=== PATIENT | female | born 1945 | race African-American/Black ===

== ENCOUNTER 2016-11-23 12:37 | Inpatient (IN) ==
--- NOTE | 2016-11-23 12:50 | Emergency Department Note ---
Disposition Clinical Impression: Hyperkalemia, Refusal of blood transfusions as patient is Shinto Anemia in chronic kidney disease (CKD) Qualifiers: Chronic kidney disease stage: stage 5, not on chronic dialysis Qualified Code(s ): N18.5 - Chronic kidney disease, stage 5 CKD (chronic kidney disease) Qualifiers: Chronic kidney disease stage: stage 5, not on chronic dialysis Qualified Code(s ): N18.5 - Chronic kidney disease, stage 5 Disposition: Admitted As Inpatient Referrals: Abelino Dunlap MD [Primary Care Provider] - Forms: ED Satisfaction Letter Weakness HPI - General Chief complaint: ED Recheck/Abnormal Lab/Rx Stated complaint: Abnormal Labs Time Seen by Provider: 11/23/16 12:42 Source: patient Mode of arrival: EMS Nursing Notes Reviewed: Yes Vital Signs Reviewed: Yes - History of Present Illness Pt Subjective Complaint: generalized weakness/fatigue Onset (ago): week(s) (3) Duration: constant Location: generalized Improves with: none Worsens with: none Associated symptoms: Reports: denies other symptoms, other (Patient was admitted in July received IV iron infusion and Procrit injection she followed nephrology in [place] but they were considering dialysis in the near future) - Related Data Allergies Allergy/AdvReac Type Severity Reaction Status Date / Time No Known Allergies Allergy Verified 11/23/16 12:58 All systems ED: reviewed and negative except as stated. Constitutional: Reports: weakness. Denies: fever, chills Respiratory: Denies: dyspnea, wheezes, hemoptysis Gastrointestinal: Denies: hematemesis, melena, hematochezia Past Medical History - Past Medical History Source: patient, obtained from family, nursing notes reviewed Medical history: Reports: renal disease Physical Exam - General Limitations: no limitations General appearance: alert, in no apparent distress - Head Head exam: atraumatic, normocephalic, normal inspection - Eye Eye exam: Present: normal appearance, PERRL, EOMI - Expanded Eye Exam Pupils: Left: reactive - ENT ENT exam: normal exam, normal oropharynx, mucous membranes moist - Expanded ENT Exam External ear exam: Present: normal external inspection Mouth exam: Present: normal external inspection Teeth exam: Present: normal inspection Throat exam: Present: normal inspection - Neck Neck exam: Present: normal inspection, full ROM, trachea midline - Chest Chest inspection: Present: normal inspection, symmetric chest wall rise - Respiratory Respiratory exam: Present: normal lung sounds bilaterally - Cardiovascular Cardiovascular exam: Present: systolic murmur - Abdominal Exam Abdominal exam: Present: soft, Non-Tender. Absent: tenderness, distention, guarding, rebound, rigidity - Extremities Exam Extremities exam: Present: normal inspection, full ROM. Absent: tenderness, pedal edema - Expanded Upper Extremity Exam Shoulder exam: Present: normal inspection, full ROM Arm exam: Present: normal inspection, full ROM Elbow exam: Present: normal inspection, full ROM Forearm/Wrist exam: Present: normal inspection, full ROM Hand exam: Present: normal inspection, full ROM Vascular exam: Normal: capillary refill, radial pulse - Expanded Lower Extremity Exam Hip/Pelvis exam: Present: normal inspection, full ROM Upper leg exam: Present: normal inspection, full ROM Knee exam: Present: normal inspection, full ROM Lower leg exam: Present: other (2+ bilat pitting edema) Ankle exam: Present: normal inspection, full ROM Foot/toe exam: Present: normal inspection, full ROM Neurovascular/Tendon exam: Absent: motor deficit, sensory deficit, tendon deficit - Back Exam Back exam: Present: normal inspection, full ROM. Absent: tenderness - Neurological Exam Neurological exam: Present: alert, oriented X3 - Expanded Neurological Exam Patient oriented to: Present: person, place, time Coma Scale Eye Opening: Spontaneous Coma Scale Motor Response: Obeys Commands Coma Scale Verbal Response: Oriented Coma Scale Total: 15 - Psychiatric Psychiatric exam: Present: normal affect, normal mood - Skin Skin exam: Present: warm, dry, intact, normal color Course - Consultations Consultation #1: Dr. Pineda consulted gentle IV fluid hydration, one dose 45gm kayexalate, no IV iron, will see today in the afternoon after clinic on the floor. Time: 14:27 Vital Signs Temperature 98.0 F 11/23/16 12:43 Pulse Rate 66 11/23/16 12:43 Respiratory Rate 16 11/23/16 12:43 Blood Pressure 187/70 11/23/16 12:43 O2 Sat by Pulse Oximetry 100 11/23/16 12:43 Temperature 98.0 F 11/23/16 12:43 Pulse Rate 69 11/23/16 14:18 Respiratory Rate 16 11/23/16 14:18 Blood Pressure 183/69 11/23/16 14:18 O2 Sat by Pulse Oximetry 100 11/23/16 14:18 Oxygen Delivery Oxygen Delivery Room Air Weakness - Lab Data Result diagrams: 11/23/16 13:10 11/23/16 13:10 Lab Results 11/23/16 11/23/16 11/23/16 Range/Units 13:10 13:10 13:10 WBC 6.8 (4.3-11.1) K/mcL RBC 1.98 L (3.82-4.97) M/mcL Hgb 6.1 L (11.5-15.4) g/dL Hct 20.2 L (35.3-44.9) % MCV 102.0 H (83.0-100.0) fL MCH 30.8 (28.0-33.3) pg MCHC 30.2 L (31.6-35.5) g/dL RDW 14.8 H (11.5-14.5) % Plt Count 190 (140-400) K/mcL MPV 10.4 (9.4-12.4) fL Immature Gran % 1.0 (0-4) % Seg Neutrophils % 71.0 % Lymphocytes % 22.1 % Monocytes % 3.4 % Eosinophils % 2.1 % Basophils % 0.4 % Neutrophils # 4.8 (1.6-8.9) K/mcL Lymphocytes # 1.5 (0.6-4.6) K/mcL Monocytes # 0.2 (0.0-1.3) K/mcL Eosinophils # 0.1 (0.0-0.6) K/mcL Basophils # 0.0 (0.0-0.2) K/mcL PT 10.8 (9.4-12.1) Seconds INR 1.0 APTT 40.8 H (26.0-36.0) Seconds Sodium 137 (136-145) mEq/L Potassium 5.6 H (3.5-4.5) mEq/L Chloride 113 H (98-109) mEq/L Carbon Dioxide 18 L (19-29) mEq/L BUN 69 H (7-20) mg/dL Creatinine 6.45 H (0.57-1.11) mg/dL Est GFR ( Amer) 8 L (> 60) Est GFR (Non-Af Amer) 6 L (> 60) BUN/Creatinine Ratio 11 (6-26) Glucose 89 (70-99) mg/dL Calculated Osmolality 304 H (280-300) Calcium 8.8 (8.6-10.8) mg/dL Magnesium 1.7 (1.6-2.6) mg/dL Iron (50-170) mcg/dL % Saturation (15-50) % Transferrin (180-382) mg/dL TSH 3.367 (0.350-4.840) mcIU/mL Blood Type Antibody Screen 11/23/16 11/23/16 Range/Units 13:10 13:10 WBC (4.3-11.1) K/mcL RBC (3.82-4.97) M/mcL Hgb (11.5-15.4) g/dL Hct (35.3-44.9) % MCV (83.0-100.0) fL MCH (28.0-33.3) pg MCHC (31.6-35.5) g/dL RDW (11.5-14.5) % Plt Count (140-400) K/mcL MPV (9.4-12.4) fL Immature Gran % (0-4) % Seg Neutrophils % % Lymphocytes % % Monocytes % % Eosinophils % % Basophils % % Neutrophils # (1.6-8.9) K/mcL Lymphocytes # (0.6-4.6) K/mcL Monocytes # (0.0-1.3) K/mcL Eosinophils # (0.0-0.6) K/mcL Basophils # (0.0-0.2) K/mcL PT (9.4-12.1) Seconds INR APTT (26.0-36.0) Seconds Sodium (136-145) mEq/L Potassium (3.5-4.5) mEq/L Chloride (98-109) mEq/L Carbon Dioxide (19-29) mEq/L BUN (7-20) mg/dL Creatinine (0.57-1.11) mg/dL Est GFR ( Amer) (> 60) Est GFR (Non-Af Amer) (> 60) BUN/Creatinine Ratio (6-26) Glucose (70-99) mg/dL Calculated Osmolality (280-300) Calcium (8.6-10.8) mg/dL Magnesium (1.6-2.6) mg/dL Iron 47 L (50-170) mcg/dL % Saturation 29 (15-50) % Transferrin 115 L (180-382) mg/dL TSH (0.350-4.840) mcIU/mL Blood Type O POSITIVE Antibody Screen NEGATIVE
[2016-11-23 13:22] LABS: Basophils % 0.4 %; Eosinophils # 0.1 K/mcL (0.0-0.6); Eosinophils % 2.1 %; Hematocrit 20.2 % (35.3-44.9); Lymphocytes # 1.5 K/mcL (0.6-4.6); Lymphocytes % 22.1 %; Mean Corpuscular HGB Conc 30.2 g/dL (31.6-35.5); Mean Corpuscular Hemoglobin 30.8 pg (28.0-33.3); Mean Platelet Volume 10.4 fL (9.4-12.4); Monocytes # 0.2 K/mcL (0.0-1.3); Monocytes % 3.4 %; Neutrophils # 4.8 K/mcL (1.6-8.9); Platelet Count 190 K/mcL (140-400); Red Blood Count 1.98 M/mcL (3.82-4.97); Red Cell Distribution Width 14.8 % (11.5-14.5)
[2016-11-23 13:34] LABS: Calcium 8.8 mg/dL (8.6-10.8); Magnesium 1.7 mg/dL (1.6-2.6); Potassium 5.6 mEq/L (3.5-4.5); Prothrombin Time 10.8 Seconds (9.4-12.1)
[2016-11-23 13:35] LABS: % Iron Saturation 29 % (15-50); Iron 47 mcg/dL (50-170); Transferrin 115 mg/dL (180-382)
[2016-11-23 13:37] LABS: Activated Partial Thrombo Time 40.8 Seconds (26.0-36.0)
[2016-11-23 13:46] LABS: Hemoglobin 6.1 g/dL (11.5-15.4)
[2016-11-23 13:56] LABS: Thyroid Stimulating Hormone 3.367 mcIU/mL (0.350-4.840)
[2016-11-23] MEDS ORDERED: 0.9 % Sodium Chloride 1,000 ML IVC ONE (14:25)
[2016-11-23] MEDS ORDERED: cloNIDine HCl 0.1 MG TABLET PO ONE (14:36)
--- NOTE | 2016-11-23 14:44 | Internal Med History&Physical ---
<MandeepPayam Flores - Last Filed: 11/23/16 16:35> Date of Encounter: 11/23/16 Time of Encounter: 14:45 Assessment and Plan (1) Anemia in chronic kidney disease (CKD) Current visit: Yes Status: Acute Patient presents with acute on chronic anemia based on current drop in H/H. Upon admission today, patient's Hgb was 6.1 and Hct was 20.2. On 05/09/16, patient 's Hgb was 7.9 and Hct was 25.2. Patient currently is in stage V CKD wth a GFR of 6. Patient refuses transfusions due to muslim beliefs. Risks and dangers explained to patient who acknowledged understanding and still refused transfusions if needed. Patient has received IV iron and Procrit injections in the past. Nephrology consult ordered. Per Dr. Pineda, patient to have gentle IV fluid hydration (75 mL/HR), no IV iron, and one dose of 45 gm kayexalate for current hyperkalemia. Will monitor patient through follow-up labs and H/H ordered Q6. Will continue patient's PO ferrous sulfate and folic acid. Qualifiers: Chronic kidney disease stage: stage 5, not on chronic dialysis Qualified Code(s): N18.5 - Chronic kidney disease, stage 5; D63.1 - Anemia in chronic kidney disease (2) Refusal of blood transfusions as patient is [employer] Current visit: Yes Status: Acute Patient refuses blood transfusions due to her muslim beliefs as being a [employer]. Patient has a history of chronic anemia and current Hgb is 6.1 and Hct is 20.2 today. On 05/09/16, patient's Hgb was 7.9 and Hct was 25.2. Patient denies any unusual or active bleeding at this time. Type and screen and transfusion is not an option for this patient due to her muslim beliefs. Risks and outcomes were explained to the patient regarding not receiving transfusion of RBCs for which she confirmed understanding. Patient denied transfusion again following risk/outcome discussion. Ms. Park does report receiving IV iron and Procrit injections in the past due to similar symptoms, with the last time on July 11, 2016. (3) Weakness of both lower extremities Current visit: Yes Status: Acute Patient presents with history of acute weakness of bilateral lower extremities most likely due to current anemia. Patient placed as falls precautions/up with assist/bed rest with bedside commode with assist only due to weakness. PT/OT consults ordered to assess patient for strengthening exercises and needs. SW consult ordered to assess patient's home needs post-discharge. (4) Hyperkalemia Current visit: Yes Status: Acute Patient presents with acute hyperkalemia upon admission to the ED with a potassium level of 5.6. Patient currently has chronic anemia, CKD stage V w/o dialysis, and uses daily Lasix for diagnosis of CHF. Patient given 1 dose of 45 g Kayexalate while in the ED. Will monitor patient's potassium levels to follow-up labs. (5) HTN (hypertension) Current visit: Yes Status: Chronic Patient presents with history of chronic hypertension. Patient's BP on admission to the ED today was 187/70 and 183/69. We will monitor patient vital signs and continue patient's Coreg and hydralazine. Qualifiers: Hypertension type: essential hypertension Qualified Code(s): I10 - Essential (primary) hypertension (6) Diabetes Current visit: Yes Status: Chronic Patient presents with history of chronic diabetes for which she states she only uses sliding scale when needed. A1c ordered. Blood glucose ACHS. Will use low- dose correction insulin sliding scale and hypoglycemia protocol. Diabetic diet ordered with 1.5L daily fluid restriction. Qualifiers: Diabetes mellitus type: type 2 Diabetes mellitus complication status: with kidney complications Diabetes mellitus complication detail: with chronic kidney disease Diabetes mellitus residential insulin use: unspecified residential insulin use status Chronic kidney disease stage: stage 5, not on chronic dialysis Qualified Code(s): E11.22 - Type 2 diabetes mellitus with diabetic chronic kidney disease; N18.5 - Chronic kidney disease, stage 5 (7) CHF (congestive heart failure) Current visit: Yes Status: Chronic Patient presents with history of chronic congestive heart failure. Patient reports some mild shortness of breath related to CHF currently but does not appear to be fluid overloaded. 1.5 L fluid restriction daily ordered. DuoNeb' s every 4 when necessary ordered. Patient placed on continuous cardiac telemetry with order for echocardiogram and CXR. Will monitor patient and vital signs. Qualifiers: Congestive heart failure type: unspecified congestive heart failure type Congestive heart failure chronicity: chronic Qualified Code(s): I50.9 - Heart failure, unspecified (8) CKD (chronic kidney disease) Current visit: Yes Status: Chronic Patient presents with stage V chronic kidney disease with a current GFR of 6. Patient is not currently on dialysis and reports she is able to make large amounts of urine due to the Lasix she takes daily. Patient's current creatinine is 6.45 on admission. Consult to nephrology placed in ED and per Dr. Villeda, patient received gentle IV fluid hydration, 1 dose of 45 g Kayexalate, and no IV iron. He will see patient today. 1.5 L fluid restriction daily and will monitor patient's I&O and daily weight. Qualifiers: Chronic kidney disease stage: stage 5, not on chronic dialysis Qualified Code(s): N18.5 - Chronic kidney disease, stage 5 (9) DVT prophylaxis Current visit: Yes Status: Acute Patient to be placed on DVT prophylaxis due to current admission protocol and bed rest status. Due to patient's chronic anemia due to possible GI bleed of unknown source, pharmacologic prophylaxis is contraindicated at this time. Fecal occult stool ordered. Will place SCDs on patient's bilateral LEs for DVT prophylaxis. Internal Medicine - H&P: HPI Chief complaint: Abnormal labs/ Admitted From: Emergency Dept Plans for Post Hospital Care: Home History of present illness: Ms. Park is a 71 year old female who presents from the ED for follow-up of abnormal lab values. Patient has a history of chronic anemia and current Hgb is 6.1 and Hct is 20.2 today. On 05/09/16, patient's Hgb was 7.9 and Hct was 25.2. Patient denies any unusual or active bleeding at this time. Type and screen and transfusion is not an option for this patient due to her muslim beliefs. Risks and outcomes were explained to the patient regarding not receiving transfusion of RBCs for which she confirmed understanding. Patient denied transfusion again following risk/outcome discussion. Ms. Park does report receiving IV iron and Procrit injections in the past due to similar symptoms, with the last time on July 11, 2016. Patient presently has a heart murmur on examination which she reports she has had since childhood. Patient is not currently on anticoagulation with the exception of 81 mg aspirin daily. Patient also has stage V kidney disease and has had prior discussions regarding the need for possible dialysis. Patient states that she currently takes lasix and is able to make large amounts of urine, but is sometimes incontinent. Patient's medical history includes, CKD stage V, DM, HTN, and CHF. Patient reports frequent falls due to bilateral leg weakness and some SOB related to her CHF but denies recent illness, fever, chills, nausea, vomiting, headaches, abdominal pain, unusual bleeding, dizziness, pre-syncope, or syncope. Patient is at high risk for further morbidity due to current anemia, weakness, and co- morbid conditions and will be placed as observation status with orders for Nephrology consult placed in the ED. Per Dr. Pineda, patient to receive gentle IV fluid hydration, one dose of 45 gm kayexalate, and no IV iron. Dr. Pineda will see Ms. Park today for further evaluation. Patient placed on continuous telemetry due to current hyperkalemia. Orders for echocardiogram and CXR placed. Will continue patient's home meds with diabetic diet and fluid restriction of 1.5L daily ordered. Will monitor I&O and daily weight and well as H/H Q6. Patient to be monitored closely for signs of cardiac and/or respiratory distress. Time spent with patient and family >40 minutes. Past Med Surg Social Fam HX - Past Medical History Source: patient Medical history: CHF, diabetes (Patient reports using only sliding scale insulin when needed), hypertension, renal disease Psychiatric history: no psych history - Social History Smoking Status: Former smoker Packs per day: 1/2 PPD - reports quitting in 1973 Smokeless Tobacco Status: No Alcohol use: none Drug use: none Occupational status: previously employed Current living situation: Home, With Family Activity Level: Uses cane/walker Recent Out of Country Travel Within the Last 8 Weeks: No Exposure or Possible Exposure to Illness During Travel: No - Family History Father Race: Family Member Ethnicity: Non- Living Status: Age at : 80 Cause of : Prostate cancer Hx Family Cardiac Disorders: Yes (HTN) Hx Family Cancer: Yes (Prostate) Hx Family Endocrine Disorder: Yes (DM) Mother Race: Family Member Ethnicity: Non- Living Status: Age at : 62 Cause of : Complications from DM Hx Family Cardiac Disorders: Yes (HTN) Hx Family Endocrine Disorder: Yes (DM) Brother Race: Family Member Ethnicity: Non- Living Status: Age at : 39 Cause of : DVT Hx Family Cardiac Disorders: Yes (DVT) Sister Race: Family Member Ethnicity: Non- Living Status: Age at : 59 Cause of : Complications from DM Hx Family Cardiac Disorders: Yes (HTN) Internal Medicine - H&P: Meds Aspirin [Lo-Dose Aspirin EC] 81 mg PO DAILY 11/23/16 [History] Carvedilol [Coreg] 25 mg PO BID 11/23/16 [History] CloNIDine HCl [Kapvay] 0.1 mg PO TID 11/23/16 [History] Ferrous Sulfate [Iron] 325 mg PO DAILY 11/23/16 [History] Folic Acid 1 mg PO DAILY 11/23/16 [History] Furosemide [Lasix] 20 mg PO MOWEFR 11/23/16 [History] Furosemide [Lasix] 40 mg PO TUTHSA 11/23/16 [History] Hydralazine HCl 100 mg PO TID 11/23/16 [History] Isosorbide MONOnitrate [Isosorbide Mononitrate ER] 120 mg PO DAILY 11/23/16 [ History] NIFEdipine [Nifedipine ER] 90 mg PO DAILY 11/23/16 [History] 3 Allergy/AdvReac Type Severity Reaction Status Date / Time No Known Allergies Allergy Verified 11/23/16 12:58 All Systems PM: A 10-system review of systems was performed and is negative for pertinent findings except as documented above in the HPI. - Constitutional Constitutional: as per HPI, falls, weakness (Bilateral LEs), no chills, no fever (s), no night sweats - EENT Eyes: no change in vision, no discharge, no pain, no photophobia Ears: no ear discharge, no ear pain, no tinnitus Nose, mouth and throat: no dysphagia, no nasal discharge, no neck pain, no sore throat - Breasts Breasts: as per HPI - Cardiovascular Cardiovascular ROS IM: as per HPI, dyspnea, irregular heart rhythm - Respiratory Respiratory: as per HPI, dyspnea - Gastrointestinal Gastrointestinal: no abdominal pain, no diarrhea, no hematemesis, no hematochezia, no melena, no nausea, no vomiting - Genitourinary Genitourinary: no change in urinary stream, no dysuria, no flank pain, no hematuria Menstruation: as per HPI - Musculoskeletal Musculoskeletal ROS IM: no numbness, no tingling - Integumentary Integumentary IM: no rash, no unusual bruising - Neurological Neurological ROS: no confusion, no convulsions, no focal weakness, no numbness, no tingling, no tremor(s) - Psychiatric Psychiatric: as per HPI - Endocrine Endocrine IM: as per HPI - Hematologic/Lymphatic Hematologic/Lymphatic: no easy bruising - Allergic/Immunologic Allergic/Immunologic: as per HPI - Constitutional Vitals: Temp Pulse Resp BP Pulse Ox 98.0 F 69 16 183/69 100 11/23/16 12:43 11/23/16 14:18 11/23/16 14:18 11/23/16 14:18 11/23/16 14:18 General appearance: Present: cooperative, A&O X 3, pleasant, no acute distress, obese, answers questions appropriately - Head Head exam: Present: atraumatic, normocephalic - Eye Eye exam: Present: PERRL, conjuntiva pink, sclera anicteric Pupils: Present: PERRL - ENT ENT exam: Present: normal exam, normal external ear exam - Neck Neck exam general surgery: Present: normal inspection, supple, trachea midline. Absent: lymphadenopathy - Respiratory Respiratory exam: Present: CTAB. Absent: accessory muscle use, rales, rhonchi, wheezes - Cardiovascular Cardiovascular exam: Present: irregular rhythm - GI/Abdominal GI/Abdominal exam: Present: normal bowel sounds, soft, no peritoneal signs. Absent: distended, tenderness - Rectal Rectal exam: Present: deferred - Additional comments: exam deferred. - Extremities Exam Extremities exam: Present: pedal edema, warm, radial pulses palpable and symmetrical - Back Exam Back exam: Present: normal inspection - Neurological Exam Neurological exam: Present: CN II-XII intact, oriented X3, no focal deficits. Absent: pronater drift, facial droop, speech deficit - Psychiatric Psychiatric exam: Present: normal affect, normal mood - Skin Skin exam: Present: dry, intact Internal Med - H&P Results - Labs CBC & Chem 7: 11/23/16 16:08 11/23/16 13:10 Labs: Short CBC 11/23/16 Range/Units 13:10 WBC 6.8 (4.3-11.1) K/mcL Hgb 6.1 L (11.5-15.4) g/dL Hct 20.2 L (35.3-44.9) % Plt Count 190 (140-400) K/mcL Neutrophils # 4.8 (1.6-8.9) K/mcL BMP 11/23/16 13:10 Sodium 137 Potassium 5.6 H Chloride 113 H Carbon Dioxide 18 L BUN 69 H Creatinine 6.45 H Glucose 89 Calcium 8.8 <Orlando Mohan - Last Filed: 11/23/16 19:30> Date of Encounter: 11/23/16 Internal Medicine - H&P: HPI History of present illness: Ms. Park is a 71 year old female All Systems PM: A 10-system review of systems was performed and is negative for pertinent findings except as documented above in the HPI. - Constitutional Vitals: Temp Pulse Resp BP Pulse Ox 98.3 F 91 17 205/65 94 11/23/16 15:43 11/23/16 15:43 11/23/16 15:43 11/23/16 15:43 11/23/16 15:43 Internal Med - H&P Results - Labs CBC & Chem 7: 11/23/16 16:08 11/23/16 13:10 Labs: Short CBC 11/23/16 Range/Units 16:08 Hgb 6.3 L (11.5-15.4) g/dL Hct 21.3 L (35.3-44.9) % - Impressions ITS Impressions Chest X-Ray 11/23/16 15:16 IMPRESSION: Left basilar airspace disease, atelectasis or pneumonia. Asymmetric pulmonary edema is considered less likely. D/ / Julianne Nova Cha, MD / Julianne Nova Cha, MD Interpreting Provider: Julianne Nova Cha, MD - Attending Attestation I saw and examined pt. I have discussed with CHANNEL REBUILDER regarding the management plan, agree with the documentation. Pt came with low Hgb, refuse transfusion b/o muslim belief. Anemia was considered by CKD. Nephrology consult appreciated. Recommendation will be followed.
[2016-11-23] MEDS ORDERED: Ondansetron 4 MG/2 ML VIAL IVP PRN (15:12)
[2016-11-23] MEDS ORDERED: Acetaminophen 325 MG TABLET PO PRN (15:12)
[2016-11-23] MEDS ORDERED: *HR* HYDROcodone/Acet 5/325 mg TABLET PO PRN (15:12)
[2016-11-23] MEDS ORDERED: Naloxone 0.4 MG/ML INJ IVP PRN (15:12)
[2016-11-23] MEDS ORDERED: D5% in Water 1,000 ML IVC PRN (16:01)
[2016-11-23] MEDS ORDERED: *HR* Dextrose 50 % in Water (Syg) 50 ML SYRINGE IVP PRN (16:01)
[2016-11-23] MEDS ORDERED: Dextrose Gel 15 GM PO PRN ×2 (16:01)
[2016-11-23] MEDS ORDERED: Ipratropium/Albuterol Neb 3 ML IH PRN (16:18)
[2016-11-23 16:31] LABS: Hematocrit 21.3 % (35.3-44.9); Hemoglobin 6.3 g/dL (11.5-15.4)
[2016-11-23] MEDS ORDERED: Nitroglycerin 1 INCH/GM PACKET ONE (17:51)
[2016-11-23] MEDS: Furosemide 20 MG TABLET PO SCH (17:59)
[2016-11-23] MEDS: Pantoprazole 40 MG VIAL IVP SCH (17:59)
--- NOTE | 2016-11-23 17:59 | Nephrology Consult Note ---
Date of Encounter: 11/23/16 Time of Encounter: 17:56 Assessment and Plan (1) CKD (chronic kidney disease), stage V Current Visit: Yes Status: Chronic Will hold off on HD tonight but should aim to lower BPs. Hydralazine IV, Nitro paste, and then if needed nicardipen gtt. Will arrange for IV iron but she is too hypertensive for any EPO tonight. She is new to the [facility], originally from [place], [place]. She said that she has not seen a automobile upholstery trim installer here locally. Just in case she needs a Permacath before discharge, please hold ASA and/or any antiplatelet agent. Thank you for consulting the [facility]. Will follow with you (2) Anemia in chronic kidney disease (CKD) Current Visit: Yes Status: Chronic Suspect she has an acute on already chronically severe anemia. Mild iron def, so will provide IV iron since she refuses PRBCs. Would not add EPO tonight d/t severely elevated HTN. Qualifiers: Chronic kidney disease stage: stage 5, not on chronic dialysis Qualified Code(s): N18.5 - Chronic kidney disease, stage 5; D63.1 - Anemia in chronic kidney disease (3) Hyperkalemia Current Visit: Yes Status: Acute Kayexalate today. (4) Refusal of blood transfusions as patient is Baptism Current Visit: Yes Status: Chronic See above (5) Weakness of both lower extremities Current Visit: Yes Status: Acute Generalized weakness likely d/t advanced CKD and anemia. (6) HTN (hypertension) Current Visit: Yes Status: Chronic See above Qualifiers: Hypertension type: essential hypertension Qualified Code(s): I10 - Essential (primary) hypertension (7) Metabolic acidosis Current Visit: Yes Status: Acute likely d/t the CKD. If HD is not started during this hospitalization, then I'd recommend adding [place] History of Present Illness - Reason for Consult Consult date: 11/23/16 Chronic Kidney Disease, hyperkalemia, accelerated hypertension Requesting physician: Orlando Mohan - Chief Complaint Fatigue - History of Present Illness Lita Park is a very pleasant 71 y/o AAF with a pmh of known advanced CKD ( unclear of baseline stage), chronic anemia, longstanding uncontrolled HTN, and et al who presented to the ER with severe fatigue. She says that she saw a automobile upholstery trim installer in [place] but has not seen a automobile upholstery trim installer or "dialysis doctor" here in [place]. Nephrology was consulted for hyperkalemia, advanced CKD and anemia of presumed CKD etiology. She said she refuses any transfusion of blood. She denied NSAID use, N/V, CP, D, dysuria, abd pain, prior renal stones. She denied visible blood loss. She has previously received IV iron in the past while in [place], and specifically denied any skin or allergic reaction. Past Med Surg Social Fam HX - Past Medical History Medical history: CHF, diabetes (Patient reports using only sliding scale insulin when needed), hypertension, renal disease Psychiatric history: no psych history - Past Surgical History Surgical History: hysterectomy - Social History Smoking Status: Former smoker Packs per day: 1/2 PPD - reports quitting in 1973 Smokeless Tobacco Status: No Alcohol use: none Drug use: none - Family History Father Race: Family Member Ethnicity: Non- Living Status: Age at : 80 Cause of : Prostate cancer Hx Family Cardiac Disorders: Yes (HTN) Hx Family Cancer: Yes (Prostate) Hx Family Endocrine Disorder: Yes (DM) Mother Race: Family Member Ethnicity: Non- Living Status: Age at : 62 Cause of : Complications from DM Hx Family Cardiac Disorders: Yes (HTN) Hx Family Endocrine Disorder: Yes (DM) Brother Race: Family Member Ethnicity: Non- Living Status: Age at : 39 Cause of : DVT Hx Family Cardiac Disorders: Yes (DVT) Sister Race: Family Member Ethnicity: Non- Living Status: Age at : 59 Cause of : Complications from DM Hx Family Cardiac Disorders: Yes (HTN) Medications and Allergies Aspirin [Lo-Dose Aspirin EC] 81 mg PO DAILY 11/23/16 [History] Carvedilol [Coreg] 25 mg PO BID 11/23/16 [History] CloNIDine HCl [Kapvay] 0.1 mg PO TID 11/23/16 [History] Ferrous Sulfate [Iron] 325 mg PO DAILY 11/23/16 [History] Folic Acid 1 mg PO DAILY 11/23/16 [History] Furosemide [Lasix] 20 mg PO MOWEFR 11/23/16 [History] Furosemide [Lasix] 40 mg PO TUTHSA 11/23/16 [History] Hydralazine HCl 100 mg PO TID 11/23/16 [History] Isosorbide MONOnitrate [Isosorbide Mononitrate ER] 120 mg PO DAILY 11/23/16 [ History] NIFEdipine [Nifedipine ER] 90 mg PO DAILY 11/23/16 [History] 3 Allergy/AdvReac Type Severity Reaction Status Date / Time No Known Allergies Allergy Verified 11/23/16 12:58 Review of Systems All Systems: reviewed and no additional remarkable complaints except as stated Exam - Vital Signs Vital signs: Initial Vital Signs Temp Pulse Resp BP Pulse Ox 98.0 F 66 16 187/70 100 11/23/16 12:43 11/23/16 12:43 11/23/16 12:43 11/23/16 12:43 11/23/16 12:43 Vital Signs - Last 8 Hours Temp Pulse Resp BP Pulse Ox 11/23/16 15:43 98.3 F 91 17 205/65 94 11/23/16 14:54 16 181/68 Intake and Output 11/23/16 11/23/16 11/23/16 07:59 15:59 23:59 Other: Weight 81.25 kg Blood Glucose* 91 Patient Weight 11/23/16 23:59 Weight 81.25 kg - General Appearance General appearance: well-developed, well-nourished, chronically ill, fatigue, frail EENT: ATNC, PERRL, mucous membranes moist Neck: supple Respiratory: clear Cardiology: edema (only trace ankle edema), normal S1, normal S2 Gastrointestinal: normoactive bowel sounds, no tenderness, no guarding Integumentary: no rash, warm and dry Neurologic: no focal deficit, no asterixis, alert and oriented x3 Musculoskeletal: no deformities, no erythema Psychiatric: mood/affect appropriate, cooperative Results - Lab Results 11/23/16 16:08 11/23/16 13:10 Most recent lab results Calcium 8.8 mg/dL (8.6-10.8) 11/23/16 13:10 Magnesium 1.7 mg/dL (1.6-2.6) 11/23/16 13:10 I reviewed the above data stovall including labs, meds, vitals, I/Os, progress notes and imaging. Consult Discharge Plan - Plan Referrals: Abelino hopper MD [Primary Care Provider] -
[2016-11-23] MEDS: Insulin LISPRO 300 UNITS/3 ML VIAL SQ SCH ×2 (18:00→21:16)
[2016-11-23] MEDS ORDERED: Nitroglycerin 1 INCH/GM PACKET TP SCH (18:00)
[2016-11-23] MEDS ORDERED: Ferumoxytol 510 MG in 0.9 % Sodium Chloride 100 ML IVPB ONE (18:01)
[2016-11-23] MEDS ORDERED: Nitroglycerin 1 INCH/GM PACKET TP PRN (20:34)
[2016-11-23] MEDS: cloNIDine HCl 0.1 MG TABLET PO SCH (21:15)
[2016-11-23] MEDS: hydrALAZINE 25 MG TABLET PO SCH (21:15)
[2016-11-23 21:38] LABS: Hemoglobin 6.4 g/dL (11.5-15.4)
[2016-11-24 04:17] LABS: Basophils % 0.3 %; Eosinophils # 0.1 K/mcL (0.0-0.6); Hematocrit 17.2 % (35.3-44.9); INR 1.1; Lymphocytes # 1.9 K/mcL (0.6-4.6); Lymphocytes % 31.6 %; Mean Corpuscular HGB Conc 30.2 g/dL (31.6-35.5); Mean Corpuscular Volume 102.4 fL (83.0-100.0); Monocytes # 0.3 K/mcL (0.0-1.3); Monocytes % 4.9 %; Neutrophils # 3.6 K/mcL (1.6-8.9); Platelet Count 161 K/mcL (140-400); Prothrombin Time 11.5 Seconds (9.4-12.1); Red Blood Count 1.68 M/mcL (3.82-4.97); Red Cell Distribution Width 14.7 % (11.5-14.5); Segmented Neutrophils % 60.2 %
[2016-11-24 04:20] LABS: Activated Partial Thrombo Time 29.4 Seconds (26.0-36.0)
[2016-11-24 04:27] LABS: Hemoglobin 5.2 g/dL (11.5-15.4)
[2016-11-24 04:29] LABS: Calcium 8.1 mg/dL (8.6-10.8); Magnesium 1.6 mg/dL (1.6-2.6); Potassium 4.7 mEq/L (3.5-4.5)
[2016-11-24 04:56] LABS: Hypochromasia Present (Not Present); Platelet Estimate Normal (Normal)
[2016-11-24 05:00] LABS: Hepatitis B Surface Antibody 0.48 mIU/mL; Hepatitis B Surface Antigen Nonreactive (Nonreactive)
[2016-11-24] MEDS: Insulin LISPRO 300 UNITS/3 ML VIAL SQ SCH ×4 (07:33→23:12)
[2016-11-24] MEDS: Pantoprazole 40 MG VIAL IVP SCH (08:01)
[2016-11-24] MEDS: Folic Acid 1 MG TABLET PO SCH (08:01)
[2016-11-24] MEDS: Isosorbide MONOnitrate (24 HR) 60 MG TAB.ER.24H PO SCH (08:01)
[2016-11-24] MEDS: NIFEdipine XL (24 HR) 30 MG TAB.ER.24 PO SCH (08:01)
[2016-11-24] MEDS: hydrALAZINE 25 MG TABLET PO SCH ×3 (08:01→21:49)
[2016-11-24] MEDS: cloNIDine HCl 0.1 MG TABLET PO SCH ×3 (08:02→21:49)
[2016-11-24] MEDS ORDERED: Aspirin Enteric Coated 81 MG Tablet PO SCH (09:00)
[2016-11-24 10:28] LABS: Estimated Average Glucose < 68 mg/dl; Hemoglobin A1C <= 3.9 %
--- NOTE | 2016-11-24 10:34 | Nephrology Progress Note ---
Date of Encounter: 11/24/16 Time of Encounter: 09:00 - Assessment and Plan (1) CKD (chronic kidney disease), stage V Current Visit: Yes Status: Chronic Will plan for HD initiation on Saturday after placing a Permacath Hgb low but already provided IV iron. Would transfuse but she is a Jehova's witness She voiced wanting to wait to discuss the initiation of dialysis with her family Meanwhile continue to follow a renal protective strategy HTN remains too elevated for EPO today. (2) Anemia in chronic kidney disease (CKD) Current Visit: Yes Status: Chronic See above Qualifiers: Chronic kidney disease stage: stage 5, not on chronic dialysis Qualified Code(s): N18.5 - Chronic kidney disease, stage 5; D63.1 - Anemia in chronic kidney disease (3) Hyperkalemia Current Visit: Yes Status: Acute Trending better (4) Refusal of blood transfusions as patient is Sabianist Current Visit: Yes Status: Chronic See above (5) Weakness of both lower extremities Current Visit: Yes Status: Acute Likely generally d/t her severe anemia and advanced renal dysfunction. Consider PT/OT when able. (6) HTN (hypertension) Current Visit: Yes Status: Chronic Likely d/t her advanced CKD Qualifiers: Hypertension type: essential hypertension Qualified Code(s): I10 - Essential (primary) hypertension (7) Metabolic acidosis Current Visit: Yes Status: Acute Likely d/t her advanced CKD Subjective Principal diagnosis: Renal failure and anemia Interval history: Pt was s/e and she did not affirm N/V/D but she did affirm fatigue. She stated that she did not want a blood transfusion and stated that she did not want a blood transfusion. Objective - Vital Signs Vital signs: Vital Signs Temp Pulse Resp BP Pulse Ox 11/24/16 08:15 97 11/24/16 07:05 98.3 F 66 16 197/75 97 11/24/16 04:25 98.6 F 84 16 184/64 92 11/23/16 23:20 98.3 F 74 16 155/55 95 11/23/16 21:26 99 11/23/16 19:34 97.7 F 64 16 113/57 99 11/23/16 18:06 94 11/23/16 15:43 98.3 F 91 17 205/65 94 08/18/17 14:54 16 181/68 Intake and Output 11/23/16 11/24/16 11/24/16 23:59 07:59 15:59 Intake Total 720 / 720 Balance 720 / 720 Intake: Oral 720 / 720 Other: Meal clears Percent of Meal Consumed 75% Blood Glucose* 93 83 - General Appearance Exam: General appearance: well-developed, well-nourished, chronically ill, fatigue, frail EENT: ATNC, PERRL, mucous membranes moist Neck: supple Respiratory: clear Cardiology: edema (only trace ankle edema), normal S1, normal S2 Gastrointestinal: normoactive bowel sounds, no tenderness, no guarding Integumentary: no rash, warm and dry Neurologic: no focal deficit, no asterixis, alert and oriented x3 Musculoskeletal: no deformities, no erythema Psychiatric: mood/affect appropriate, cooperative - Lab 11/25/16 04:37 11/25/16 04:37 Most recent lab results Calcium 8.1 mg/dL (8.6-10.8) L 11/24/16 03:57 Phosphorus 4.4 mg/dL (2.3-4.7) 11/24/16 03:57 Magnesium 1.6 mg/dL (1.6-2.6) 11/24/16 03:57 - VTE Documentation of Mechanical Device: Intermittent pneumatic compression device Consult Discharge Plan - Plan Referrals: Abelino Dunlap MD [Primary Care Provider] -
--- NOTE | 2016-11-24 14:26 | Internal Med Progress Note ---
Date of Encounter: 11/24/16 Time of Encounter: 14:24 - Assessment and plan (1) CKD (chronic kidney disease), stage V Current Visit: Yes Status: Chronic Assessment and plan: Admitted with stage V chronic kidney disease. Worsening creatinine along with BUN. Denies nausea, no pericardial rub, no epigastric pain, potassium is 4.7, bicarbonate is 17. Plan: Will follow the recommendations from nephrology. (2) Anemia in chronic kidney disease (CKD) Current Visit: Yes Status: Chronic Assessment and plan: Chronically severe anemia. Iron deficiency also contribute in above Not a candidate for EPO as she has elevated blood pressure. Patient follows a Alevism and refuses blood transfusion Qualifiers: Chronic kidney disease stage: stage 5, not on chronic dialysis Qualified Code(s): N18.5 - Chronic kidney disease, stage 5; D63.1 - Anemia in chronic kidney disease (3) Refusal of blood transfusions as patient is Alevism Current Visit: Yes Status: Chronic Assessment and plan: See above (4) HTN (hypertension) Current Visit: Yes Status: Chronic Assessment and plan: We will follow the nephrology recommendation Qualifiers: Hypertension type: essential hypertension Qualified Code(s): I10 - Essential (primary) hypertension - Subjective Interval history: Patient seen and examined. Chart reviewed. Patient is comfortably lying in a bed. Patient denies chest pain, shortness of breath, abdominal pain, nausea, vomiting and diarrhea. - Constitutional Vitals: Temp Pulse Resp BP Pulse Ox 98.1 F 63 18 109/44 98 11/24/16 10:38 11/24/16 10:38 11/24/16 10:38 11/24/16 10:38 11/24/16 10:38 General appearance: Present: cooperative, A&O X 3, pleasant, no acute distress, obese, answers questions appropriately - Head Head exam: Present: atraumatic, normocephalic - Eye Eye exam: Present: PERRL, conjuntiva pink, sclera anicteric Pupils: Present: PERRL - Neck Neck exam general surgery: Present: supple, trachea midline. Absent: lymphadenopathy - Respiratory Respiratory exam: Present: CTAB. Absent: accessory muscle use, rales, rhonchi, wheezes - Cardiovascular Cardiovascular exam: Present: RRR, +S1, +S2. Absent: diastolic murmur, gallop, rubs, systolic murmur - GI/Abdominal GI/Abdominal exam: Present: normal bowel sounds, soft, no peritoneal signs. Absent: distended, tenderness - Extremities Exam Extremities exam: Present: warm, radial pulses palpable and symmetrical. Absent : calf tenderness, cyanotic, pedal edema - Neurological Exam Neurological exam: Present: CN II-XII intact, oriented X3, no focal deficits. Absent: pronater drift, facial droop, speech deficit - Skin Skin exam: Present: dry, intact Internal Medicine: Result - Labs CBC & Chem 7: 11/24/16 03:57 11/24/16 03:57 Labs: Short CBC 11/23/16 11/23/16 11/24/16 Range/Units 16:08 21:30 03:57 WBC 5.9 (4.3-11.1) K/mcL Hgb 6.3 L 6.4 L 5.2 L* (11.5-15.4) g/dL Hct 21.3 L 21.0 L 17.2 L (35.3-44.9) % Plt Count 161 (140-400) K/mcL Neutrophils # 3.6 (1.6-8.9) K/mcL BMP 11/24/16 03:57 Sodium 139 Potassium 4.7 H Chloride 117 H Carbon Dioxide 17 L BUN 64 H Creatinine 6.46 H Glucose 73 Calcium 8.1 L - ABG Interpretation ABG results: PT/INR, D-dimer PT 11.5 Seconds (9.4-12.1) 11/24/16 03:57 - Impressions Impressions Chest X-Ray 11/23/16 15:16 IMPRESSION: Left basilar airspace disease, atelectasis or pneumonia. Asymmetric pulmonary edema is considered less likely. D/ / Julianne Nova Cha, MD / Julianne Nova Cha, MD Interpreting Provider: Julianne Nova Cha, MD - VTE Documentation of Mechanical Device: Intermittent pneumatic compression device Consult Discharge Plan - Plan Referrals: Fabi,Abelino Wisdom MD [Primary Care Provider] -
[2016-11-24] MEDS: Furosemide 40 MG TABLET PO SCH (17:06)
[2016-11-25 05:00] LABS: Hematocrit 17.1 % (35.3-44.9); Lymphocytes % 25.1 %
[2016-11-25 05:01] LABS: Basophils % 0.2 %; Eosinophils # 0.2 K/mcL (0.0-0.6); Eosinophils % 3.2 %; Immature Granulocytes % 0.6 % (0-4); Lymphocytes # 1.6 K/mcL (0.6-4.6); Mean Platelet Volume 11.1 fL (9.4-12.4); Monocytes # 0.4 K/mcL (0.0-1.3); Monocytes % 5.8 %; Neutrophils # 4.1 K/mcL (1.6-8.9); Platelet Count 168 K/mcL (140-400); Red Blood Count 1.71 M/mcL (3.82-4.97); Red Cell Distribution Width 14.6 % (11.5-14.5); Segmented Neutrophils % 65.1 %
[2016-11-25 05:02] LABS: Hemoglobin 5.3 g/dL (11.5-15.4)
[2016-11-25 05:21] LABS: Alanine Aminotransferase < 6 Units/L (0-55); Albumin/Globulin Ratio 0.8 (1.1-2.2); Alkaline Phosphatase 42 Units/L (38-126); Aspartate Amino Transferase 10 Units/L (5-34); BUN/Creatinine Ratio 11 (6-26); Bilirubin,Total < 0.3 mg/dL (0.2-1.2); Blood Urea Nitrogen 70 mg/dL (7-20); Calcium 7.7 mg/dL (8.6-10.8); Carbon Dioxide 16 mEq/L (19-29); Chloride 116 mEq/L (98-109); Globulin 2.5 g/dL (2.4-3.5); Glucose 92 mg/dL (70-99); Osmolality,Calculated 310 (280-300); Potassium 4.1 mEq/L (3.5-4.5); Sodium 140 mEq/L (136-145); Total Protein 4.5 g/dL (6.0-8.3); eGFR For African Americans 7 (> 60); eGFR For Non-African Americans 6 (> 60)
[2016-11-25] MEDS: Insulin LISPRO 300 UNITS/3 ML VIAL SQ SCH ×4 (08:00→21:13)
[2016-11-25] MEDS: NIFEdipine XL (24 HR) 30 MG TAB.ER.24 PO SCH (08:15)
[2016-11-25] MEDS: Folic Acid 1 MG TABLET PO SCH (08:16)
[2016-11-25] MEDS: cloNIDine HCl 0.1 MG TABLET PO SCH ×3 (08:16→21:12)
[2016-11-25] MEDS: Pantoprazole 40 MG VIAL IVP SCH (08:16)
[2016-11-25] MEDS: Isosorbide MONOnitrate (24 HR) 60 MG TAB.ER.24H PO SCH (08:16)
[2016-11-25] MEDS: hydrALAZINE 25 MG TABLET PO SCH ×3 (08:16→21:12)
--- NOTE | 2016-11-25 10:10 | Nephrology Progress Note ---
Date of Encounter: 11/25/16 Time of Encounter: 10:09 - Assessment and Plan (1) CKD (chronic kidney disease), stage V Current Visit: Yes Status: Chronic Recommending HD but she voiced not wanting to start. As discussed with Dr. Cox, I agree with consideration of transfer to the Jehova Witness unit at [facility]. Hgb low but already provided IV iron. Would transfuse but she is a Spiritism. Meanwhile continue to follow a renal protective strategy. Discussed with the hospitalist. Thank you (2) Anemia in chronic kidney disease (CKD) Current Visit: Yes Status: Chronic See above Qualifiers: Chronic kidney disease stage: stage 5, not on chronic dialysis Qualified Code(s): N18.5 - Chronic kidney disease, stage 5; D63.1 - Anemia in chronic kidney disease (3) Hyperkalemia Current Visit: Yes Status: Acute See above (4) Refusal of blood transfusions as patient is Moravian Current Visit: Yes Status: Chronic See above (5) Weakness of both lower extremities Current Visit: Yes Status: Acute Likely d/t her advanced anemia and renal failure. (6) HTN (hypertension) Current Visit: Yes Status: Chronic Elevated BPs likely from her advanced CKD. Qualifiers: Hypertension type: essential hypertension Qualified Code(s): I10 - Essential (primary) hypertension (7) Metabolic acidosis Current Visit: Yes Status: Acute Likely d/t her advanced CKD. Subjective Principal diagnosis: Advanced CKD and Anemia Interval history: Pt was s/e, and she reported ongoing fatigue. She voiced that she was not interested in starting dialysis. She voiced wanting to consider transferring to the [facility]. Objective - Vital Signs Vital signs: Vital Signs Temp Pulse Resp BP Pulse Ox 11/25/16 08:24 98 11/25/16 07:01 98.4 F 69 15 179/66 98 11/25/16 04:22 98.5 F 65 18 186/63 99 11/25/16 00:00 98.5 F 66 18 173/61 97 11/24/16 19:00 98.1 F 62 14 150/53 98 11/24/16 17:03 97.9 F 62 16 133/52 97 Intake and Output 11/24/16 11/25/16 11/25/16 23:59 07:59 15:59 Intake Total 360 / 360 Balance 360 / 360 Intake: Oral 360 / 360 Other: Meal Breakfast Percent of Meal Consumed 95% # Urine Diapers 1 Blood Glucose* 133 89 - General Appearance Exam: General appearance: well-developed, well-nourished, chronically ill, fatigue, frail EENT: ATNC, PERRL, mucous membranes moist Neck: supple Respiratory: clear Cardiology: edema (only trace ankle edema), normal S1, normal S2 Gastrointestinal: normoactive bowel sounds, no tenderness, no guarding Integumentary: no rash, warm and dry Neurologic: no focal deficit, no asterixis, alert and oriented x3 Musculoskeletal: no deformities, no erythema Psychiatric: mood/affect appropriate, cooperative - Lab 11/25/16 04:37 11/25/16 04:37 Most recent lab results Calcium 7.7 mg/dL (8.6-10.8) L 11/25/16 04:37 Phosphorus 4.4 mg/dL (2.3-4.7) 11/24/16 03:57 Magnesium 1.6 mg/dL (1.6-2.6) 11/24/16 03:57 - VTE Documentation of Mechanical Device: Intermittent pneumatic compression device Consult Discharge Plan - Plan Referrals: Abelino Dunlap MD [Primary Care Provider] -
--- NOTE | 2016-11-25 10:21 | Electrocardiograph Report ---
[address] [address] Test Date: 2016-11-23 Pat Name: Lita Park Department: 102 Room: 2A Gender: F Physician Office Specialist: Genesis : 1945 Requested By: Matthew Machuca Order Number: [id number] Reading MD: Lito Cannon MD Measurements Intervals [place] Rate: 64 P: 63 CT: 233 QRS: -66 QRSD: 154 T: 129 QT: 441 QTc: 450 Interpretive Statements SINUS RHYTHM WITH FIRST DEGREE AV BLOCK INTRAVENTRICULAR CONDUCTION DELAY Electronically Signed On 11-25-2016 10:19:23 EDT by Lito Cannon MD
--- NOTE | 2016-11-25 16:00 | Internal Med Progress Note ---
Date of Encounter: 11/25/16 Time of Encounter: 15:55 - Assessment and plan (1) CKD (chronic kidney disease), stage V Current Visit: Yes Status: Chronic Assessment and plan: Admitted with stage V chronic kidney disease. Worsening creatinine along with BUN. Denies nausea, no pericardial rub, no epigastric pain, potassium is 4.7, bicarbonate is 17. Plan: Will follow the recommendations from nephrology. 11/25/2016. Noted that patient's creatinine is worse as compared to yesterday. Blind Installer on the board. Blind Installer recommended initiation of hemodialysis. Patient is not keen to start hemodialysis yet. patient feels that she will recover from this illness. Patient would like to speak with her family and come to conclusion. Discussed at length with the patient regarding option of going to [facility] in [facility]. At [facility], there is a special unit for Jehova's witness. Explained patient at length that she will be benefited from the services. Patient will discuss this with her family and will let me know. Yesterday a nurse practitioner who worked in the above unit came to explained patient at length benefits of getting treatment there. Patient is found in her bili is and does not want blood transfusion/hemodialysis Patient claims that previously her hemoglobin was less than 4 and she survived through it, so this time she should make it. We will respect patient's wishes. Case discussed with clinical fellow, Dr Davila and he agreed with above plan. (2) Anemia in chronic kidney disease (CKD) Current Visit: Yes Status: Chronic Assessment and plan: Chronically severe anemia. Iron deficiency also contribute in above Not a candidate for EPO as she has elevated blood pressure. Patient follows a Baptist and refuses blood transfusion Qualifiers: Chronic kidney disease stage: stage 5, not on chronic dialysis Qualified Code(s): N18.5 - Chronic kidney disease, stage 5; D63.1 - Anemia in chronic kidney disease (3) Refusal of blood transfusions as patient is Baptist Current Visit: Yes Status: Chronic Assessment and plan: See above (4) HTN (hypertension) Current Visit: Yes Status: Chronic Assessment and plan: We will follow the nephrology recommendation Qualifiers: Hypertension type: essential hypertension Qualified Code(s): I10 - Essential (primary) hypertension - Subjective Interval history: Patient seen and examined. Chart reviewed. Patient is comfortably lying in a bed. Patient denies chest pain, shortness of breath, abdominal pain, nausea, vomiting and diarrhea. 11/25/2016. Patient seen and examined with clinical fellow. Chart reviewed. Patient is comfortably lying in the bed and speaks complete sentences. Patient denies at this point chest pain, short of breath, nausea, vomiting, diarrhea and dizziness. - Constitutional Vitals: Temp Pulse Resp BP Pulse Ox 98.1 F 64 16 108/49 94 11/25/16 15:09 11/25/16 15:09 11/25/16 15:09 11/25/16 15:09 11/25/16 15:09 General appearance: Present: cooperative, A&O X 3, pleasant, no acute distress, obese, answers questions appropriately - Head Head exam: Present: atraumatic, normocephalic - Eye Eye exam: Present: PERRL, conjuntiva pink, sclera anicteric Pupils: Present: PERRL - Neck Neck exam general surgery: Present: supple, trachea midline. Absent: lymphadenopathy - Respiratory Respiratory exam: Present: CTAB. Absent: accessory muscle use, rales, rhonchi, wheezes - Cardiovascular Cardiovascular exam: Present: RRR, +S1, +S2. Absent: diastolic murmur, gallop, rubs, systolic murmur - GI/Abdominal GI/Abdominal exam: Present: normal bowel sounds, soft, no peritoneal signs. Absent: distended, tenderness - Extremities Exam Extremities exam: Present: warm, radial pulses palpable and symmetrical. Absent : calf tenderness, cyanotic, pedal edema - Neurological Exam Neurological exam: Present: CN II-XII intact, oriented X3, no focal deficits. Absent: pronater drift, facial droop, speech deficit - Skin Skin exam: Present: dry, intact Internal Medicine: Result - Labs CBC & Chem 7: 11/25/16 04:37 11/25/16 04:37 Labs: Short CBC 11/25/16 Range/Units 04:37 WBC 6.3 (4.3-11.1) K/mcL Hgb 5.3 L* (11.5-15.4) g/dL Hct 17.1 L (35.3-44.9) % Plt Count 168 (140-400) K/mcL Neutrophils # 4.1 (1.6-8.9) K/mcL BMP 11/25/16 04:37 Sodium 140 Potassium 4.1 Chloride 116 H Carbon Dioxide 16 L BUN 70 H Creatinine 6.60 H Glucose 92 Calcium 7.7 L Liver Function 11/25/16 Range/Units 04:37 Total Bilirubin < 0.3 (0.2-1.2) mg/dL AST 10 (5-34) Units/L ALT < 6 (0-55) Units/L Alkaline Phosphatase 42 (38-126) Units/L Albumin 2.0 L (3.5-5.0) g/dL - ABG Interpretation ABG results: PT/INR, D-dimer PT 11.5 Seconds (9.4-12.1) 11/24/16 03:57 - VTE Documentation of Mechanical Device: Intermittent pneumatic compression device Consult Discharge Plan - Plan Referrals: Fabi,Abelino Wisdom MD [Primary Care Provider] -
[2016-11-26 04:03] LABS: Basophils % 0.1 %; Lymphocytes # 1.8 K/mcL (0.6-4.6); Lymphocytes % 26.7 %; Mean Corpuscular Volume 98.8 fL (83.0-100.0)
[2016-11-26 04:18] LABS: Eosinophils # 0.2 K/mcL (0.0-0.6); Eosinophils % 3.6 %; Hematocrit 16.6 % (35.3-44.9); Immature Granulocytes % 1.5 % (0-4); Mean Corpuscular HGB Conc 31.3 g/dL (31.6-35.5); Monocytes # 0.4 K/mcL (0.0-1.3); Monocytes % 6.3 %; Neutrophils # 4.1 K/mcL (1.6-8.9); Platelet Count 174 K/mcL (140-400); Red Blood Count 1.68 M/mcL (3.82-4.97); Red Cell Distribution Width 14.8 % (11.5-14.5); Segmented Neutrophils % 61.8 %
[2016-11-26 04:19] LABS: Albumin/Globulin Ratio 0.8 (1.1-2.2); Alkaline Phosphatase 45 Units/L (38-126); Aspartate Amino Transferase 10 Units/L (5-34); BUN/Creatinine Ratio 11 (6-26); Blood Urea Nitrogen 69 mg/dL (7-20); Calcium 7.8 mg/dL (8.6-10.8); Carbon Dioxide 17 mEq/L (19-29); Chloride 112 mEq/L (98-109); Globulin 2.4 g/dL (2.4-3.5); Glucose 92 mg/dL (70-99); Osmolality,Calculated 306 (280-300); Sodium 138 mEq/L (136-145); Total Protein 4.4 g/dL (6.0-8.3); eGFR For African Americans 8 (> 60); eGFR For Non-African Americans 6 (> 60)
[2016-11-26 04:20] LABS: Alanine Aminotransferase < 6 Units/L (0-55); Bilirubin,Total < 0.3 mg/dL (0.2-1.2)
[2016-11-26 04:38] LABS: Hemoglobin 5.2 g/dL (11.5-15.4)
[2016-11-26 05:28] LABS: Hypochromasia Present (Not Present); Platelet Estimate Normal (Normal); Polychromasia 1+ (Not Present)
[2016-11-26] MEDS: hydrALAZINE 25 MG TABLET PO SCH ×3 (08:17→20:32)
[2016-11-26] MEDS: NIFEdipine XL (24 HR) 30 MG TAB.ER.24 PO SCH (08:18)
[2016-11-26] MEDS: cloNIDine HCl 0.1 MG TABLET PO SCH ×3 (08:18→20:32)
[2016-11-26] MEDS: Pantoprazole 40 MG VIAL IVP SCH (08:18)
[2016-11-26] MEDS: Folic Acid 1 MG TABLET PO SCH (08:18)
[2016-11-26] MEDS: Isosorbide MONOnitrate (24 HR) 60 MG TAB.ER.24H PO SCH (08:18)
[2016-11-26] MEDS: Insulin LISPRO 300 UNITS/3 ML VIAL SQ SCH ×4 (08:27→22:40)
--- NOTE | 2016-11-26 11:15 | Nephrology Progress Note ---
Date of Encounter: 11/26/16 Time of Encounter: 09:45 - Assessment and Plan (1) CKD (chronic kidney disease), stage V Status: Chronic She requested several times to meet with Dr. Beltre, though I explained to the pt that she is not on-call today and is in the clinic. We discussed options for anemia of chronic disease including the Feraheme, which she already received the 510mg on Saturday night; and how with elevated BPs that REHAN may increase the risk for SE potential, which was reviewed in detail. Since her BPs today are not as high as when she presented, the potential benefits of Aranesp (i.e., to help endogenously produce more blood without transfusion), likely outweigh the risks of an EPO related medication. I counseled the pt about renal failure and the symptoms that suggest a more urgency for dialysis. I still recommend dialysis to start, but she said she has decided against dialysis until she can get a second opinion with another php software engineer. She said her family member had a friend who saw Dr. Beltre in the past, so the pt is requesting to see Dr. Beltre. The floor nurse was present for all this discussion. I also discussed options with the hospitalist team. I'll ask Dr. Beltre if / when she may be free to see the pt, either as an outpt in the clinic or sooner for a curtsey visit in the hospital. Meanwhile continue to follow a renal protective strategy. Thank you (2) Anemia in chronic kidney disease (CKD) Status: Chronic See above Qualifiers: Chronic kidney disease stage: stage 5, not on chronic dialysis Qualified Code(s): N18.5 - Chronic kidney disease, stage 5; D63.1 - Anemia in chronic kidney disease (3) Hyperkalemia Status: Acute See above (4) Refusal of blood transfusions as patient is Bahai Status: Chronic See above (5) Weakness of both lower extremities Status: Acute Likely d/t her advanced anemia and renal failure. (6) HTN (hypertension) Status: Chronic Elevated BPs likely from her advanced CKD. Qualifiers: Hypertension type: essential hypertension Qualified Code(s): I10 - Essential (primary) hypertension (7) Metabolic acidosis Status: Acute Likely d/t her advanced CKD. Subjective Principal diagnosis: Advanced CKD and Anemia Interval history: Pt was s/e, and she reported ongoing fatigue. She voiced that she was not interested in starting dialysis. She voiced wanting to see Dr. Beltre for follow- up. Objective - Vital Signs Vital signs: Vital Signs Temp Pulse Resp BP Pulse Ox 11/26/16 10:43 97.9 F 67 19 95 11/26/16 07:42 98.0 F 66 18 204/60 99 11/26/16 05:00 98.3 F 63 18 178/58 98 11/25/16 23:58 98.5 F 66 16 138/62 96 11/25/16 20:39 98.4 F 64 16 134/56 96 11/25/16 16:46 98.1 F 62 16 112/44 96 11/25/16 15:09 98.1 F 64 16 108/49 94 11/25/16 11:41 98.4 F 68 13 132/54 98 Intake and Output 11/25/16 11/26/16 11/26/16 23:59 07:59 15:59 Intake Total 240 / 240 Balance 240 / 240 Intake: Oral 240 / 240 Other: Meal Dinner Percent of Meal Consumed 100% # Urine Diapers 1 Weight 81.3 kg Blood Glucose* 141 93 123 Patient Weight 11/26/16 23:59 Weight 81.3 kg - General Appearance Exam: General appearance: well-developed, well-nourished, chronically ill, fatigue, frail EENT: ATNC, PERRL, mucous membranes moist Neck: supple Respiratory: clear Cardiology: edema (only trace ankle edema), normal S1, normal S2 Gastrointestinal: normoactive bowel sounds, no tenderness, no guarding Integumentary: no rash, warm and dry Neurologic: no focal deficit, no asterixis, alert and oriented x3 Musculoskeletal: no deformities, no erythema Psychiatric: mood/affect appropriate, cooperative - Lab 11/26/16 03:46 11/26/16 03:46 Most recent lab results Calcium 7.8 mg/dL (8.6-10.8) L 11/26/16 03:46 Phosphorus 4.4 mg/dL (2.3-4.7) 11/24/16 03:57 Magnesium 1.6 mg/dL (1.6-2.6) 11/24/16 03:57 - VTE Documentation of Mechanical Device: Intermittent pneumatic compression device Consult Discharge Plan - Plan Additional Instructions: Continue to take medications as prescribed Follow-up with you primary care provider Return if your symptoms worsen or you decide to pursue further treatment Referrals: Abelino Dunlap MD [Primary Care Provider] - Eren Reinoso MD [Partnered Physician] -
--- NOTE | 2016-11-26 16:45 | Internal Med Progress Note ---
Date of Encounter: 11/26/16 Time of Encounter: 16:43 - Assessment and plan (1) CKD (chronic kidney disease), stage V Current Visit: Yes Status: Chronic Assessment and plan: Admitted with stage V chronic kidney disease. Worsening creatinine along with BUN. Denies nausea, no pericardial rub, no epigastric pain, potassium is 4.7, bicarbonate is 17. Plan: Will follow the recommendations from nephrology. 11/25/2016. Noted that patient's creatinine is worse as compared to yesterday. Fork Truck Driver on the board. Fork Truck Driver recommended initiation of hemodialysis. Patient is not keen to start hemodialysis yet. patient feels that she will recover from this illness. Patient would like to speak with her family and come to conclusion. Discussed at length with the patient regarding option of going to [facility] in [facility]. At [facility], there is a special unit for Jehova's witness. Explained patient at length that she will be benefited from the services. Patient will discuss this with her family and will let me know. Yesterday a nurse practitioner who worked in the above unit came to explained patient at length benefits of getting treatment there. Patient is found in her bili is and does not want blood transfusion/hemodialysis Patient claims that previously her hemoglobin was less than 4 and she survived through it, so this time she should make it. We will respect patient's wishes. Case discussed with trim die maker, Dr Davila and he agreed with above plan. 11/26/2016 Patient is comfortably lying in the bed. Patient claims that she preferred not to go to [facility] for any further treatment. Noted that nephrology had a long discussion with the patient and his morning. Plan: We will follow the recommendations from nephrology. If the trim die maker and decided not then we will discharge patient/we will send her to ECF if she qualifies. (2) Anemia in chronic kidney disease (CKD) Current Visit: Yes Status: Chronic Assessment and plan: Chronically severe anemia. Iron deficiency also contribute in above Not a candidate for EPO as she has elevated blood pressure. Patient follows a Rastafarian and refuses blood transfusion Qualifiers: Chronic kidney disease stage: stage 5, not on chronic dialysis Qualified Code(s): N18.5 - Chronic kidney disease, stage 5; D63.1 - Anemia in chronic kidney disease (3) Refusal of blood transfusions as patient is Rastafarian Current Visit: Yes Status: Chronic Assessment and plan: See above (4) HTN (hypertension) Current Visit: Yes Status: Chronic Assessment and plan: We will follow the nephrology recommendation Qualifiers: Hypertension type: essential hypertension Qualified Code(s): I10 - Essential (primary) hypertension - Subjective Interval history: Patient seen and examined. Chart reviewed. Patient is comfortably lying in a bed. Patient denies chest pain, shortness of breath, abdominal pain, nausea, vomiting and diarrhea. 11/25/2016. Patient seen and examined with trim die maker. Chart reviewed. Patient is comfortably lying in the bed and speaks complete sentences. Patient denies at this point chest pain, short of breath, nausea, vomiting, diarrhea and dizziness. 11/26/2016 Patient seen and examined. Chart reviewed. Patient is comfortably lying in her bed. Patient enjoys watching television. She denies chest pain, shortness of breath, abdominal pain, nausea, vomiting, diarrhea and dizziness. - Constitutional Vitals: Temp Pulse Resp BP Pulse Ox 97.9 F 63 17 116/62 97 11/26/16 16:23 11/26/16 16:23 11/26/16 16:23 11/26/16 16:23 11/26/16 16:23 General appearance: Present: cooperative, A&O X 3, pleasant, no acute distress, obese, answers questions appropriately - Head Head exam: Present: atraumatic, normocephalic - Eye Eye exam: Present: PERRL, conjuntiva pink, sclera anicteric Pupils: Present: PERRL - Neck Neck exam general surgery: Present: supple, trachea midline. Absent: lymphadenopathy - Respiratory Respiratory exam: Present: CTAB. Absent: accessory muscle use, rales, rhonchi, wheezes - Cardiovascular Cardiovascular exam: Present: RRR, +S1, +S2. Absent: diastolic murmur, gallop, rubs, systolic murmur - GI/Abdominal GI/Abdominal exam: Present: normal bowel sounds, soft, no peritoneal signs. Absent: distended, tenderness - Extremities Exam Extremities exam: Present: warm, radial pulses palpable and symmetrical. Absent : calf tenderness, cyanotic, pedal edema - Neurological Exam Neurological exam: Present: CN II-XII intact, oriented X3, no focal deficits. Absent: pronater drift, facial droop, speech deficit - Skin Skin exam: Present: dry, intact Internal Medicine: Result - Labs CBC & Chem 7: 11/26/16 03:46 11/26/16 03:46 Labs: Short CBC 11/26/16 Range/Units 03:46 WBC 6.7 (4.3-11.1) K/mcL Hgb 5.2 L* (11.5-15.4) g/dL Hct 16.6 L (35.3-44.9) % Plt Count 174 (140-400) K/mcL Neutrophils # 4.1 (1.6-8.9) K/mcL BMP 11/26/16 03:46 Sodium 138 Potassium 4.0 Chloride 112 H Carbon Dioxide 17 L BUN 69 H Creatinine 6.50 H Glucose 92 Calcium 7.8 L Liver Function 11/26/16 Range/Units 03:46 Total Bilirubin < 0.3 (0.2-1.2) mg/dL AST 10 (5-34) Units/L ALT < 6 (0-55) Units/L Alkaline Phosphatase 45 (38-126) Units/L Albumin 2.0 L (3.5-5.0) g/dL - ABG Interpretation ABG results: PT/INR, D-dimer PT 11.5 Seconds (9.4-12.1) 11/24/16 03:57 - VTE Documentation of Mechanical Device: Intermittent pneumatic compression device Consult Discharge Plan - Plan Referrals: Abelino Dunlap MD [Primary Care Provider] -
[2016-11-26] MEDS: Furosemide 20 MG TABLET PO SCH (17:59)
[2016-11-27] MEDS: Insulin LISPRO 300 UNITS/3 ML VIAL SQ SCH ×3 (08:08→16:08)
[2016-11-27] MEDS: hydrALAZINE 25 MG TABLET PO SCH ×2 (08:16→14:16)
[2016-11-27] MEDS: Folic Acid 1 MG TABLET PO SCH (08:16)
[2016-11-27] MEDS: NIFEdipine XL (24 HR) 30 MG TAB.ER.24 PO SCH (08:16)
[2016-11-27] MEDS: cloNIDine HCl 0.1 MG TABLET PO SCH ×2 (08:16→14:16)
[2016-11-27] MEDS: Pantoprazole 40 MG VIAL IVP SCH (08:17)
[2016-11-27] MEDS: Isosorbide MONOnitrate (24 HR) 60 MG TAB.ER.24H PO SCH (08:17)
--- NOTE | 2016-11-27 10:40 | Nephrology Progress Note ---
Date of Encounter: 11/27/16 Time of Encounter: 10:24 - Assessment and Plan (1) CKD (chronic kidney disease), stage V Status: Chronic The pt continues to refuse dialysis. I was able to help arrange an opportunity for Dr. Beltre to meet the pt, and the pt would like to follow-up with her. Expect to see severe anemia and elevated SCr. The pt voiced understanding the risks as spelled out before of uremia and renal failure. There is no eCW chart yet for the patient, so I've asked and written down on paper the pt's info to be contacted by our clinic to help arrange nephrology follow-up. I also offered to arrange for an outpt referral for a [facility], since she will clearly need dialysis. She also declined this option. Meanwhile continue to follow a renal protective strategy. Thank you (2) Anemia in chronic kidney disease (CKD) Status: Chronic See above Qualifiers: Chronic kidney disease stage: stage 5, not on chronic dialysis Qualified Code(s): N18.5 - Chronic kidney disease, stage 5; D63.1 - Anemia in chronic kidney disease (3) Hyperkalemia Status: Acute See above (4) Refusal of blood transfusions as patient is Worship Status: Chronic See above (5) Weakness of both lower extremities Status: Acute Likely d/t her advanced anemia and renal failure. (6) HTN (hypertension) Status: Chronic Elevated BPs likely from her advanced CKD. Qualifiers: Hypertension type: essential hypertension Qualified Code(s): I10 - Essential (primary) hypertension (7) Metabolic acidosis Status: Acute Likely d/t her advanced CKD. Subjective Principal diagnosis: Advanced CKD and Anemia Interval history: Pt was s/e, and she reported ongoing fatigue. She voiced that she was not interested in starting dialysis. She voiced understanding the risks of not starting HD and the floor RN was present as we discussed the risks of declining HD initiation at this time. Objective - Vital Signs Vital signs: Vital Signs Temp Pulse Resp BP Pulse Ox 11/27/16 06:44 98.3 F 66 18 162/57 98 11/27/16 03:51 98.1 F 65 17 117/50 97 11/27/16 00:39 98.3 F 68 18 110/50 97 11/26/16 21:02 97.8 F 61 17 110/55 97 11/26/16 16:23 97.9 F 63 17 116/62 97 11/26/16 13:56 130/48 11/26/16 10:43 97.9 F 67 19 130/48 95 Intake and Output 11/26/16 11/27/16 11/27/16 23:59 07:59 15:59 Intake Total 100 / 100 240 / 240 240 / 240 Balance 100 / 100 240 / 240 240 / 240 Intake: Oral 100 / 100 240 / 240 240 / 240 Other: Meal Dinner Breakfast Percent of Meal Consumed 50% 100% # Voids 1 # Urine Diapers 1 1 Weight 81 kg Blood Glucose* 120 85 Patient Weight 11/27/16 23:59 Weight 81 kg - General Appearance Exam: General appearance: well-developed, well-nourished, chronically ill, fatigue, frail EENT: ATNC, PERRL, mucous membranes moist Neck: supple Respiratory: clear Cardiology: edema (only trace ankle edema), normal S1, normal S2 Gastrointestinal: normoactive bowel sounds, no tenderness, no guarding Integumentary: no rash, warm and dry Neurologic: no focal deficit, no asterixis, alert and oriented x3 Musculoskeletal: no deformities, no erythema Psychiatric: mood/affect appropriate, cooperative - Lab 11/26/16 03:46 11/26/16 03:46 Most recent lab results Calcium 7.8 mg/dL (8.6-10.8) L 11/26/16 03:46 Phosphorus 4.4 mg/dL (2.3-4.7) 11/24/16 03:57 Magnesium 1.6 mg/dL (1.6-2.6) 11/24/16 03:57 - VTE Documentation of Mechanical Device: Intermittent pneumatic compression device Consult Discharge Plan - Plan Additional Instructions: Continue to take medications as prescribed Follow-up with you primary care provider Return if your symptoms worsen or you decide to pursue further treatment Referrals: Abelino Dunlap MD [Primary Care Provider] - Eren Reinoso MD [Partnered Physician] -
[2016-11-27] MEDS: Furosemide 40 MG TABLET PO SCH (14:16)
--- NOTE | 2016-11-27 14:37 | Discharge Summary ---
Addendum entered and electronically signed by Efrain Dubose DO 11/27/16 15: 51: Patient has a history of Chronic Diastolic Heart Failure - no evidence of acute exacerbation Original Note: <fErain Dubose - Last Filed: 11/27/16 14:37> Date of Encounter: 11/27/16 Time of Encounter: 14:36 - Discharge Diagnosis (1) CKD (chronic kidney disease), stage V Priority: Primary Status: Chronic (2) Anemia in chronic kidney disease (CKD) Priority: Secondary Status: Chronic Qualifiers: Chronic kidney disease stage: stage 5, not on chronic dialysis Qualified Code(s): N18.5 - Chronic kidney disease, stage 5; D63.1 - Anemia in chronic kidney disease (3) Refusal of blood transfusions as patient is Quaker Priority: Secondary Status: Chronic (4) HTN (hypertension) Priority: Secondary Status: Chronic Qualifiers: Hypertension type: essential hypertension Qualified Code(s): I10 - Essential (primary) hypertension - Discharge Medications Home Medications: Aspirin [Lo-Dose Aspirin EC] 81 mg PO DAILY 11/23/16 [History] Carvedilol [Coreg] 25 mg PO BID 11/23/16 [History] CloNIDine HCl [Kapvay] 0.1 mg PO TID 11/23/16 [History] Ferrous Sulfate [Iron] 325 mg PO DAILY 11/23/16 [History] Folic Acid 1 mg PO DAILY 11/23/16 [History] Furosemide [Lasix] 20 mg PO MOWEFR 11/23/16 [History] Furosemide [Lasix] 40 mg PO TUTHSA 11/23/16 [History] Hydralazine HCl 100 mg PO TID 11/23/16 [History] Isosorbide MONOnitrate [Isosorbide Mononitrate ER] 120 mg PO DAILY 11/23/16 [ History] NIFEdipine [Nifedipine ER] 90 mg PO DAILY 11/23/16 [History] Allergies/Adverse Reactions: 3 Allergy/AdvReac Type Severity Reaction Status Date / Time No Known Allergies Allergy Verified 11/23/16 12:58 Date of admission: 11/24/16 14:22 Primary care physician: Abelino Dunlap MD Discharging clinician: Efrain Dubose - Patient Status Disposition: Transfer SNF Condition: Fair Functional capacity at discharge: independent ambulation Overall status at discharge: patient is progressing back to baseline - Discharge Instructions Follow Up With: Abelino Dunlap MD [Primary Care Provider] - Eren Reinoso MD [Partnered Physician] - Additional Instructions: Continue to take medications as prescribed Follow-up with you primary care provider Return if your symptoms worsen or you decide to pursue further treatment - Diet and Activity Activity: as per physical therapy, increase activity as tolerated Diet: advance to your usual diet Interval History: Patient seen and examined. She is sitting up in bed. She reports she is doing well with no complaints today. Denies chest pain, dyspnea, cough, N/V/D, dysuria , or leg pain/swelling. Hospital course: Ms. Park is a 71 year old female with PMH of CKD stage 4, DM, HTN, CHF, and chronic anemia presented to the ED for follow-up of abnormal lab values. Her Hgb on admission was 6.1. She is not a candidate for transfusion based on her episcopalian beliefs (Jehova's Witness). She had a GFR of 6 on admission and Cr of 6.45. Nephrology recommended CORONARY CARE UNIT NURSE but she did not want to pursue this option. She was not a candidate for EPO due to her elevated blood pressure. She was offered transfer to [facility], where there is a special unit for Jehova's witness, but she was not interested in this. She feels that she will be able to recover on her own. She is medically cleared for discharge, pending placement to ECF if qualifying and discussing further with her family. - Time Spent with Patient Total time spent providing and/or coordinating discharge services: Greater than 30 minutes - Constitutional Vitals: Temp Pulse Resp BP Pulse Ox 98.6 F 66 18 161/55 97 11/27/16 10:55 11/27/16 10:55 11/27/16 10:55 11/27/16 10:55 11/27/16 10:55 General appearance: Present: cooperative, A&O X 3, pleasant, no acute distress, obese, answers questions appropriately - Head Head exam: Present: atraumatic, normocephalic - Eye Eye exam: Present: conjuntiva pink, sclera anicteric - ENT ENT exam: Present: mucous membranes moist - Respiratory Respiratory exam: Present: CTAB. Absent: rales, rhonchi, wheezes - Cardiovascular Cardiovascular exam: Present: RRR, +S1, +S2, systolic murmur. Absent: diastolic murmur - GI/Abdominal GI/Abdominal exam: Present: normal bowel sounds, soft. Absent: distended, rigid , tenderness - Extremities Exam Extremities exam: Present: pedal edema, warm. Absent: tenderness - Neurological Exam Neurological exam: Present: alert, CN II-XII intact, oriented X3, no focal deficits - Skin Skin exam: Present: dry, intact - VTE Documentation of Mechanical Device: Intermittent pneumatic compression device <Juan C Cox P - Last Filed: 11/27/16 18:22> Date of Encounter: 11/27/16 - Discharge Diagnosis (1) CKD (chronic kidney disease), stage V Status: Chronic (2) Anemia in chronic kidney disease (CKD) Status: Chronic Qualifiers: Chronic kidney disease stage: stage 5, not on chronic dialysis Qualified Code(s): N18.5 - Chronic kidney disease, stage 5; D63.1 - Anemia in chronic kidney disease (3) Refusal of blood transfusions as patient is Quaker Status: Chronic (4) HTN (hypertension) Status: Chronic Qualifiers: Hypertension type: essential hypertension Qualified Code(s): I10 - Essential (primary) hypertension Date of admission: 11/24/16 14:22 Primary care physician: Abelino Dunlap MD Hospital course: Ms. Park is a 71 year old female - Time Spent with Patient Total time spent providing and/or coordinating discharge services: - Constitutional Vitals: Temp Pulse Resp BP Pulse Ox 98.4 F 61 16 102/40 96 11/27/16 15:52 11/27/16 15:52 11/27/16 15:52 11/27/16 15:52 11/27/16 15:52 - Attending Attestation I examined this patient and my medical decision-making was reviewed with the Resident Physician. I agree with the documented findings, disposition and treatment plan as described except to the extent set forth below.
--- NOTE | 2016-11-27 15:04 | Physician Discharge Referral ---
<Efrain Dubose R - Last Filed: 11/27/16 15:01> ExtendedCare Referral Info Transfer To: [facility] Provider in Charge after Transfer: PCP, Other (Neon Installer) Institutional Level of Care: Skilled - Diagnosis (1) CKD (chronic kidney disease), stage V Priority: Primary Status: Chronic (2) Anemia in chronic kidney disease (CKD) Priority: Secondary Status: Chronic (3) Refusal of blood transfusions as patient is Advent Priority: Secondary Status: Chronic (4) HTN (hypertension) Priority: Secondary Status: Chronic - Transfer Medications Home Medications: Aspirin [Lo-Dose Aspirin EC] 81 mg PO DAILY 11/23/16 [History] Carvedilol [Coreg] 25 mg PO BID 11/23/16 [History] CloNIDine HCl [Kapvay] 0.1 mg PO TID 11/23/16 [History] Ferrous Sulfate [Iron] 325 mg PO DAILY 11/23/16 [History] Folic Acid 1 mg PO DAILY 11/23/16 [History] Furosemide [Lasix] 20 mg PO MOWEFR 11/23/16 [History] Furosemide [Lasix] 40 mg PO TUTHSA 11/23/16 [History] Hydralazine HCl 100 mg PO TID 11/23/16 [History] Isosorbide MONOnitrate [Isosorbide Mononitrate ER] 120 mg PO DAILY 11/23/16 [ History] NIFEdipine [Nifedipine ER] 90 mg PO DAILY 11/23/16 [History] Allergies/Adverse Reactions: 3 Allergy/AdvReac Type Severity Reaction Status Date / Time No Known Allergies Allergy Verified 11/23/16 12:58 - Respiratory Orders Smoking Cessation: Smoking cessation has been advised. For more information, call the [place] Tobacco Quit Line at 4-548-OTOJ-NOW. - Advance Directives Code Status: Full Code - Mobility Orders Ambulate (with assistance) - Rehabiliation Orders Rehab Potential: Fair Rehab Orders: Evaluation for Physical Therapy, Evaluation for Occupational Therapy - Diet Orders Regular CERTIFICATION: I certify that the transfer of the above named patient to an Extended Care Facility is necessary for the continuing treatment of the diagnosis listed. The above information is true and accurate reflection of patient's current condition. Confidential - Redisclosure prohibited without a patient's written consent. <Juan C Cox P - Last Filed: 11/27/16 18:23> - Diagnosis (1) CKD (chronic kidney disease), stage V Status: Chronic (2) Anemia in chronic kidney disease (CKD) Status: Chronic (3) Refusal of blood transfusions as patient is Advent Status: Chronic (4) HTN (hypertension) Status: Chronic - Respiratory Orders Smoking Cessation: Smoking cessation has been advised. For more information, call the [place] Tobacco Quit Line at 3-301-BTWH-NOW. CERTIFICATION: I certify that the transfer of the above named patient to an Extended Care Facility is necessary for the continuing treatment of the diagnosis listed. The above information is true and accurate reflection of patient's current condition. Confidential - Redisclosure prohibited without a patient's written consent.
[2016-11-27 15:55] VITALS: BP 102/40
== END 2016-11-27 18:25 | DRG 292 ==
LOC: EMEROO 12:37 → 2ANU 12:37
PROVIDERS: ADMIT Internal Medicine; ATTEND Internal Medicine

== ENCOUNTER 2017-03-18 11:03 | Inpatient (IN) ==
[2017-03-18 11:53] LABS: Basophils % 0.2 %; Eosinophils # 0.1 K/mcL (0.0-0.6); Eosinophils % 1.2 %; Hematocrit 23.7 % (35.3-44.9); Immature Granulocytes % 0.6 % (0-4); Lymphocytes # 1.4 K/mcL (0.6-4.6); Lymphocytes % 16.3 %; Mean Corpuscular HGB Conc 31.2 g/dL (31.6-35.5); Mean Corpuscular Hemoglobin 30.6 pg (28.0-33.3); Mean Corpuscular Volume 97.9 fL (83.0-100.0); Mean Platelet Volume 9.8 fL (9.4-12.4); Monocytes # 0.2 K/mcL (0.0-1.3); Monocytes % 2.8 %; Neutrophils # 6.5 K/mcL (1.6-8.9); Platelet Count 235 K/mcL (140-400); Red Blood Count 2.42 M/mcL (3.82-4.97); Red Cell Distribution Width 16.1 % (11.5-14.5); Segmented Neutrophils % 78.9 %
[2017-03-18 12:10] LABS: Albumin 2.3 g/dL (3.5-5.0); Albumin/Globulin Ratio 0.7 (1.1-2.2); Bilirubin,Direct 0.2 mg/dL (0.0-0.5); Bilirubin,Indirect 0.1 mg/dL (0.0-1.2); Bilirubin,Total 0.3 mg/dL (0.2-1.2); Calcium 8.6 mg/dL (8.6-10.8); Globulin 3.5 g/dL (2.4-3.5); Potassium 6.2 mEq/L (3.5-4.5); Total Protein 5.8 g/dL (6.0-8.3)
[2017-03-18 12:13] LABS: Hemoglobin 7.4 g/dL (11.5-15.4)
--- NOTE | 2017-03-18 12:18 | Emergency Department Note ---
Disposition Clinical Impression: Refusal of blood transfusions as patient is Zoroastrian, Sacral decubitus ulcer, stage II, Hyperkalemia Anemia in chronic kidney disease (CKD) Qualifiers: Chronic kidney disease stage: unspecified stage Qualified Code(s): N18.9 - Chronic kidney disease, unspecified Acute on chronic kidney failure Qualifiers: Acute renal failure type: unspecified Chronic kidney disease stage: stage 5, not on chronic dialysis Qualified Code(s): N17.9 - Acute kidney failure, unspecified Disposition: Admitted As Inpatient Condition: Good Referrals: Abelino Dunlap MD [Primary Care Provider] - Forms: Work/School Release, ED Satisfaction Letter Time of Disposition: 14:06 Wound/Laceration HPI - General Chief Complaint: ED Wound/Laceration Stated Complaint: abdominal pain Time Seen by Provider: 03/18/17 11:07 Source: patient, EMS Mode of arrival: EMS Limitations: no limitations Nursing Notes Reviewed: Yes Vital Signs Reviewed: Yes - History of Present Illness HPI Narrative: 71-year-old female history of diabetes presents with complaint of bedsore and abdominal pain. She presents to the ED via EMS. States this morning she is been having some discomfort in her belly that seems to come from her bottom. She is currently being treated for a bedsore located on her tailbone over the past 3 weeks. Her niece helps take care of it. She does not see professional or wound care clinic. She denies any fever, chills or recent illness. Denies any chest pain or shortness of breath. Denies any nausea or vomiting. Denies any difficulty urinating or bloody stool, black tarry stool. She typically lays in bed as she feels weak in the legs which is not new. Denies any recent trauma or fall. History of hysterectomy denies any other abdominal surgeries. Localized the pain in the abdomen states is mostly from her bottom. - Related Data Home Medications Medication Instructions Recorded Confirmed Aspirin [Lo-Dose Aspirin EC] 81 mg PO DAILY 11/23/16 11/23/16 Carvedilol [Coreg] 25 mg PO BID 11/23/16 11/23/16 CloNIDine HCl [Kapvay] 0.1 mg PO TID 11/23/16 11/23/16 Ferrous Sulfate [Iron] 325 mg PO DAILY 11/23/16 11/23/16 Folic Acid 1 mg PO DAILY 11/23/16 11/23/16 Furosemide [Lasix] 20 mg PO MOWEFR 11/23/16 11/23/16 Furosemide [Lasix] 40 mg PO TUTHSA 11/23/16 11/23/16 Hydralazine HCl 100 mg PO TID 11/23/16 11/23/16 Isosorbide MONOnitrate [Isosorbide 120 mg PO DAILY 11/23/16 11/23/16 Mononitrate ER] NIFEdipine [Nifedipine ER] 90 mg PO DAILY 11/23/16 11/23/16 Previous Rx's Medication Instructions Recorded Peg 3350/Na Sulf,Bicarb,Cl/KCl 4,000 ml PO DAILY #1 soln.recon 02/08/17 [Golytely Solution] Allergies Allergy/AdvReac Type Severity Reaction Status Date / Time No Known Allergies Allergy Verified 03/18/17 11:18 All systems ED: reviewed and negative except as stated. Review of Systems: As Per HPI Constitutional: Denies: fever, chills ENT ED: Denies: congestion, dysphagia Cardiovascular: Denies: chest pain, dyspnea on exertion Respiratory: Denies: cough, dyspnea Gastrointestinal: Denies: abdominal pain, nausea, vomiting Genitourinary: Denies: urgency, dysuria Musculoskeletal: Reports: back pain. Denies: neck pain Integumentary: Reports: lesions. Denies: rash, abrasion Neurological: Reports: weakness. Denies: headache Past Medical History - Past Medical History Attestation: Yes The following information was validated with the patient. Source: patient Medical history: Reports: CHF, diabetes, hypertension, renal disease Surgical history: Reports: hysterectomy Psychiatric history: Reports: no psych history - Social History Smoking Status: Former smoker Smokeless Tobacco Status: No Alcohol use: Reports: none Drug use: Reports: none Physical Exam - General Limitations: no limitations General appearance: alert, in no apparent distress - Head Head exam: atraumatic, normocephalic, normal inspection - Eye Eye exam: Present: normal appearance, PERRL, EOMI. Absent: scleral icterus - ENT ENT exam: normal exam, normal oropharynx, mucous membranes dry - Neck Neck exam: Present: normal inspection, full ROM, trachea midline - Chest Chest inspection: Present: normal inspection, symmetric chest wall rise - Respiratory Respiratory exam: Present: normal lung sounds bilaterally - Cardiovascular Cardiovascular exam: Present: regular rate, normal rhythm, normal heart sounds - Abdominal Exam Abdominal exam: Present: soft, Non-Tender, normal bowel sounds. Absent: tenderness, distention, guarding, rebound, rigidity - Extremities Exam Extremities exam: Present: normal inspection, full ROM, normal capillary refill. Absent: tenderness, pedal edema, calf tenderness - Back Exam Back exam: Present: normal inspection, full ROM. Absent: tenderness, vertebral tenderness - Neurological Exam Neurological exam: Present: alert - Psychiatric Psychiatric exam: Present: normal affect, normal mood - Expanded Skin Exam Type of lesion: Present: other (Decubitus ulcer) Distribution: other (Sacrum) Description: Present: size (4 centimeter) 1 - Decubitus ulcer on the sacrum, 4 centimeter diameter with multiple smaller scattered Course Course Narrative: 71-year-old female presents with abdominal pain and bedsore. The bedsore has been persistent for past 3 weeks. The doll pain started today. Patients awake alert appears in no acute distress. She has a sore about 4 cm in diameter on her sacrum. Appears to be stage II. On exam her abdomen is soft and nontender. It is nondistended or rigid without any peritoneal signs. Just check some basic labs in a urinalysis. Patients in agreement with this plan. Her nieces at bedside and assist with some of history. Back in November she began developing these bedsores and she has been receiving home health to assist. She is a Zoroastrian. She refuses any blood transfusions and has been offered dialysis by her solution spec Dr. Beltre. She scheduled to see Dr. Beltre on the . At this time she does not receive dialysis or have a fistula. She was recently discharged from a nursing facility and has been weak ever sense. She denies any recent illness, bloody stool, black tarry stool. Review for labs today shows significant renal insufficiency with a creatinine 7. Her potassium is significantly elevated 6.2 will treat. Should be treated with calcium, bicarb, insulin and dextrose. Hemoglobin is 7.4 most recent 7.2, this is likely due to her renal insufficiency. She will likely need admission to the address her renal insufficiency and hyperkalemia. She will also need nephrology consultation. Family has requested social media project manager, Herminia is in the room discussing at this time. Vital Signs Temperature 98.7 F 03/18/17 11:04 Pulse Rate 74 03/18/17 11:04 Respiratory Rate 16 03/18/17 11:04 Blood Pressure 203/124 03/18/17 11:04 O2 Sat by Pulse Oximetry 99 03/18/17 11:04 Temperature 98.7 F 03/18/17 11:04 Pulse Rate 65 03/18/17 13:32 Respiratory Rate 16 03/18/17 13:32 Blood Pressure 179/110 03/18/17 13:32 O2 Sat by Pulse Oximetry 98 03/18/17 13:32 Oxygen Delivery Oxygen Delivery Room Air Wound/Laceration - MDM Narrative Medical decision making narrative: Patient was discussed with my attending physician who agrees with ED management and final disposition. They independently evaluated the patient. Please refer to their attestation to this encounter for additional information. This note was generated by [employer] voice recognition software and as a result grammatical or spelling errors may occur using this program. - Medical Records Medical records reviewed: Yes I reviewed the patient's medical records. - Lab Data Lab results reviewed: Yes I reviewed the patient's lab results. Result diagrams: 03/18/17 11:35 03/18/17 11:35 Lab Results 03/18/17 03/18/17 03/18/17 Range/Units 11:35 11:35 11:35 WBC 8.3 (4.3-11.1) K/mcL RBC 2.42 L (3.82-4.97) M/mcL Hgb 7.4 L (11.5-15.4) g/dL Hct 23.7 L (35.3-44.9) % MCV 97.9 (83.0-100.0) fL MCH 30.6 (28.0-33.3) pg MCHC 31.2 L (31.6-35.5) g/dL RDW 16.1 H (11.5-14.5) % Plt Count 235 (140-400) K/mcL MPV 9.8 (9.4-12.4) fL Immature Gran % 0.6 (0-4) % Seg Neutrophils % 78.9 % Lymphocytes % 16.3 % Monocytes % 2.8 % Eosinophils % 1.2 % Basophils % 0.2 % Neutrophils # 6.5 (1.6-8.9) K/mcL Lymphocytes # 1.4 (0.6-4.6) K/mcL Monocytes # 0.2 (0.0-1.3) K/mcL Eosinophils # 0.1 (0.0-0.6) K/mcL Basophils # 0.0 (0.0-0.2) K/mcL Sodium 139 (136-145) mEq/L Potassium 6.2 H (3.5-4.5) mEq/L Chloride 114 H (98-109) mEq/L Carbon Dioxide 16 L (19-29) mEq/L BUN 84 H (7-20) mg/dL Creatinine 7.01 H (0.57-1.11) mg/dL Est GFR ( Amer) 7 L (> 60) Est GFR (Non-Af Amer) 6 L (> 60) BUN/Creatinine Ratio 12 (6-26) Glucose 77 (70-99) mg/dL Calculated Osmolality 312 H (280-300) Lactic Acid 1.0 (0.5-2.2) mmol/L Calcium 8.6 (8.6-10.8) mg/dL Total Bilirubin 0.3 (0.2-1.2) mg/dL Direct Bilirubin 0.2 (0.0-0.5) mg/dL Indirect Bilirubin 0.1 (0.0-1.2) mg/dL AST 14 (5-34) Units/L ALT 6 (0-55) Units/L Alkaline Phosphatase 45 (38-126) Units/L Serum Total Protein 5.8 L (6.0-8.3) g/dL Albumin 2.3 L (3.5-5.0) g/dL Globulin 3.5 (2.4-3.5) g/dL Albumin/Globulin Ratio 0.7 L (1.1-2.2) - EKG Data EKG attestation: Yes I reviewed and interpreted this EKG. EKG results narrative: EKG performed 1310 normal sinus rhythm with first-degree AV block 63 bpm, FL interval to 21, QRS 185, right bundle branch block, no ST elevations or depression. Compared to old EKG performed 02/15/2017 show similar consistent findings QRS 158. Patient denies any chest pain. No acute ischemic changes. Attestation Statement - Attestation Attestation: I examined this patient and my medical decision-making was reviewed with the Resident Physician. I agree with the documented findings, disposition and treatment plan as described except to the extent set forth below. Patient presents to the ED with a chief complaint of pain in her sacrum. Patient has a known wound that the family has been taking care of. They say she is progressively become weaker. The requesting some rehabilitation. Patient has known chronic renal insufficiency. She has refused dialysis from Dr. Beltre in the past. On examination she is laying on her side in bed in no distress. She is alert and conversant. Abdomen is soft. She has a 4 cm wound over her sacrum. She also has some small scattered areas of skin breakdown on her bottom as well. Plan. Patient is in acute on chronic renal failure. Her creatinine is 7. Her potassium is 6.2. We will treat this. Will be admitted for treatment of her hyperkalemia before she sent for rehabilitation per the request. I did discuss with her family that her weakness is likely secondary to her chronic renal insufficiency.
[2017-03-18] MEDS ORDERED: Insulin Human Regular 10 UNIT in 0.9 % Sodium Chloride 10 ML IV ONE (12:45)
[2017-03-18] MEDS ORDERED: *HR* Dextrose 50 % in Water (Syg) 50 ML SYRINGE IVP ONE (12:45)
--- NOTE | 2017-03-18 15:25 | Palliative - Consult Note ---
<Ever Seo - Last Filed: 03/18/17 15:10> Date of Encounter: 03/18/17 Time of Encounter: 14:15 - Assessment and Plan (1) Counseling regarding advanced directives and goals of care Current Visit: Yes Status: Acute Assessment and plan: Patient clarified that she would want "to be brought back once, but nothing prolonging." This would make her CODE STATUS FULL CODE for the time being. Patient states that she has completed advanced directives (a copy of which is at home) and that her niece is her medical power of manual equipment mechanic. Her niece states that she will retrieve documentation for it to be included in our EMR. As for goals of care, the patient states that she will speak with her enterprise sales executive to make a final determination if she will undergo dialysis. She plans to be sent for rehab placement following this admission, though she does have [facility] (2) Acute on chronic kidney failure Current Visit: Yes Status: Acute Assessment and plan: Patient to speak with nephrology to determine if she will undergo dialysis, though it does look like that is the route she will follow. Qualifiers: Acute renal failure type: unspecified Chronic kidney disease stage: stage 5 , not on chronic dialysis Qualified Code(s): N17.9 - Acute kidney failure, unspecified; N18.5 - Chronic kidney disease, stage 5; N18.5 - Chronic kidney disease, stage 5; N18.5 - Chronic kidney disease, stage 5; N18.5 - Chronic kidney disease, stage 5 (3) Sacral decubitus ulcer, stage II Current Visit: Yes Status: Acute Assessment and plan: Management per primary team (4) Anemia in chronic kidney disease (CKD) Current Visit: Yes Status: Chronic Assessment and plan: Management per primary team Patient refusing all blood transfusions due to being [employer] Qualifiers: Chronic kidney disease stage: unspecified stage Qualified Code(s): N18.9 - Chronic kidney disease, unspecified; D63.1 - Anemia in chronic kidney disease; D63.1 - Anemia in chronic kidney disease (5) Refusal of blood transfusions as patient is Methodist Current Visit: Yes Status: Chronic Palliative-CN HPI - Data of Consult Requesting Physician: Simón Vivar DO Primary Care Provider: Abelino Dunlap MD - Consult Narrative Reason for consult: Plan of Care History of present illness: Ms. Park is a 71 year old female with CKD, diabetes, and stage II sacral decubitus ulcer who presented with pain over her tailbone which radiated into her abdomen. Her niece, who is with her in the ED today, takes care of her decubitus ulcer. She has no other complains and denies fever, chills, nausea, vomiting, CP, and SOB. She does not ambulate at home Social history is significant for the patient being a [employer]. She refuses blood transfusions. She has refused dialysis in the past, though she says that she "has a deal" with Dr. Patt Reinoso that she would do it "as a last resort if things get to a dangerous level." She states that she would like to discuss with Dr. Reinoso during this admission. CC: Past Med Surg Social Fam HX - Past Medical History Medical history: CHF, diabetes, hypertension, renal disease Psychiatric history: no psych history - Past Surgical History Surgical History: hysterectomy - Social History Smoking Status: Former smoker Smokeless Tobacco Status: No Alcohol use: none Drug use: none - Family History Father Family Member Ethnicity: Non- Living Status: Hx Family Cardiac Disorders: Yes (HTN) Hx Family Cancer: Yes (Prostate) Hx Family Endocrine Disorder: Yes (DM) Mother Family Member Ethnicity: Non- Living Status: Hx Family Cardiac Disorders: Yes (HTN) Hx Family Endocrine Disorder: Yes (DM) Brother Family Member Ethnicity: Non- Living Status: Hx Family Cardiac Disorders: Yes (DVT) Sister Family Member Ethnicity: Non- Living Status: Hx Family Cardiac Disorders: Yes (HTN) Medications and Allergies Aspirin [Lo-Dose Aspirin EC] 81 mg PO DAILY 11/23/16 [History] Carvedilol [Coreg] 25 mg PO BID 11/23/16 [History] Ferrous Sulfate [Iron] 325 mg PO DAILY 11/23/16 [History] Folic Acid 1 mg PO DAILY 11/23/16 [History] Furosemide [Lasix] 20 mg PO MOWEFR 11/23/16 [History] Furosemide [Lasix] 40 mg PO TUTHSA 11/23/16 [History] Hydralazine HCl 100 mg PO TID 11/23/16 [History] Isosorbide MONOnitrate [Isosorbide Mononitrate ER] 120 mg PO DAILY 11/23/16 [ History] NIFEdipine [Nifedipine ER] 90 mg PO DAILY 11/23/16 [History] Sodium Bicarbonate 650 mg PO BID 03/18/17 [History] cloNIDine HCl [CloNIDine HCl] 0.1 mg PO TID 03/18/17 [History] 3 Allergy/AdvReac Type Severity Reaction Status Date / Time No Known Allergies Allergy Verified 03/18/17 11:18 All systems: reviewed and no additional remarkable complaints except as stated ( abdominal pain radiating from tailbone) Palliative Care-Exam - Constitutional Vitals: Temp Pulse Resp BP Pulse Ox 98.7 F 65 16 179/110 98 03/18/17 11:04 03/18/17 13:32 03/18/17 13:32 03/18/17 13:32 03/18/17 13:32 General appearance: Present: cooperative, thin - Head Head Exam: Present: atraumatic, normal inspection, normocephalic - ENT ENT exam: Present: mucous membranes moist - Respiratory Respiratory exam: Present: CTAB - Cardiovascular Cardiovascular exam: Present: RRR, +S1, +S2 - GI/Abdominal Exam GI/Abdominal exam: Present: diminished bowel sounds, soft. Absent: tenderness - Extremities Exam Additional comments: 3+ edema to the level of the knee - Neurological Exam Neurological exam: Present: alert, oriented X3 - Psychiatric Psychiatric exam: Present: normal affect, normal mood - Skin Skin exam: Present: dry, warm Internal Medicine - CN: Reslt - Labs CBC & Chem 7: 03/18/17 11:35 03/18/17 11:35 Labs: Short CBC 03/18/17 Range/Units 11:35 WBC 8.3 (4.3-11.1) K/mcL Hgb 7.4 L (11.5-15.4) g/dL Hct 23.7 L (35.3-44.9) % Plt Count 235 (140-400) K/mcL Neutrophils # 6.5 (1.6-8.9) K/mcL BMP 03/18/17 11:35 Sodium 139 Potassium 6.2 H Chloride 114 H Carbon Dioxide 16 L BUN 84 H Creatinine 7.01 H Glucose 77 Calcium 8.6 Liver Function 12/11/17 Range/Units 11:35 Total Bilirubin 0.3 (0.2-1.2) mg/dL Direct Bilirubin 0.2 (0.0-0.5) mg/dL AST 14 (5-34) Units/L ALT 6 (0-55) Units/L Alkaline Phosphatase 45 (38-126) Units/L Albumin 2.3 L (3.5-5.0) g/dL Consult Discharge Plan - Plan Palliative Quality Palliative Quality: Screen for Code Status: Yes, Screen for Goals of Care: Yes, Screen for Pain: Yes, If Pain Regimen Started, Initiate Bowel Regimen: NA, Screen for Nausea/Vomitting: Yes Code Status: FULL CODE <Tay Hobson - Last Filed: 03/18/17 15:37> Date of Encounter: 03/18/17 Palliative-CN HPI - Data of Consult Requesting Physician: Bradly Stevenson MD Primary Care Provider: Abelino Dunlap MD - Consult Narrative History of present illness: Ms. Park is a 71 year old female CC: Bradly Stevenson MD Palliative Care-Exam - Constitutional Vitals: Temp Pulse Resp BP Pulse Ox 98.7 F 68 16 203/73 97 03/18/17 11:04 03/18/17 15:19 03/18/17 15:19 03/18/17 15:19 03/18/17 15:19 Internal Medicine - CN: Reslt - Labs CBC & Chem 7: 03/18/17 11:35 03/18/17 11:35 - Attending Attestation I examined this patient and my medical decision-making was reviewed with the Resident Physician. I agree with the documented findings, disposition and treatment plan as described except to the extent set forth below.
[2017-03-18] MEDS ORDERED: 0.9 % Sodium Chloride 250 ML IVC PRN (15:36)
[2017-03-18] MEDS ORDERED: 0.9 % Sodium Chloride 500 ML ONE (15:38)
[2017-03-18] MEDS ORDERED: *HR* Heparin 5,000 UNIT/ML VIAL ONE (15:44)
[2017-03-18] MEDS ORDERED: 0.9 % Sodium Chloride 1,000 ML PRIME SCH (15:45)
--- NOTE | 2017-03-18 15:52 | IR Procedure Note ---
Date of procedure: 03/18/17 Consent Obtained: Written consent Timeout: Correct patient and procedure verified, Time out performed, Skin prep completed Local anesthetic: Lidocaine 1% Indications: Acute on chronic renal failure Procedure Performed: Temp dialysis catheter placement Results/Findings: TAWANNAJ temp dialysis cath placement Complications: None; Tolerated procedure well (May use catheter)
--- NOTE | 2017-03-18 17:47 | Nephrology Consult Note ---
Date of Encounter: 03/18/17 Time of Encounter: 17:45 Assessment and Plan (1) End stage chronic kidney disease Current Visit: Yes Status: Acute Needs urgent hemodialysis given hyperkalemia and signs of uremia, discussed with patient and she wants to proceed for now. Will ask IR to place STAT temporary HD line today (2) Hyperkalemia Current Visit: Yes Status: Acute Potassium noted elevated at 6.2, will dialyze with low potassium bath which should correct this Renal diet advised (3) HTN (hypertension) Current Visit: No Status: Chronic BP readings elevated, should improve with some zuzf Will resume home BP meds as well Qualifiers: Hypertension type: essential hypertension Qualified Code(s): I10 - Essential (primary) hypertension (4) Anemia in chronic kidney disease (CKD) Current Visit: Yes Status: Chronic Hgb noted at 7.4, will dose with aranesp now Pt is a Jehova's witness and does not consent to any blood products! Qualifiers: Chronic kidney disease stage: unspecified stage Qualified Code(s): N18.9 - Chronic kidney disease, unspecified; D63.1 - Anemia in chronic kidney disease; D63.1 - Anemia in chronic kidney disease History of Present Illness - Reason for Consult Consult date: 03/18/17 Chronic Kidney Disease, hyperkalemia Requesting physician: Simón Vivar - History of Present Illness 71 y o AAfemale with PMH of HTN, anemia on EPO and stage 5 CKD admitted with very painful sacral decubitus ulcer and found with worsening renal fxn with SCr at 7.01, GFR 6 and hyperkalemia at 6.2. Pt reports being depressed lately over loss of her friend to kidney disease. She reports poor appetite and less activity overall. She has in fact missed 2 office appts with me for management of her renal diease. She has expressed interest in the past in PD only if absolutely necessary. Past Med Surg Social Fam HX - Past Medical History Medical history: CHF, diabetes, hypertension, renal disease Psychiatric history: no psych history - Past Surgical History Surgical History: hysterectomy - Social History Smoking Status: Former smoker Smokeless Tobacco Status: No Alcohol use: none Drug use: none - Family History Father Family Member Ethnicity: Non- Living Status: Hx Family Cardiac Disorders: Yes (HTN) Hx Family Cancer: Yes (Prostate) Hx Family Endocrine Disorder: Yes (DM) Mother Family Member Ethnicity: Non- Living Status: Hx Family Cardiac Disorders: Yes (HTN) Hx Family Endocrine Disorder: Yes (DM) Brother Family Member Ethnicity: Non- Living Status: Hx Family Cardiac Disorders: Yes (DVT) Sister Family Member Ethnicity: Non- Living Status: Hx Family Cardiac Disorders: Yes (HTN) Medications and Allergies Aspirin [Lo-Dose Aspirin EC] 81 mg PO DAILY 11/23/16 [History] Carvedilol [Coreg] 25 mg PO BID 11/23/16 [History] Ferrous Sulfate [Iron] 325 mg PO DAILY 11/23/16 [History] Folic Acid 1 mg PO DAILY 11/23/16 [History] Furosemide [Lasix] 20 mg PO MOWEFR 11/23/16 [History] Furosemide [Lasix] 40 mg PO TUTHSA 11/23/16 [History] Hydralazine HCl 100 mg PO TID 11/23/16 [History] Isosorbide MONOnitrate [Isosorbide Mononitrate ER] 120 mg PO DAILY 11/23/16 [ History] NIFEdipine [Nifedipine ER] 90 mg PO DAILY 11/23/16 [History] Sodium Bicarbonate 650 mg PO BID 03/18/17 [History] cloNIDine HCl [CloNIDine HCl] 0.1 mg PO TID 03/18/17 [History] 3 Allergy/AdvReac Type Severity Reaction Status Date / Time No Known Allergies Allergy Verified 03/18/17 11:18 Review of Systems All Systems: reviewed and no additional remarkable complaints except as stated ( 10 systems reviewed) Exam - Vital Signs Vital signs: Initial Vital Signs Temp Pulse Resp BP Pulse Ox 98.7 F 74 16 203/124 99 03/18/17 11:04 03/18/17 11:04 03/18/17 11:04 03/18/17 11:04 03/18/17 11:04 Vital Signs - Last 8 Hours Resp BP Pulse Ox 03/18/17 16:50 14 186/72 97 - General Appearance General appearance: chronically ill, frail EENT: ATNC, mucous membranes dry Neck: no JVD, supple Respiratory: clear Cardiology: edema (LE bilat) - Dialysis Access Dialysis Vascular Access: Venous Catheter (temp) Gastrointestinal: no tenderness, no guarding Integumentary: warm and dry Neurologic: no focal deficit Musculoskeletal: no deformities Psychiatric: mood/affect appropriate, cooperative Results - Lab Results 03/18/17 11:35 03/18/17 11:35 Most recent lab results Calcium 8.6 mg/dL (8.6-10.8) 03/18/17 11:35 Consult Discharge Plan - Plan Referrals: Abelino Dunlap MD [Primary Care Provider] -
[2017-03-18] MEDS ORDERED: Naloxone 0.4 MG/ML INJ IVP PRN (18:27)
[2017-03-18] MEDS ORDERED: Dextrose Gel 15 GM PO PRN ×2 (18:31)
[2017-03-18] MEDS ORDERED: D5% in Water 1,000 ML IVC PRN (18:31)
[2017-03-18] MEDS ORDERED: *HR* Dextrose 50 % in Water (Syg) 50 ML SYRINGE IVP PRN (18:31)
[2017-03-18 19:24] LABS: Hepatitis B Surface Antibody 0.21 mIU/mL
[2017-03-18 19:27] LABS: Hepatitis B Surface Antigen Nonreactive (Nonreactive)
[2017-03-18 19:30] LABS: Basophils % 0.3 %; Eosinophils % 0.5 %; Hematocrit 22.9 % (35.3-44.9); Hemoglobin 7.3 g/dL (11.5-15.4); Immature Granulocytes % 0.6 % (0-4); Lymphocytes % 13.1 %; Mean Corpuscular HGB Conc 31.9 g/dL (31.6-35.5); Mean Corpuscular Hemoglobin 30.4 pg (28.0-33.3); Mean Corpuscular Volume 95.4 fL (83.0-100.0); Mean Platelet Volume 10.3 fL (9.4-12.4); Monocytes # 0.4 K/mcL (0.0-1.3); Monocytes % 4.7 %; Neutrophils # 6.4 K/mcL (1.6-8.9); Platelet Count 236 K/mcL (140-400); Red Cell Distribution Width 15.7 % (11.5-14.5); Segmented Neutrophils % 80.8 %
[2017-03-18] MEDS ORDERED: *HR* Heparin 10,000 UNIT/10 ML VIAL IV PRN (19:39)
[2017-03-18] MEDS ORDERED: 0.9 % Sodium Chloride 2,000 ML ONE (19:53)
--- NOTE | 2017-03-18 20:04 | Internal Med History&Physical ---
<Zeny Sahni - Last Filed: 03/18/17 20:21> Date of Encounter: 03/18/17 Time of Encounter: 19:52 Assessment and Plan (1) Hyperkalemia Current visit: Yes Status: Acute 1 patient presented with potassium of 6.2 she has end-stage renal disease and is not receiving any dialysis. No T wave abnormalities noted on EKG. Dr. Beltre was consult and for dialysis. She was given calcium gluconate insulin sodium bicarbonate and dextrose in the ER monitor electrolytes Continuous cardiac monitoring (2) End stage chronic kidney disease Current visit: Yes Status: Acute Patient's creatinine on 7 potassium 6.2 she has been stage renal disease was spent discussing possibility of dialysis with Dr. Beltre. Nephrology has been consulted patient did receive temporary dialysis catheter per IR. She is being dialyzed today We will continue to monitor intake and output daily weights Monitor electrolytes (3) HTN (hypertension) Current visit: No Status: Chronic 1 continue with home medications patient has been hypertensive and is receiving dialysis Qualifiers: Hypertension type: essential hypertension Qualified Code(s): I10 - Essential (primary) hypertension (4) Diabetes Current visit: No Status: Chronic Patient states she has had a poor appetite home she has been hypoglycemic and actually had a hypoglycemic episode at the hospital. We will monitor blood sugars before meals at bedtime with sliding scale insulin as needed Diabetic diet Qualifiers: Diabetes mellitus type: type 2 Diabetes mellitus complication status: with kidney complications Diabetes mellitus complication detail: with chronic kidney disease Diabetes mellitus residential insulin use: unspecified terminal clerk insulin use status Chronic kidney disease stage: stage 5, not on chronic dialysis Qualified Code(s): E11.22 - Type 2 diabetes mellitus with diabetic chronic kidney disease; N18.5 - Chronic kidney disease, stage 5 (5) Sacral decubitus ulcer, stage II Current visit: Yes Status: Acute Patient has a stage II sacral decubitus ulcer we will consult wound care (6) Anemia in chronic kidney disease (CKD) Current visit: Yes Status: Chronic Presently the patient's hemoglobin 7.4 which appears to be stable this time previous hemoglobin was 7.3. Patient is a Jehovah witness and refuses blood transfusions. We will continue with iron supplements Anasep - per nephrology We will continue to monitor CBC Qualifiers: Chronic kidney disease stage: unspecified stage Qualified Code(s): N18.9 - Chronic kidney disease, unspecified; D63.1 - Anemia in chronic kidney disease; D63.1 - Anemia in chronic kidney disease (7) DVT prophylaxis Current visit: No Status: Acute 1 Heparin subcutaneous Internal Medicine - H&P: HPI Chief complaint: sacral pain Admitted From: Emergency Dept Plans for Post Hospital Care: Home History of present illness: Ms. Park is a 71 year old female past medical history of diabetes congestive heart failure hypertension anemia on EPO states 5 CK D stage II sacral decubitus ulcer. Patient presented with very painful sacral decubitus ulcer. This has been present for the past few months and her daughter has been treating the ulcer. She denies any fevers chills nausea vomiting. She does have a decreased appetite and has been experiencing hypoglycemia home. She is less active and sleeps a lot does not ambulate on her own. The patient is a Jehovah witness and refuses blood transfusions. She has been in discussion with Dr. Beltre concerning hemodialysis however she would like to do that as a "last resort" upon presentation to the ER lab work did reveal hyperkalemia with potassium of 6.2. Creatinine of 7.01. Hyperkalemia was treated in the ER Nephrology was consulted and they temporary dialysis catheter was placed in IR and patient was taken for dialysis. Presently the patient is receiving dialysis she did have a hypoglycemic episode with blood sugar and 53 she was given javi crackers per nursing staff. The way she is hemodynamically stable at this time I did review this case with Dr. Bartholomew who agrees with plan. 7 Past Med Surg Social Fam HX - Past Medical History Medical history: CHF, diabetes, hypertension, renal disease Psychiatric history: no psych history - Past Surgical History Surgical History: hysterectomy - Social History Smoking Status: Former smoker Smokeless Tobacco Status: No Alcohol use: none Drug use: none - Family History Father Family Member Ethnicity: Non- Living Status: Hx Family Cardiac Disorders: Yes (HTN) Hx Family Cancer: Yes (Prostate) Hx Family Endocrine Disorder: Yes (DM) Mother Family Member Ethnicity: Non- Living Status: Hx Family Cardiac Disorders: Yes (HTN) Hx Family Endocrine Disorder: Yes (DM) Brother Family Member Ethnicity: Non- Living Status: Hx Family Cardiac Disorders: Yes (DVT) Sister Family Member Ethnicity: Non- Living Status: Hx Family Cardiac Disorders: Yes (HTN) Internal Medicine - H&P: Meds Aspirin [Lo-Dose Aspirin EC] 81 mg PO DAILY 11/23/16 [History] Carvedilol [Coreg] 25 mg PO BID 11/23/16 [History] Ferrous Sulfate [Iron] 325 mg PO DAILY 11/23/16 [History] Folic Acid 1 mg PO DAILY 11/23/16 [History] Furosemide [Lasix] 20 mg PO MOWEFR 11/23/16 [History] Furosemide [Lasix] 40 mg PO TUTHSA 11/23/16 [History] Hydralazine HCl 100 mg PO TID 11/23/16 [History] Isosorbide MONOnitrate [Isosorbide Mononitrate ER] 120 mg PO DAILY 11/23/16 [ History] NIFEdipine [Nifedipine ER] 90 mg PO DAILY 11/23/16 [History] Sodium Bicarbonate 650 mg PO BID 03/18/17 [History] cloNIDine HCl [CloNIDine HCl] 0.1 mg PO TID 03/18/17 [History] 3 Allergy/AdvReac Type Severity Reaction Status Date / Time No Known Allergies Allergy Verified 03/18/17 11:18 All Systems PM: A 10-system review of systems was performed and is negative for pertinent findings except as documented above in the HPI. - Constitutional Constitutional: anorexia, fatigue, lethargy, weakness, no chills, no fever(s), no night sweats - EENT Eyes: no change in vision, no discharge, no pain, no photophobia Nose, mouth and throat: no dysphagia, no nasal discharge, no neck pain, no sore throat - Cardiovascular Cardiovascular ROS IM: no chest pain, no diaphoresis, no dyspnea, no lightheadedness, no palpitations, no syncope - Respiratory Respiratory: no cough, no dyspnea, no wheezing, no excessive phlegm production - Gastrointestinal Gastrointestinal: no abdominal pain, no diarrhea, no hematemesis, no hematochezia, no melena, no nausea, no vomiting - Genitourinary Genitourinary: no change in urinary stream, no dysuria, no flank pain, no hematuria - Musculoskeletal Musculoskeletal ROS IM: no numbness, no tingling - Integumentary Integumentary IM: non-healing lesions, skin ulcer - Neurological Neurological ROS: weakness, no confusion, no convulsions, no focal weakness, no numbness, no tingling, no tremor(s) - Hematologic/Lymphatic Hematologic/Lymphatic: no easy bruising - Constitutional Vitals: Temp Pulse Resp BP Pulse Ox 98.2 F 68 15 196/83 97 03/18/17 17:45 03/18/17 15:19 03/18/17 17:45 03/18/17 19:15 03/18/17 16:50 General appearance: Present: A&O X 3, answers questions appropriately - Head Head exam: Present: atraumatic, normocephalic - Eye Eye exam: Present: PERRL, conjuntiva pink, sclera anicteric Pupils: Present: PERRL - Neck Neck exam general surgery: Present: supple, trachea midline. Absent: lymphadenopathy - Respiratory Respiratory exam: Present: CTAB. Absent: accessory muscle use, rales, rhonchi, wheezes - Cardiovascular Cardiovascular exam: Present: RRR, +S1, +S2. Absent: diastolic murmur, gallop, rubs, systolic murmur - GI/Abdominal GI/Abdominal exam: Present: normal bowel sounds, soft, no peritoneal signs. Absent: distended, tenderness - Extremities Exam Extremities exam: Present: warm, radial pulses palpable and symmetrical. Absent : calf tenderness, cyanotic, pedal edema - Neurological Exam Neurological exam: Present: CN II-XII intact, oriented X3, no focal deficits. Absent: pronater drift, facial droop, speech deficit - Skin Skin exam: Present: dry, intact Internal Med - H&P Results - Labs CBC & Chem 7: 03/18/17 19:19 03/18/17 11:35 Labs: Short CBC 03/18/17 Range/Units 19:19 WBC 7.9 (4.3-11.1) K/mcL Hgb 7.3 L (11.5-15.4) g/dL Hct 22.9 L (35.3-44.9) % Plt Count 236 (140-400) K/mcL Neutrophils # 6.4 (1.6-8.9) K/mcL <Freddy Bartholomew K - Last Filed: 03/19/17 05:06> Date of Encounter: 03/18/17 Internal Medicine - H&P: HPI History of present illness: Ms. Park is a 71 year old female All Systems PM: A 10-system review of systems was performed and is negative for pertinent findings except as documented above in the HPI. - Constitutional Vitals: Temp Pulse Resp BP Pulse Ox 98.5 F 70 16 204/66 97 03/19/17 04:44 03/19/17 04:44 03/19/17 04:44 03/19/17 04:52 03/19/17 04:44 Internal Med - H&P Results - Labs CBC & Chem 7: 03/19/17 03:48 03/19/17 03:48 Labs: Short CBC 03/18/17 03/19/17 Range/Units 19:19 03:48 WBC 7.9 6.5 (4.3-11.1) K/mcL Hgb 7.3 L 6.1 L (11.5-15.4) g/dL Hct 22.9 L 19.2 L (35.3-44.9) % Plt Count 236 191 (140-400) K/mcL Neutrophils # 6.4 (1.6-8.9) K/mcL BMP 03/19/17 03:48 Sodium 140 Potassium 4.7 H D Chloride 111 H Carbon Dioxide 22 BUN 55 H D Creatinine 5.15 H Glucose 63 L Calcium 7.9 L - Attending Attestation Patient was seen and examined on March 18. She has come in with hyperkalemia and sacral decubitus. Plan discussed with advanced last practitioner note reviewed. Chest clear heart S1 and S2 rate rhythm regular abdomen soft. Agree with findings and plan. She had emergency dialysis today.
[2017-03-18] MEDS: cloNIDine HCl 0.1 MG TABLET PO SCH (23:09)
[2017-03-18] MEDS: hydrALAZINE 25 MG TABLET PO SCH (23:10)
[2017-03-18] MEDS: Insulin LISPRO 300 UNITS/3 ML VIAL SQ SCH (23:10)
[2017-03-18] MEDS: Furosemide 20 MG TABLET PO SCH (23:17)
[2017-03-19 03:57] LABS: Hematocrit 19.2 % (35.3-44.9); Hemoglobin 6.1 g/dL (11.5-15.4); Mean Corpuscular HGB Conc 31.8 g/dL (31.6-35.5); Mean Corpuscular Hemoglobin 30.2 pg (28.0-33.3); Mean Platelet Volume 9.8 fL (9.4-12.4); Platelet Count 191 K/mcL (140-400); Red Blood Count 2.02 M/mcL (3.82-4.97); Red Cell Distribution Width 15.7 % (11.5-14.5)
[2017-03-19 04:11] LABS: Calcium 7.9 mg/dL (8.6-10.8)
[2017-03-19 04:12] LABS: Potassium 4.7 mEq/L (3.5-4.5)
[2017-03-19] MEDS: NIFEdipine XL (24 HR) 30 MG TAB.ER.24 PO SCH (08:04)
[2017-03-19] MEDS: hydrALAZINE 25 MG TABLET PO SCH ×3 (08:04→20:35)
[2017-03-19] MEDS: Isosorbide MONOnitrate (24 HR) 60 MG TAB.ER.24H PO SCH (08:04)
[2017-03-19] MEDS: Folic Acid 1 MG TABLET PO SCH (08:05)
[2017-03-19] MEDS: Aspirin Enteric Coated 81 MG Tablet PO SCH (08:05)
[2017-03-19] MEDS: cloNIDine HCl 0.1 MG TABLET PO SCH ×3 (08:05→20:36)
[2017-03-19] MEDS ORDERED: 0.9 % Sodium Chloride 250 ML IVC PRN (08:06)
[2017-03-19] MEDS ORDERED: *HR* Heparin 10,000 UNIT/10 ML VIAL IV PRN (08:06)
[2017-03-19] MEDS: Insulin LISPRO 300 UNITS/3 ML VIAL SQ SCH ×4 (08:07→21:08)
--- NOTE | 2017-03-19 09:24 | Internal Med Progress Note ---
<Antonio Johnson - Last Filed: 03/19/17 09:56> Date of Encounter: 03/19/17 Time of Encounter: 09:00 - Assessment and plan (1) End stage chronic kidney disease Current Visit: Yes Status: Acute Assessment and plan: Patient's creatinine is 5.15. -Patient's last potassium level was 4.7. -Nephrology on board; discussed possibility of dialysis with Dr. Beltre. -Received temporary dialysis catheter per interventional radiology. -Continue to monitor electrolytes. -Daily weights, I&O -Cardiac/renal diet. (2) HTN (hypertension) Current Visit: No Status: Chronic Assessment and plan: She has known history of hypertension. Currently well controlled Plan: -Coreg 25 mg by mouth twice a day -Nifedipine 90 mg by mouth daily -Hydralazine 100 mg by mouth 3 times a day -Hydralazine 10 mg IV every 6 when necessary -Clonidine 0.1 mg by mouth 3 times a day -Lasix 20 mg by mouth MOWEFR -Lasix 40 mg by mouth TUTHSA Qualifiers: Hypertension type: essential hypertension Qualified Code(s): I10 - Essential (primary) hypertension (3) Anemia in chronic kidney disease (CKD) Current Visit: Yes Status: Chronic Assessment and plan: Patient hemoglobin is 7.4. -Patient's hemoglobin appears to be stable; previous hemoglobin was 7.3. -Patient is a [employer] Richard and refuses blood transfusion. -Continue iron supplements -Repeat a.m. labs. Qualifiers: Chronic kidney disease stage: unspecified stage Qualified Code(s): N18.9 - Chronic kidney disease, unspecified; D63.1 - Anemia in chronic kidney disease; D63.1 - Anemia in chronic kidney disease (4) Sacral decubitus ulcer, stage II Current Visit: Yes Status: Acute Assessment and plan: Stage II sacral decubitus ulcer approximately 4 cm in diameter. Consult wound care. (5) Hyperkalemia Current Visit: Yes Status: Acute Assessment and plan: Nephrology on board; patient has agreed to hemodialysis. Potassium on presentation was 6.2. Has decreased to 4.7. Repeat am labs. (6) Diabetes Current Visit: No Status: Chronic Assessment and plan: Patient reports poor appetite; has been hypoglycemic. Monitor blood sugars before meals and at bedtime with sliding scale insulin as needed. Qualifiers: Diabetes mellitus type: type 2 Diabetes mellitus complication status: with kidney complications Diabetes mellitus complication detail: with chronic kidney disease Diabetes mellitus detention insulin use: unspecified detention insulin use status Chronic kidney disease stage: stage 5, not on chronic dialysis Qualified Code(s): E11.22 - Type 2 diabetes mellitus with diabetic chronic kidney disease; N18.5 - Chronic kidney disease, stage 5; N18.5 - Chronic kidney disease, stage 5; N18.5 - Chronic kidney disease, stage 5; N18.5 - Chronic kidney disease, stage 5 (7) DVT prophylaxis Current Visit: No Status: Acute Assessment and plan: Heparin - Subjective Interval history: Ms. Park is a 71 year old female who presented to the hospital on 03/18/17 with a chief complaint of bedsore and abdominal pain. She has been treated for a sacral decubitus ulcer for the previous 3 weeks. Her niece helps takes care of it. Does not see a professional or wound care clinic. Ulcer is approximately 4 cm in diameter, appears to be stage II. Patient is mostly bedbound to 2 weakness in her legs. This has been present for the past few months and her daughter has been treating the ulcer. She denies any fevers chills nausea vomiting. She does have a decreased appetite and has been experiencing hypoglycemia home. She is less active and sleeps a lot does not ambulate on her own. The patient is a Jehovah witness and refuses blood transfusions. Ulcer started in November. According to niece, patient had been cared for by home health. Past medical history of diabetes congestive heart failure hypertension anemia on EPO states 5 CKD stage II sacral decubitus ulcer. She has been in discussion with Dr. Beltre concerning hemodialysis however she would like to do that as a "last resort" upon presentation to the ER lab work did reveal hyperkalemia with potassium of 6.2. Creatinine of 7.01. Hyperkalemia was treated in the ER. Nephrology was consulted, temporary dialysis catheter was placed, patient was taken to dialysis. Palliative care is on board. Per palliative, patient's CODE STATUS is full code at the present time. Patient's niece is the medical power of ruby engineer. Patient seen and examined events of this morning. Patient report ports that she is not feeling any pain in her sacrum or in her abdomen. Patient is resting comfortably in bed and has no complaints at this time. - Constitutional Vitals: Temp Pulse Resp BP Pulse Ox 98.4 F 73 15 207/72 97 03/19/17 07:04 03/19/17 07:04 03/19/17 07:04 03/19/17 07:04 03/19/17 07:04 General appearance: Present: A&O X 3, answers questions appropriately Internal Medicine: Result - Labs CBC & Chem 7: 03/19/17 03:48 03/19/17 03:48 Labs: Short CBC 03/18/17 03/19/17 Range/Units 19:19 03:48 WBC 7.9 6.5 (4.3-11.1) K/mcL Hgb 7.3 L 6.1 L (11.5-15.4) g/dL Hct 22.9 L 19.2 L (35.3-44.9) % Plt Count 236 191 (140-400) K/mcL Neutrophils # 6.4 (1.6-8.9) K/mcL BMP 03/19/17 03:48 Sodium 140 Potassium 4.7 H D Chloride 111 H Carbon Dioxide 22 BUN 55 H D Creatinine 5.15 H Glucose 63 L Calcium 7.9 L Consult Discharge Plan - [facility] - <Ramírez Coyne H - Last Filed: 03/19/17 13:42> Date of Encounter: 03/19/17 - Constitutional Vitals: Temp Pulse Resp BP Pulse Ox 98.8 F 73 16 117/50 97 03/19/17 12:00 03/19/17 07:04 03/19/17 12:00 03/19/17 12:00 03/19/17 07:04 Internal Medicine: Result - Labs CBC & Chem 7: 03/19/17 03:48 03/19/17 03:48 Labs: Short CBC 03/18/17 03/19/17 Range/Units 19:19 03:48 WBC 7.9 6.5 (4.3-11.1) K/mcL Hgb 7.3 L 6.1 L (11.5-15.4) g/dL Hct 22.9 L 19.2 L (35.3-44.9) % Plt Count 236 191 (140-400) K/mcL Neutrophils # 6.4 (1.6-8.9) K/mcL BMP 03/19/17 03:48 Sodium 140 Potassium 4.7 H D Chloride 111 H Carbon Dioxide 22 BUN 55 H D Creatinine 5.15 H Glucose 63 L Calcium 7.9 L - Attending Attestation Nephrology recommendations appreciated I examined this patient and my medical decision-making was reviewed with the Resident Physician. I agree with the documented findings, disposition and treatment plan as described except to the extent set forth below.
--- NOTE | 2017-03-19 10:36 | Palliative Progress Note ---
<GabbiKimEver - Last Filed: 03/19/17 10:33> Date of Encounter: 03/19/17 Time of Encounter: 09:00 - Assessment and plan (1) Counseling regarding advanced directives and goals of care Current Visit: Yes Status: Acute Assessment and plan: Niece is to bring in a copy of the patient's advanced directives today. Patient decided to have hemodialysis. Plans for rehab following discharge. Currently no palliative needs are required by the patient. We will sign off. Please feel free to contact if any needs should arise. (2) Acute on chronic kidney failure Current Visit: Yes Status: Acute Assessment and plan: Patient undergoing hemodialysis Qualifiers: Acute renal failure type: unspecified Chronic kidney disease stage: stage 5 , not on chronic dialysis Qualified Code(s): N17.9 - Acute kidney failure, unspecified; N18.5 - Chronic kidney disease, stage 5; N18.5 - Chronic kidney disease, stage 5; N18.5 - Chronic kidney disease, stage 5; N18.5 - Chronic kidney disease, stage 5 (3) Sacral decubitus ulcer, stage II Current Visit: Yes Status: Acute Assessment and plan: Management per wound care (4) Anemia in chronic kidney disease (CKD) Current Visit: Yes Status: Chronic Assessment and plan: Management per primary team. Of note, patient is Mosque and refuses blood transfusion. Qualifiers: Chronic kidney disease stage: unspecified stage Qualified Code(s): N18.9 - Chronic kidney disease, unspecified; D63.1 - Anemia in chronic kidney disease; D63.1 - Anemia in chronic kidney disease (5) Refusal of blood transfusions as patient is Mosque Current Visit: Yes Status: Chronic - Time Spent With Patient Total time spent is greater than 50% in coordination of care (as documented) at patient's floor/unit and/or counseling patient: - Subjective Interval history: Patient decided to have dialysis treatment. Has no complaints at this time. - Constitutional Vitals: Abnormal lab results RBC 2.02 M/mcL (3.82-4.97) L 03/19/17 03:48 Hgb 6.1 g/dL (11.5-15.4) L 03/19/17 03:48 Hct 19.2 % (35.3-44.9) L 03/19/17 03:48 RDW 15.7 % (11.5-14.5) H 03/19/17 03:48 Potassium 4.7 mEq/L (3.5-4.5) H D 03/19/17 03:48 Chloride 111 mEq/L (98-109) H 03/19/17 03:48 BUN 55 mg/dL (7-20) H D 03/19/17 03:48 Creatinine 5.15 mg/dL (0.57-1.11) H 03/19/17 03:48 Est GFR ( Amer) 10 (> 60) L 03/19/17 03:48 Est GFR (Non-Af Amer) 8 (> 60) L 03/19/17 03:48 Glucose 63 mg/dL (70-99) L 03/19/17 03:48 Calculated Osmolality 303 (280-300) H 03/19/17 03:48 Calcium 7.9 mg/dL (8.6-10.8) L 03/19/17 03:48 Serum Total Protein 5.8 g/dL (6.0-8.3) L 03/18/17 11:35 Albumin 2.3 g/dL (3.5-5.0) L 03/18/17 11:35 Albumin/Globulin Ratio 0.7 (1.1-2.2) L 03/18/17 11:35 General appearance: Present: cooperative, no acute distress - Head Head exam: Present: atraumatic, normal inspection, normocephalic - ENT ENT exam: Present: mucous membranes moist - Respiratory Respiratory exam: Present: CTAB. Absent: respiratory distress - Cardiovascular Cardiovascular exam: Present: RRR, +S1, +S2 - GI/Abdominal GI/Abdominal exam: Present: normal bowel sounds, soft. Absent: tenderness - Extremities Exam Additional comments: +2-3 edema to the level of the knee - Neurological Exam Neurological exam: Present: alert, oriented X3 - Psychiatric Psychiatric exam: Present: normal affect, normal mood - Skin Skin exam: Present: dry, warm Palliative Quality Palliative Quality: Screen for Code Status: Yes, Screen for Goals of Care: Yes, Screen for Pain: Yes, If Pain Regimen Started, Initiate Bowel Regimen: NA, Screen for Nausea/Vomitting: Yes - Labs CBC & Chem 7: 03/19/17 03:48 03/19/17 03:48 Labs: Laboratory Results - last 24 hr 03/18/17 03/18/17 03/18/17 19:19 21:39 22:46 WBC 7.9 RBC 2.40 L Hgb 7.3 L Hct 22.9 L MCV 95.4 MCH 30.4 MCHC 31.9 RDW 15.7 H Plt Count 236 MPV 10.3 Immature Gran % 0.6 Seg Neutrophils % 80.8 Lymphocytes % 13.1 Monocytes % 4.7 Eosinophils % 0.5 Basophils % 0.3 Neutrophils # 6.4 Lymphocytes # 1.0 Monocytes # 0.4 Eosinophils # 0.0 Basophils # 0.0 Sodium Potassium Chloride Carbon Dioxide BUN Creatinine Est GFR ( Amer) Est GFR (Non-Af Amer) BUN/Creatinine Ratio Glucose POC Glucose 59 104 H Calculated Osmolality Calcium 03/19/17 03/19/17 03/19/17 03:48 03:48 07:02 WBC 6.5 RBC 2.02 L Hgb 6.1 L Hct 19.2 L MCV 95.0 MCH 30.2 MCHC 31.8 RDW 15.7 H Plt Count 191 MPV 9.8 Immature Gran % Seg Neutrophils % Lymphocytes % Monocytes % Eosinophils % Basophils % Neutrophils # Lymphocytes # Monocytes # Eosinophils # Basophils # Sodium 140 Potassium 4.7 H D Chloride 111 H Carbon Dioxide 22 BUN 55 H D Creatinine 5.15 H Est GFR ( Amer) 10 L Est GFR (Non-Af Amer) 8 L BUN/Creatinine Ratio 11 Glucose 63 L POC Glucose 74 Calculated Osmolality 303 H Calcium 7.9 L Consult Discharge Plan - Plan [facility] - <Tay Hobson - Last Filed: 03/19/17 11:33> Date of Encounter: 03/19/17 - Time Spent With Patient Total time spent is greater than 50% in coordination of care (as documented) at patient's floor/unit and/or counseling patient: - Constitutional Vitals: Abnormal lab results RBC 2.02 M/mcL (3.82-4.97) L 03/19/17 03:48 Hgb 6.1 g/dL (11.5-15.4) L 03/19/17 03:48 Hct 19.2 % (35.3-44.9) L 03/19/17 03:48 RDW 15.7 % (11.5-14.5) H 03/19/17 03:48 Potassium 4.7 mEq/L (3.5-4.5) H D 03/19/17 03:48 Chloride 111 mEq/L (98-109) H 03/19/17 03:48 BUN 55 mg/dL (7-20) H D 03/19/17 03:48 Creatinine 5.15 mg/dL (0.57-1.11) H 03/19/17 03:48 Est GFR ( Amer) 10 (> 60) L 03/19/17 03:48 Est GFR (Non-Af Amer) 8 (> 60) L 03/19/17 03:48 Glucose 63 mg/dL (70-99) L 03/19/17 03:48 Calculated Osmolality 303 (280-300) H 03/19/17 03:48 Calcium 7.9 mg/dL (8.6-10.8) L 03/19/17 03:48 Serum Total Protein 5.8 g/dL (6.0-8.3) L 03/18/17 11:35 Albumin 2.3 g/dL (3.5-5.0) L 03/18/17 11:35 Albumin/Globulin Ratio 0.7 (1.1-2.2) L 03/18/17 11:35 - Attending Attestation I examined this patient and my medical decision-making was reviewed with the Resident Physician. I agree with the documented findings, disposition and treatment plan as described except to the extent set forth below. - Labs CBC & Chem 7: 03/19/17 03:48 03/19/17 03:48 Labs: Laboratory Results - last 24 hr 03/18/17 03/18/17 03/18/17 19:19 21:39 22:46 WBC 7.9 RBC 2.40 L Hgb 7.3 L Hct 22.9 L MCV 95.4 MCH 30.4 MCHC 31.9 RDW 15.7 H Plt Count 236 MPV 10.3 Immature Gran % 0.6 Seg Neutrophils % 80.8 Lymphocytes % 13.1 Monocytes % 4.7 Eosinophils % 0.5 Basophils % 0.3 Neutrophils # 6.4 Lymphocytes # 1.0 Monocytes # 0.4 Eosinophils # 0.0 Basophils # 0.0 Sodium Potassium Chloride Carbon Dioxide BUN Creatinine Est GFR ( Amer) Est GFR (Non-Af Amer) BUN/Creatinine Ratio Glucose POC Glucose 59 104 H Calculated Osmolality Calcium 03/19/17 03/19/17 03/19/17 03:48 03:48 07:02 WBC 6.5 RBC 2.02 L Hgb 6.1 L Hct 19.2 L MCV 95.0 MCH 30.2 MCHC 31.8 RDW 15.7 H Plt Count 191 MPV 9.8 Immature Gran % Seg Neutrophils % Lymphocytes % Monocytes % Eosinophils % Basophils % Neutrophils # Lymphocytes # Monocytes # Eosinophils # Basophils # Sodium 140 Potassium 4.7 H D Chloride 111 H Carbon Dioxide 22 BUN 55 H D Creatinine 5.15 H Est GFR ( Amer) 10 L Est GFR (Non-Af Amer) 8 L BUN/Creatinine Ratio 11 Glucose 63 L POC Glucose 74 Calculated Osmolality 303 H Calcium 7.9 L
[2017-03-19] MEDS ORDERED: 0.9 % Sodium Chloride 2,000 ML ONE (12:48)
--- NOTE | 2017-03-19 12:58 | Nephrology Progress Note ---
Date of Encounter: 03/19/17 Time of Encounter: 11:00 - Assessment and Plan (1) End stage chronic kidney disease Current Visit: Yes Status: Acute Will continue HD second treatment today and plan a third tomorrow Will also plan for permcath placement with IR Will also start working on placement for outpatient HD, will need at [place] if going to [facility] for rehab (2) Hyperkalemia Current Visit: Yes Status: Acute Resolving with HD renal diet advised (3) HTN (hypertension) Current Visit: No Status: Chronic Improving with UF and on home meds Qualifiers: Hypertension type: essential hypertension Qualified Code(s): I10 - Essential (primary) hypertension (4) Anemia in chronic kidney disease (CKD) Current Visit: Yes Status: Chronic HGb noted low at 6.1, s/p aranesp No transfusion due to zoroastrianism beliefs Qualifiers: Chronic kidney disease stage: unspecified stage Qualified Code(s): N18.9 - Chronic kidney disease, unspecified; D63.1 - Anemia in chronic kidney disease; D63.1 - Anemia in chronic kidney disease (5) Sacral decubitus ulcer, stage II Current Visit: Yes Status: Acute Wound care consult per primary laura Pain control per primary team Subjective Interval history: Pt seen and examined on HD today. s/o first treatment yesterday which she tolerated well. She is complaining today of decubitus ulcer pains and wanting more done. Objective - Vital Signs Vital signs: Vital Signs Temp Pulse Resp BP Pulse Ox 03/19/17 12:00 98.8 F 16 117/50 03/19/17 11:45 98/49 03/19/17 11:30 92/44 03/19/17 11:15 93/46 03/19/17 11:00 92/46 03/19/17 10:45 136/89 03/19/17 10:30 100/49 03/19/17 10:15 99/47 03/19/17 10:00 99/50 03/19/17 09:45 101/50 03/19/17 09:30 107/50 03/19/17 09:15 104/51 03/19/17 09:00 106/50 03/19/17 08:45 99.1 F 16 135/57 03/19/17 07:04 98.4 F 73 15 207/72 97 03/19/17 04:52 204/66 03/19/17 04:44 98.5 F 70 16 208/63 97 03/19/17 00:48 98.3 F 70 18 204/65 98 03/18/17 19:55 98.7 F 14 203/85 03/18/17 19:45 199/84 03/18/17 19:15 196/83 03/18/17 18:45 206/86 Intake and Output 03/18/17 03/19/17 03/19/17 23:59 07:59 15:59 Intake Total 240 / 840 600 / 600 Output Total 1600 / 1600 1600 / 1600 Balance -1360 / -760 -1000 / -1000 Intake: Oral 240 / 240 0 / 0 Intake, Rinseback and Flushes 600 / 600 Output: Urine 0 / 0 0 / 0 Total Dialysis (HD) Output 1600 / 1600 1600 / 1600 Other: Meal Javier javi crackers/peanut butter snack # Urine Diapers 1 Weight 61.8 kg Blood Glucose* 104 74 96 Hemodialysis Net Fluid Removed 1000 1000 (mL) Patient Weight 03/19/17 23:59 Weight 61.8 kg - General Appearance General appearance: Present: chronically ill, frail EENT: Present: ATNC, mucous membranes moist Neck: Present: no JVD, supple Respiratory: Present: clear (ant bilat) Cardiology: Present: edema (improving LE bilat), normal S1, normal S2 Dialysis Vascular Access: Venous Catheter (temp HD line) Gastrointestinal: Present: no tenderness, no guarding Integumentary: Present: warm and dry Neurologic: Present: no focal deficit Musculoskeletal: Present: no deformities Psychiatric: Present: cooperative - Lab 03/19/17 03:48 03/19/17 03:48 Most recent lab results Calcium 7.9 mg/dL (8.6-10.8) L 03/19/17 03:48 Consult Discharge Plan - Plan Referrals: Abelino Dunlap MD [Primary Care Provider] -
--- NOTE | 2017-03-19 14:18 | Electrocardiograph Report ---
[place] [facility] Test Date: 2017-03-18 Pat Name: Lita Park Department: [id number] Room: 2A26 Gender: F Validation Scientist: : 1945 Requested By: Simón Vivar Order Number: [id number] Reading MD: Tanner Tovar MD Measurements Intervals Martinez Rate: 63 P: 78 [place]: 221 QRS: -62 QRSD: 185 T: 91 QT: 478 QTc: 485 Interpretive Statements SINUS RHYTHM WITH FIRST DEGREE AV BLOCK RIGHT BUNDLE BRANCH BLOCK [120+ ms QRS DURATION, UPRIGHT V1, 40+ ms S IN I/aVL/V4/V5/V6] LEFT ANTERIOR FASCICULAR BLOCK [QRS AXIS <= -45, QR IN I, RS IN II] Electronically Signed On 03-19-2017 14:16:58 EST by Tanner Tovar MD
[2017-03-19] MEDS: Furosemide 40 MG TABLET PO SCH ×2 (20:36→21:09)
[2017-03-20 05:11] LABS: Mean Platelet Volume 10.5 fL (9.4-12.4)
[2017-03-20 05:13] LABS: Hematocrit 18.3 % (35.3-44.9); Mean Corpuscular HGB Conc 32.2 g/dL (31.6-35.5); Mean Corpuscular Hemoglobin 30.3 pg (28.0-33.3); Mean Corpuscular Volume 93.8 fL (83.0-100.0); Platelet Count 187 K/mcL (140-400); Red Blood Count 1.95 M/mcL (3.82-4.97); Red Cell Distribution Width 15.2 % (11.5-14.5)
[2017-03-20 05:26] LABS: Calcium 7.6 mg/dL (8.6-10.8); Potassium 3.9 mEq/L (3.5-4.5)
[2017-03-20 05:28] LABS: Hemoglobin 5.9 g/dL (11.5-15.4)
[2017-03-20] MEDS: Insulin LISPRO 300 UNITS/3 ML VIAL SQ SCH ×4 (08:01→20:22)
[2017-03-20] MEDS: Folic Acid 1 MG TABLET PO SCH (08:02)
[2017-03-20] MEDS: Aspirin Enteric Coated 81 MG Tablet PO SCH (08:09)
[2017-03-20] MEDS: Isosorbide MONOnitrate (24 HR) 60 MG TAB.ER.24H PO SCH (08:09)
[2017-03-20] MEDS: cloNIDine HCl 0.1 MG TABLET PO SCH ×3 (08:09→20:09)
[2017-03-20] MEDS: NIFEdipine XL (24 HR) 30 MG TAB.ER.24 PO SCH (08:10)
[2017-03-20] MEDS: hydrALAZINE 25 MG TABLET PO SCH ×3 (08:10→20:09)
[2017-03-20] MEDS ORDERED: 0.9 % Sodium Chloride 250 ML IVC PRN (08:14)
[2017-03-20] MEDS ORDERED: *HR* Heparin 10,000 UNIT/10 ML VIAL IV PRN (08:14)
--- NOTE | 2017-03-20 10:38 | Internal Med Progress Note ---
<Antonio Johnson - Last Filed: 03/20/17 14:51> Date of Encounter: 03/20/17 Time of Encounter: 09:45 - Assessment and plan (1) End stage chronic kidney disease Current Visit: Yes Status: Acute Assessment and plan: Patient's creatinine is 3.30 -Patient's last potassium level was 3.9 -Nephrology on board; discussed possibility of dialysis with Dr. Beltre. -Received temporary dialysis catheter per interventional radiology. -Per nephrology, will start working on placement for outpatient hemodialysis. -Continue to monitor electrolytes. -Daily weights, I&O -Cardiac/renal diet. (2) HTN (hypertension) Current Visit: No Status: Chronic Assessment and plan: She has known history of hypertension. Blood pressure this morning was 162/57. Plan: -Coreg 25 mg by mouth twice a day -Nifedipine 90 mg by mouth daily -Hydralazine 100 mg by mouth 3 times a day -Hydralazine 10 mg IV every 6 when necessary -Clonidine 0.1 mg by mouth 3 times a day -Lasix 20 mg by mouth MOWEFR -Lasix 40 mg by mouth TUTHSA Qualifiers: Hypertension type: essential hypertension Qualified Code(s): I10 - Essential (primary) hypertension (3) Anemia in chronic kidney disease (CKD) Current Visit: Yes Status: Chronic Assessment and plan: Patient hemoglobin is 5.9. -Patient is a Scientologist Richard and refuses blood transfusion. -Continue iron supplements -Repeat a.m. labs. Qualifiers: Chronic kidney disease stage: unspecified stage Qualified Code(s): N18.9 - Chronic kidney disease, unspecified; D63.1 - Anemia in chronic kidney disease; D63.1 - Anemia in chronic kidney disease (4) Sacral decubitus ulcer, stage II Current Visit: Yes Status: Acute Assessment and plan: Stage II sacral decubitus ulcer approximately 4 cm in diameter. Patient was seen by wound care nurse yesterday; recommend special mattress. (5) Hyperkalemia Current Visit: Yes Status: Acute Assessment and plan: Nephrology on board; patient has agreed to hemodialysis. Potassium on presentation was 6.2. Has decreased to 3.9. Repeat am labs. (6) Diabetes Current Visit: No Status: Chronic Assessment and plan: Patient reports poor appetite; has been hypoglycemic. Monitor blood sugars before meals and at bedtime with sliding scale insulin as needed. Glucoses morning was 76. Qualifiers: Diabetes mellitus type: type 2 Diabetes mellitus complication status: with kidney complications Diabetes mellitus complication detail: with chronic kidney disease Diabetes mellitus [facility] insulin use: unspecified [facility] term [facility] insulin use status Chronic kidney disease stage: stage 5, not on chronic dialysis Qualified Code(s): E11.22 - Type 2 diabetes mellitus with diabetic chronic kidney disease; N18.5 - Chronic kidney disease, stage 5; N18.5 - Chronic kidney disease, stage 5; N18.5 - Chronic kidney disease, stage 5; N18.5 - Chronic kidney disease, stage 5 (7) DVT prophylaxis Current Visit: No Status: Acute Assessment and plan: Heparin - Subjective Interval history: Patient seen and examined at bedside this morning. Patient report ports that she is not feeling any pain in her sacrum or in her abdomen. Patient is resting comfortably in bed and has no complaints at this time. Patient was seen by wound care nurse yesterday. Nurse recommended special mattress. - Constitutional Vitals: Temp Pulse Resp BP Pulse Ox 98.1 F 78 16 162/57 97 03/20/17 07:37 03/20/17 07:37 03/20/17 07:37 03/20/17 07:37 03/20/17 07:37 General appearance: Present: A&O X 3, answers questions appropriately - Head Head exam: Present: atraumatic, normocephalic - Eye Eye exam: Present: PERRL, conjuntiva pink, sclera anicteric Pupils: Present: PERRL - Neck Neck exam general surgery: Present: supple, trachea midline. Absent: lymphadenopathy - Respiratory Respiratory exam: Present: CTAB. Absent: accessory muscle use, rales, rhonchi, wheezes - Cardiovascular Cardiovascular exam: Present: RRR, +S1, +S2. Absent: diastolic murmur, gallop, rubs, systolic murmur - GI/Abdominal GI/Abdominal exam: Absent: distended, tenderness - Extremities Exam Extremities exam: Present: pedal edema - Skin Skin exam: Present: dry, intact Additional comments: Patient has a sacral ulcer stage II. Currently dressed. Internal Medicine: Result - Labs CBC & Chem 7: 03/20/17 04:25 03/20/17 04:25 Labs: Short CBC 03/20/17 Range/Units 04:25 WBC 6.6 (4.3-11.1) K/mcL Hgb 5.9 L* (11.5-15.4) g/dL Hct 18.3 L (35.3-44.9) % Plt Count 187 (140-400) K/mcL [facility] 03/20/17 04:25 Sodium 139 Potassium 3.9 Chloride 103 Carbon Dioxide 27 BUN 26 H D Creatinine 3.30 H Glucose 76 Calcium 7.6 L - VTE Documentation of Mechanical Device: Intermittent pneumatic compression device Consult Discharge Plan - Plan [facility] - 03/29/17 2:00 pm (Please follow up as schedule....) <Ramírez Coyne - Last Filed: 03/20/17 15:04> Date of Encounter: 03/20/17 - Constitutional Vitals: Temp Pulse Resp BP Pulse Ox 98.1 F 73 17 175/63 98 03/20/17 11:02 03/20/17 11:02 03/20/17 11:02 03/20/17 11:02 03/20/17 11:02 Internal Medicine: Result - Labs CBC & Chem 7: 03/20/17 04:25 03/20/17 04:25 Labs: Short CBC 03/20/17 Range/Units 04:25 WBC 6.6 (4.3-11.1) K/mcL Hgb 5.9 L* (11.5-15.4) g/dL Hct 18.3 L (35.3-44.9) % Plt Count 187 (140-400) K/mcL [facility] 03/20/17 04:25 Sodium 139 Potassium 3.9 Chloride 103 Carbon Dioxide 27 BUN 26 H D Creatinine 3.30 H Glucose 76 Calcium 7.6 L
[2017-03-20] MEDS ORDERED: 0.9 % Sodium Chloride 2,000 ML ONE (11:57)
--- NOTE | 2017-03-20 17:10 | Nephrology Progress Note ---
Date of Encounter: 03/20/17 Time of Encounter: 11:25 - Assessment and Plan (1) End stage chronic kidney disease Current Visit: Yes Status: Acute Thrid HD planned today Will also plan for permcath placement with IR Will also start working on placement for outpatient HD (2) Hyperkalemia Current Visit: Yes Status: Acute Resolving with HD Continue renal diet (3) HTN (hypertension) Current Visit: No Status: Chronic Improving with UF and on home meds Qualifiers: Hypertension type: essential hypertension Qualified Code(s): I10 - Essential (primary) hypertension (4) Anemia in chronic kidney disease (CKD) Current Visit: Yes Status: Chronic Hgb noted low at 5.9, s/p aranesp No transfusion due to advent beliefs Qualifiers: Chronic kidney disease stage: unspecified stage Qualified Code(s): N18.9 - Chronic kidney disease, unspecified; D63.1 - Anemia in chronic kidney disease; D63.1 - Anemia in chronic kidney disease (5) Sacral decubitus ulcer, stage II Current Visit: Yes Status: Acute Wound care consult per primary laura Pain control per primary team Subjective Interval history: Pt seen and examined feels a little better today. No new complaints. Objective - Vital Signs Vital signs: Vital Signs Temp Pulse Resp BP Pulse Ox 03/20/17 16:26 98 F 20 174/78 03/20/17 16:15 179/79 03/20/17 16:00 178/82 03/20/17 15:45 176/82 03/20/17 15:30 172/77 03/20/17 15:15 184/77 03/20/17 15:00 172/79 03/20/17 14:45 172/81 03/20/17 14:30 178/53 03/20/17 14:15 179/76 03/20/17 14:00 175/76 03/20/17 13:45 170/76 03/20/17 13:30 172/76 03/20/17 13:15 98.5 F 22 175/82 03/20/17 11:02 98.1 F 73 17 175/63 98 03/20/17 07:37 98.1 F 78 16 162/57 97 03/20/17 03:54 98.3 F 76 16 145/59 96 03/19/17 23:32 98.2 F 71 16 128/52 100 03/19/17 19:24 98.3 F 71 17 126/48 97 Intake and Output 03/20/17 03/20/17 03/20/17 07:59 15:59 23:59 Intake Total 700 / 700 Output Total 3600 / 3600 Balance 700 / 700 -3600 / -3600 Intake: Oral 100 / 100 Intake, Rinseback and Flushes 600 / 600 Output: Urine 0 / 0 Total Dialysis (HD) Output 3600 / 3600 Other: Meal Lunch Percent of Meal Consumed 10% Weight 63.276 kg 63.276 kg Blood Glucose* 77 87 Hemodialysis Net Fluid Removed 3007 3000 (mL) Patient Weight 03/20/17 23:59 Weight 63.276 kg - General Appearance General appearance: Present: chronically ill, frail EENT: Present: ATNC, mucous membranes moist Neck: Present: no JVD, supple Respiratory: Present: clear Cardiology: Present: edema (trace LE bilat), normal S1, normal S2 Dialysis Vascular Access: Venous Catheter (temp) Gastrointestinal: Present: no tenderness, no guarding Integumentary: Present: warm and dry Neurologic: Present: no focal deficit Psychiatric: Present: mood/affect appropriate, cooperative - Lab 03/20/17 04:25 03/20/17 04:25 Most recent lab results Calcium 7.6 mg/dL (8.6-10.8) L 03/20/17 04:25 - VTE Documentation of Mechanical Device: Intermittent pneumatic compression device Consult Discharge Plan - Plan Referrals: Abelino Dunlap MD [Primary Care Provider] - 03/29/17 2:00 pm (Please follow up as schedule....)
[2017-03-20] MEDS: Furosemide 20 MG TABLET PO SCH (20:08)
[2017-03-21 03:31] LABS: Hematocrit 18.7 % (35.3-44.9); Hemoglobin 6.1 g/dL (11.5-15.4); Mean Corpuscular HGB Conc 32.6 g/dL (31.6-35.5); Mean Corpuscular Volume 94.9 fL (83.0-100.0); Mean Platelet Volume 10.4 fL (9.4-12.4); Platelet Count 166 K/mcL (140-400); Red Blood Count 1.97 M/mcL (3.82-4.97); Red Cell Distribution Width 15.3 % (11.5-14.5)
[2017-03-21 03:41] LABS: INR 1.1; Prothrombin Time 11.6 Seconds (9.4-12.1)
[2017-03-21 03:43] LABS: Calcium 7.7 mg/dL (8.6-10.8); Potassium 3.8 mEq/L (3.5-4.5)
[2017-03-21] MEDS: cloNIDine HCl 0.1 MG TABLET PO SCH ×3 (05:00→21:00)
[2017-03-21] MEDS: hydrALAZINE 25 MG TABLET PO SCH ×3 (07:53→21:00)
[2017-03-21] MEDS: Folic Acid 1 MG TABLET PO SCH (07:54)
[2017-03-21] MEDS: NIFEdipine XL (24 HR) 30 MG TAB.ER.24 PO SCH (07:54)
[2017-03-21] MEDS: Aspirin Enteric Coated 81 MG Tablet PO SCH (07:54)
[2017-03-21] MEDS: Isosorbide MONOnitrate (24 HR) 60 MG TAB.ER.24H PO SCH (07:54)
[2017-03-21] MEDS: Insulin LISPRO 300 UNITS/3 ML VIAL SQ SCH ×3 (07:55→20:57)
[2017-03-21] MEDS ORDERED: *HR* Midazolam HCl 2 MG/2 ML VIAL IVP ONE (13:15)
[2017-03-21] MEDS ORDERED: *HR* FentaNYL (PF) 100 MCG/2 ML VIAL IVP ONE (13:15)
[2017-03-21] MEDS ORDERED: 0.9 % Sodium Chloride 500 ML ONE ×2 (13:18→14:06)
[2017-03-21] MEDS ORDERED: CeFAZolin Premix DUPLEX 2,000 MG/50 ML BAG IVPB ONE ×2 (13:42→14:00)
--- NOTE | 2017-03-21 14:09 | Nephrology Progress Note ---
Date of Encounter: 03/21/17 Time of Encounter: 12:00 - Assessment and Plan (1) End stage chronic kidney disease Current Visit: Yes Status: Acute Thrid HD planned today Will also plan for permcath placement with IR Will also start working on placement for outpatient HD (2) Hyperkalemia Current Visit: Yes Status: Acute Resolving with HD Continue renal diet (3) HTN (hypertension) Current Visit: No Status: Chronic Improving with UF and on home meds Qualifiers: Hypertension type: essential hypertension Qualified Code(s): I10 - Essential (primary) hypertension (4) Anemia in chronic kidney disease (CKD) Current Visit: Yes Status: Chronic Hgb noted low at 5.9, s/p aranesp No transfusion due to methodist beliefs Qualifiers: Chronic kidney disease stage: unspecified stage Qualified Code(s): N18.9 - Chronic kidney disease, unspecified; D63.1 - Anemia in chronic kidney disease; D63.1 - Anemia in chronic kidney disease (5) Sacral decubitus ulcer, stage II Current Visit: Yes Status: Acute Wound care consult per primary laura Pain control per primary team Subjective Interval history: Pt seen and examined feels a little better today. No new complaints. Objective - Vital Signs Vital signs: Vital Signs Temp Pulse Resp BP Pulse Ox 03/21/17 13:04 70 13 111/60 96 03/21/17 11:30 98.4 F 70 13 111/60 96 03/21/17 07:49 99.0 F 70 14 214/65 97 03/21/17 06:07 78 175/70 03/21/17 04:40 170/72 03/21/17 04:37 195/67 03/21/17 04:25 97.4 F L 74 15 96 03/21/17 02:55 76 210/64 03/21/17 02:32 221/68 03/21/17 02:26 76 197/60 03/21/17 01:09 200/60 03/21/17 01:05 80 201/65 03/21/17 00:15 98.5 F 78 15 189/67 98 03/20/17 21:36 98.6 F 87 15 165/72 98 03/20/17 20:16 98.9 F 83 16 184/61 100 03/20/17 16:26 98 F 20 174/78 03/20/17 16:15 179/79 03/20/17 16:00 178/82 03/20/17 15:45 176/82 03/20/17 15:30 172/77 03/20/17 15:15 184/77 03/20/17 15:00 172/79 03/20/17 14:45 172/81 03/20/17 14:30 178/53 03/20/17 14:15 179/76 Intake and Output 03/20/17 03/21/17 03/21/17 23:59 07:59 15:59 Intake Total 240 / 240 0 / 0 Output Total 3600 / 3600 0 / 0 Balance -3360 / -3360 0 / 0 0 / 0 Intake: Oral 240 / 240 0 / 0 Output: Urine 0 / 0 0 / 0 Total Dialysis (HD) Output 3600 / 3600 Other: Meal NPO Percent of Meal Consumed 10% Stool Size Large Small Smear Stool Consistency soft loose soft formed Stool Characteristics [place] Stool Color Brown Black Brown Black # Voids 0 # Urine Diapers 1 # Bowel Movement Diapers 1 1 Weight 61.5 kg 61.5 kg Blood Glucose* 129 84 97 Hemodialysis Net Fluid Removed 3000 (mL) Patient Weight 03/21/17 23:59 Weight 61.5 kg - Lab 03/21/17 03:14 03/21/17 03:14 Most recent lab results Calcium 7.7 mg/dL (8.6-10.8) L 03/21/17 03:14 - VTE Documentation of Mechanical Device: Intermittent pneumatic compression device Consult Discharge Plan - Plan Referrals: Abelino Dunlap MD [Primary Care Provider] - 03/29/17 2:00 pm (Please follow up as schedule....)
[2017-03-21] MEDS ORDERED: *HR* Heparin 5,000 UNIT/ML VIAL ONE (14:26)
--- NOTE | 2017-03-21 14:27 | Discharge Summary ---
<Antonio Johnson - Last Filed: 03/21/17 14:25> Date of Encounter: 03/21/17 Time of Encounter: 09:45 - Discharge Diagnosis (1) End stage chronic kidney disease Priority: Primary Status: Acute (2) HTN (hypertension) Priority: Secondary Status: Chronic Qualifiers: Hypertension type: essential hypertension Qualified Code(s): I10 - Essential (primary) hypertension (3) Anemia in chronic kidney disease (CKD) Priority: Secondary Status: Chronic Qualifiers: Chronic kidney disease stage: unspecified stage Qualified Code(s): N18.9 - Chronic kidney disease, unspecified; D63.1 - Anemia in chronic kidney disease; D63.1 - Anemia in chronic kidney disease (4) Sacral decubitus ulcer, stage II Priority: Secondary Status: Acute (5) Hyperkalemia Priority: Secondary Status: Acute (6) Diabetes Priority: Secondary Status: Chronic Qualifiers: Diabetes mellitus type: type 2 Diabetes mellitus complication status: with kidney complications Diabetes mellitus complication detail: with chronic kidney disease Diabetes mellitus [facility] insulin use: unspecified [facility] insulin use status Chronic kidney disease stage: stage 5, not on chronic dialysis Qualified Code(s): E11.22 - Type 2 diabetes mellitus with diabetic chronic kidney disease; N18.5 - Chronic kidney disease, stage 5; N18.5 - Chronic kidney disease, stage 5; N18.5 - Chronic kidney disease, stage 5; N18.5 - Chronic kidney disease, stage 5 (7) DVT prophylaxis Priority: Secondary Status: Acute - Discharge Medications Home Medications: Aspirin [Lo-Dose Aspirin EC] 81 mg PO DAILY 11/23/16 [History] Carvedilol [Coreg] 25 mg PO BID 11/23/16 [History] Ferrous Sulfate [Iron] 325 mg PO DAILY 11/23/16 [History] Folic Acid 1 mg PO DAILY 11/23/16 [History] Furosemide [Lasix] 20 mg PO MOWEFR 11/23/16 [History] Furosemide [Lasix] 40 mg PO TUTHSA 11/23/16 [History] Hydralazine HCl 100 mg PO TID 11/23/16 [History] Isosorbide MONOnitrate [Isosorbide Mononitrate ER] 120 mg PO DAILY 11/23/16 [ History] NIFEdipine [Nifedipine ER] 90 mg PO DAILY 11/23/16 [History] Sodium Bicarbonate 650 mg PO BID 12/11/17 [History] cloNIDine HCl [CloNIDine HCl] 0.1 mg PO TID 03/18/17 [History] Allergies/Adverse Reactions: 3 Allergy/AdvReac Type Severity Reaction Status Date / Time No Known Allergies Allergy Verified 03/18/17 11:18 Procedures/tests Complete & Pending: Procedures Performed prior 72 hours Category Date Time Status IR cvc insrt tunnel wo prt/meat molder [IR] Routine IR 03/21/17 Ordered IR us guide needle place [IR] Routine IR 03/21/17 Ordered Date of admission: 03/18/17 18:27 Primary care physician: Abelino Dunlap MD Consults: 03/18/17 19:46 Consult to Wound Care [CONS] Routine Reason for Consult: Sacral wound Time Notified: 19:46 Call Completed: No 03/18/17 20:07 Consult to Occupational Therapy [CONS] Routine Comment: Evaluate, develop and implement POC Reason for Consult: weakness Consult to Physical Therapy [CONS] Routine Comment: Evaluate, develop and implement POC Reason for Consult: weakness 03/18/17 20:08 Consult to Language Tutor [CONS] Routine Reason for SW Consult: discharge planning- possible ECF placement 03/19/17 08:15 Consult to Dialysis [CONS] ONCE 03/20/17 08:15 Consult to Dialysis [CONS] ONCE 03/20/17 14:54 Consult to Interventional Radiology [CONS] Routine Consulting Provider: Radiology Interventional Cols Reason for Consult: Placement of permanent dialysis catheter Call Completed: No Discharging clinician: Antonio Johnson Anticipated date of discharge: 03/21/17 - Patient Status Disposition: Transfer SNF Condition: Fair Overall status at discharge: patient is progressing back to baseline - Discharge Instructions Follow Up With: Abelino Dunlap MD [Primary Care Provider] - 03/29/17 2:00 pm (Please follow up as schedule....) - Diet and Activity Activity: increase activity as tolerated Diet: advance to your usual diet Hospital course: Ms. Park is a 71 year old female with a past medical history of diabetes, congestive heart failure, hypertension, anemia on EPO, stage 5 CKD stage II sacral decubitus ulcer who presented to the hospital on 03/18/17 with the chief complaint of bedsore and abdominal pain. She has been treated for a sacral decubitus ulcer for the previous 3 weeks. Her niece helps takes care of it. Does not see a professional or wound care clinic. Ulcer is approximately 4 cm in diameter, appears to be stage II. Patient is mostly bedbound due to weakness in her legs. Ulcer started in November. According to niece, patient had been cared for by home health. This has been present for the past few months and her daughter has been treating the ulcer. She denies any fevers chills nausea vomiting. She does have a decreased appetite and has been experiencing hypoglycemia home. She is less active and sleeps a lot does not ambulate on her own. The patient is a Holiness and refuses blood transfusions. During her stay in the hospital, hemoglobin dropped as low as 5.9; on date of discharge, hemoglobin is 6.1. Patient initially was reluctant to go to hemodialysis. Spoke with Dr. Beltre. Patient agreed to start hemodialysis after discussion with nephrology. Agreed to have permacath placed by interventional radiology. Patient received a total of 3 rounds of dialysis while in the hospital. On date of discharge, patient is receiving a permanent dialysis catheter per the recommendation of nephrology. On date of dischage, she is feeling well. Denies weakness, abdominal pain, or pain near her sacral ulcer. Patient will be discharged pending placement in ECF. - Time Spent with Patient Total time spent providing and/or coordinating discharge services: Greater than 30 minutes (41 minutes) - Constitutional Vitals: Temp Pulse Resp BP Pulse Ox 98.4 F 85 12 114/49 98 03/21/17 11:30 03/21/17 14:23 03/21/17 14:23 03/21/17 14:23 03/21/17 14:23 General appearance: Present: A&O X 3, answers questions appropriately - Head Head exam: Present: atraumatic, normocephalic - Eye Eye exam: Present: PERRL, conjuntiva pink, sclera anicteric Pupils: Present: PERRL - Neck Neck exam general surgery: Present: supple, trachea midline. Absent: lymphadenopathy - Respiratory Respiratory exam: Present: CTAB. Absent: accessory muscle use, rales, rhonchi, wheezes - Cardiovascular Cardiovascular exam: Present: RRR, +S1, +S2. Absent: diastolic murmur, gallop, rubs, systolic murmur - Extremities Exam Extremities exam: Present: warm, radial pulses palpable and symmetrical. Absent : calf tenderness, cyanotic, pedal edema - Skin Skin exam: Present: dry, intact - VTE Documentation of Mechanical Device: Intermittent pneumatic compression device <Ramírez Coyne - Last Filed: 03/21/17 14:56> Date of Encounter: 03/21/17 Procedures/tests Complete & Pending: Procedures Performed prior 72 hours Category Date Time Status IR cvc insrt tunnel wo prt/meat molder [IR] Routine IR 03/21/17 Completed IR us guide needle place [IR] Routine IR 03/21/17 Completed Date of admission: 03/18/17 18:27 Primary care physician: Abelino Dunlap MD Consults: 03/18/17 19:46 Consult to Wound Care [CONS] Routine Reason for Consult: Sacral wound Time Notified: 19:46 Call Completed: No 03/18/17 20:07 Consult to Occupational Therapy [CONS] Routine Comment: Evaluate, develop and implement POC Reason for Consult: weakness Consult to Physical Therapy [CONS] Routine Comment: Evaluate, develop and implement POC Reason for Consult: weakness 03/18/17 20:08 Consult to Language Tutor [CONS] Routine Reason for SW Consult: discharge planning- possible ECF placement 03/19/17 08:15 Consult to Dialysis [CONS] ONCE 03/20/17 08:15 Consult to Dialysis [CONS] ONCE 03/20/17 14:54 Consult to Interventional Radiology [CONS] Routine Consulting Provider: Radiology Interventional Cols Reason for Consult: Placement of permanent dialysis catheter Call Completed: No Hospital course: Ms. Park is a 71 year old female - Time Spent with Patient Total time spent providing and/or coordinating discharge services: - Constitutional Vitals: Temp Pulse Resp BP Pulse Ox 98.4 F 76 10 122/51 99 03/21/17 11:30 03/21/17 14:28 03/21/17 14:28 03/21/17 14:28 03/21/17 14:28 - Attending Attestation acute on chronic anemia 2ry to ESRD refusing transfusions I examined this patient and my medical decision-making was reviewed with the Resident Physician. I agree with the documented findings, disposition and treatment plan as described except to the extent set forth below.
--- NOTE | 2017-03-21 14:31 | IR Procedure Note ---
Date of procedure: 03/21/17 Consent Obtained: Verbal consent, Written consent Timeout: Correct patient and procedure verified, Correct site verified, Time out performed, Skin prep completed Local anesthetic: Lidocaine 1% Indications: Renal failure Procedure Performed: Tunneled HD catheter placement Site/Technique: Tunneled right IJ HD catheter placed Results/Findings: Catheter in good position Estimated blood loss (cc): 1 Complications: None; Tolerated procedure well Post Procedure Treatment Plan: May use HD catheter now
--- NOTE | 2017-03-21 14:38 | Physician Discharge Referral ---
<Antonio Johnson - Last Filed: 03/21/17 14:37> [facility] Referral Info Provider in Charge after Transfer: Other Institutional Level of Care: Skilled - Diagnosis (1) End stage chronic kidney disease Priority: Primary Status: Acute (2) HTN (hypertension) Priority: Secondary Status: Chronic (3) Anemia in chronic kidney disease (CKD) Priority: Secondary Status: Chronic (4) Sacral decubitus ulcer, stage II Priority: Secondary Status: Acute (5) Hyperkalemia Priority: Secondary Status: Acute (6) Diabetes Priority: Secondary Status: Chronic (7) DVT prophylaxis Priority: Secondary Status: Acute - Transfer Medications Home Medications: Aspirin [Lo-Dose Aspirin EC] 81 mg PO DAILY 11/23/16 [History] Carvedilol [Coreg] 25 mg PO BID 11/23/16 [History] Ferrous Sulfate [Iron] 325 mg PO DAILY 11/23/16 [History] Folic Acid 1 mg PO DAILY 11/23/16 [History] Furosemide [Lasix] 20 mg PO MOWEFR 11/23/16 [History] Furosemide [Lasix] 40 mg PO TUTHSA 11/23/16 [History] Hydralazine HCl 100 mg PO TID 11/23/16 [History] Isosorbide MONOnitrate [Isosorbide Mononitrate ER] 120 mg PO DAILY 11/23/16 [ History] NIFEdipine [Nifedipine ER] 90 mg PO DAILY 11/23/16 [History] Sodium Bicarbonate 650 mg PO BID 03/18/17 [History] cloNIDine HCl [CloNIDine HCl] 0.1 mg PO TID 03/18/17 [History] Allergies/Adverse Reactions: 3 Allergy/AdvReac Type Severity Reaction Status Date / Time No Known Allergies Allergy Verified 03/18/17 11:18 - Respiratory Orders Smoking Cessation: Smoking cessation has been advised. For more information, call the [place] Tobacco Quit Line at 3-767-HHST-NOW. CERTIFICATION: I certify that the transfer of the above named patient to an Extended Care Facility is necessary for the continuing treatment of the diagnosis listed. The above information is true and accurate reflection of patient's current condition. Confidential - Redisclosure prohibited without a patient's written consent. <Ramírez Coyne - Last Filed: 03/21/17 15:16> [facility] Referral Info Provider in Charge after Transfer: PCP Institutional Level of Care: Skilled - Respiratory Orders Smoking Cessation: Smoking cessation has been advised. For more information, call the [place] Tobacco Quit Line at 3-460-MOGA-NOW. CERTIFICATION: I certify that the transfer of the above named patient to an Extended Care Facility is necessary for the continuing treatment of the diagnosis listed. The above information is true and accurate reflection of patient's current condition. Confidential - Redisclosure prohibited without a patient's written consent.
[2017-03-21] MEDS: Furosemide 40 MG TABLET PO SCH (21:01)
[2017-03-22 05:06] LABS: Mean Corpuscular HGB Conc 32.4 g/dL (31.6-35.5); Mean Corpuscular Hemoglobin 30.4 pg (28.0-33.3); Mean Corpuscular Volume 93.9 fL (83.0-100.0); Mean Platelet Volume 10.6 fL (9.4-12.4); Platelet Count 141 K/mcL (140-400); Red Blood Count 1.81 M/mcL (3.82-4.97); Red Cell Distribution Width 15.1 % (11.5-14.5)
[2017-03-22 05:25] LABS: Calcium 7.7 mg/dL (8.6-10.8); Potassium 3.7 mEq/L (3.5-4.5)
[2017-03-22 05:26] LABS: Hemoglobin 5.5 g/dL (11.5-15.4)
[2017-03-22] MEDS ORDERED: 0.9 % Sodium Chloride 250 ML IVC PRN (07:37)
[2017-03-22] MEDS ORDERED: *HR* Heparin 10,000 UNIT/10 ML VIAL IV PRN (07:37)
[2017-03-22] MEDS: Folic Acid 1 MG TABLET PO SCH (07:42)
[2017-03-22] MEDS: Aspirin Enteric Coated 81 MG Tablet PO SCH (07:42)
[2017-03-22] MEDS: Insulin LISPRO 300 UNITS/3 ML VIAL SQ SCH ×2 (07:43→13:31)
[2017-03-22] MEDS ORDERED: 0.9 % Sodium Chloride 1,000 ML ONE (09:00)
--- NOTE | 2017-03-22 10:01 | Nephrology Progress Note ---
Date of Encounter: 03/22/17 Time of Encounter: 08:45 - Assessment and Plan (1) End stage chronic kidney disease Status: Acute Initiated on HD by my colleague Dr. Beltre. HD today for adherence to a /W/ schedule going forward. After HD today, it would be reasonable for Discharge now that she has a Rt Permacath; and, the next dialysis treatment would tentatively be scheduled for Saturday. Continue to follow a renal protective strategy Anemia: multifactorial, severe. Though she has indications for PRBC transfusion , she has a karen preference and does not accept transfusions. Agree with REHAN, which will be continued thrice weekly at the Dialysis unit. So no need for Aranesp to be give by any group home, since it would be bundled and given at the Dialysis unit. (2) Anemia in chronic kidney disease (CKD) Status: Chronic Qualifiers: Chronic kidney disease stage: unspecified stage Qualified Code(s): N18.9 - Chronic kidney disease, unspecified; D63.1 - Anemia in chronic kidney disease; D63.1 - Anemia in chronic kidney disease (3) Refusal of blood transfusions as patient is Moravian Status: Chronic (4) Diabetes Status: Chronic As per primary. Qualifiers: Diabetes mellitus type: type 2 Diabetes mellitus complication status: with kidney complications Diabetes mellitus complication detail: with chronic kidney disease Diabetes mellitus termite control service representative insulin use: unspecified snf insulin use status Chronic kidney disease stage: stage 5, not on chronic dialysis Qualified Code(s): E11.22 - Type 2 diabetes mellitus with diabetic chronic kidney disease; N18.5 - Chronic kidney disease, stage 5; N18.5 - Chronic kidney disease, stage 5; N18.5 - Chronic kidney disease, stage 5; N18.5 - Chronic kidney disease, stage 5 (5) HTN (hypertension) Status: Chronic Qualifiers: Hypertension type: essential hypertension Qualified Code(s): I10 - Essential (primary) hypertension Subjective Principal diagnosis: ESRD Interval history: Pt was s/e and she did not affirm any new problems with dialysis. No new major events overnight. She did not affirm CP, N/V/D or F/C. Has chronic fatigue, but she reported feeling a little better. Objective - Vital Signs Vital signs: Vital Signs Temp Pulse Resp BP Pulse Ox 03/22/17 07:36 97.9 F 69 16 178/64 98 12/15/17 04:08 98.6 F 68 16 155/57 94 03/21/17 23:14 98.4 F 68 16 123/54 100 03/21/17 20:50 98.1 F 69 15 128/58 99 03/21/17 15:55 97.7 F 80 13 125/50 99 03/21/17 14:28 76 10 122/51 99 03/21/17 14:23 85 12 114/49 98 03/21/17 14:15 71 25 128/58 98 03/21/17 13:04 70 13 111/60 96 03/21/17 11:30 98.4 F 70 13 111/60 96 Intake and Output 03/21/17 03/22/17 03/22/17 23:59 07:59 15:59 Intake Total 240 / 240 0 / 0 740 / 740 Output Total 0 / 0 Balance 240 / 240 0 / 0 740 / 740 Intake: Oral 240 / 240 0 / 0 740 / 740 Output: Urine 0 / 0 Other: Meal Dinner Breakfast Percent of Meal Consumed 0% 5% Stool Size Small Stool Consistency formed Stool Color Black # Urine Diapers 0 1 # Bowel Movements 0 # Bowel Movement Diapers 0 1 Weight 54.2 kg Blood Glucose* 137 97 Patient Weight 03/22/17 23:59 Weight 54.2 kg - General Appearance General appearance: Present: appears started age, chronically ill, fatigue, frail Exam: Short stature EENT: Present: ATNC, PERRL, mucous membranes moist Neck: Present: supple Respiratory: Present: course breath sounds Cardiology: Present: holosystolic murmur, no edema, regular rate, regular rhythm , normal S1, normal S2 Dialysis Vascular Access: Venous Catheter Gastrointestinal: Present: normoactive bowel sounds, no tenderness, no guarding Integumentary: Present: warm and dry Neurologic: Present: no focal deficit, no asterixis, alert and oriented x3 Musculoskeletal: Present: no deformities, no erythema, no cyanosis Psychiatric: Present: mood/affect appropriate, cooperative - Lab 03/22/17 04:34 03/22/17 04:34 Most recent lab results Calcium 7.7 mg/dL (8.6-10.8) L 03/22/17 04:34 - VTE Documentation of Mechanical Device: Intermittent pneumatic compression device Consult Discharge Plan - Plan Referrals: Abelino Dunlap MD [Primary Care Provider] - 03/29/17 2:00 pm (Please follow up as schedule....)
[2017-03-22 13:08] VITALS: BP 160/63
[2017-03-22] MEDS: cloNIDine HCl 0.1 MG TABLET PO SCH (13:34)
[2017-03-22] MEDS: NIFEdipine XL (24 HR) 30 MG TAB.ER.24 PO SCH (13:35)
[2017-03-22] MEDS: hydrALAZINE 25 MG TABLET PO SCH (13:35)
[2017-03-22] MEDS: Isosorbide MONOnitrate (24 HR) 60 MG TAB.ER.24H PO SCH (13:35)
== END 2017-03-22 14:05 | DRG 682 ==
LOC: EMEROO 11:03 → 2ANU 11:03 → SUATTDRO 18:27
PROVIDERS: ADMIT Hospitalist; ATTEND Internal Medicine
PROC: IRPERMA (2017-03-21 12:00)

== ENCOUNTER 2019-03-09 15:53 | Inpatient (IN) ==
[2019-03-09 17:00] LABS: Basophils % 0.7 %; Eosinophils # 0.2 K/mcL (0.0-0.6); Eosinophils % 3.8 %; Hematocrit 33.9 % (35.3-44.9); Hemoglobin 11.5 g/dL (11.5-15.4); Immature Granulocytes % 0.7 % (0-4); Immature Platelets 4.8 % (1.1-6.1); Lymphocytes # 1.6 K/mcL (0.6-4.6); Mean Corpuscular HGB Conc 33.9 g/dL (31.6-35.5); Mean Corpuscular Hemoglobin 32.8 pg (28.0-33.3); Mean Corpuscular Volume 96.6 fL (83.0-100.0); Mean Platelet Volume 11.4 fL (9.4-12.4); Monocytes # 0.5 K/mcL (0.0-1.3); Monocytes % 8.8 %; Neutrophils # 3.4 K/mcL (1.6-8.9); Platelet Count 173 K/mcL (140-400); Red Blood Count 3.51 M/mcL (3.82-4.97); Red Cell Distribution Width 14.3 % (11.5-14.5); White Blood Count 5.8 K/mcL (4.3-11.1)
[2019-03-09 17:13] LABS: INR 0.9; Prothrombin Time 10.7 Seconds (9.4-12.1)
[2019-03-09 17:16] LABS: Activated Partial Thrombo Time 37.7 Seconds (26.0-36.0)
[2019-03-09 17:17] LABS: Albumin/Globulin Ratio 1.3 (1.1-2.2); Bilirubin,Total 0.5 mg/dL (0.3-1.0); Calcium 9.2 mg/dL (8.6-10.3); Potassium 3.2 mEq/L (3.5-5.1)
[2019-03-09 17:20] LABS: Platelet Estimate Normal (Normal); Reactive Lymphocytes Present (Not Present)
[2019-03-09 17:28] LABS: Troponin I 0.04 ng/mL (< 0.04)
[2019-03-09] MEDS ORDERED: Naloxone 0.4 MG/ML INJ IVP PRN (22:02)
[2019-03-09] MEDS ORDERED: Aspirin 325 MG TABLET PO ONE (23:19)
[2019-03-09] MEDS ORDERED: Nitroglycerin 0.4 MG TAB.SUBL SL PRN (23:21)
[2019-03-09] MEDS ORDERED: *HR* Heparin 5,000 UNIT/ML VIAL IVP ONE (23:43)
[2019-03-09] MEDS ORDERED: *HR* Heparin 5,000 UNIT/ML VIAL IVP PRN ×2 (23:43)
[2019-03-09 23:57] LABS: Troponin I 0.06 ng/mL (< 0.04)
[2019-03-10] MEDS ORDERED: *HR* Atropine Sulfate 1 MG/10 ML SYRINGE IVP PRN (00:36)
[2019-03-10 00:51] LABS: Magnesium 1.9 mg/dL (1.6-2.6); Phosphorous 3.2 mg/dL (2.7-4.5)
[2019-03-10 00:57] LABS: Prothrombin Time 11.4 Seconds (9.4-12.1)
[2019-03-10 01:03] LABS: Basophils % 0.5 %; Eosinophils # 0.2 K/mcL (0.0-0.6); Eosinophils % 3.4 %; Hematocrit 33.1 % (35.3-44.9); Immature Granulocytes % 0.5 % (0-4); Lymphocytes # 1.9 K/mcL (0.6-4.6); Mean Corpuscular HGB Conc 33.2 g/dL (31.6-35.5); Mean Corpuscular Hemoglobin 32.5 pg (28.0-33.3); Mean Corpuscular Volume 97.9 fL (83.0-100.0); Mean Platelet Volume 11.1 fL (9.4-12.4); Monocytes # 0.5 K/mcL (0.0-1.3); Monocytes % 8.1 %; Neutrophils # 3.3 K/mcL (1.6-8.9); Platelet Count 200 K/mcL (140-400); Red Blood Count 3.38 M/mcL (3.82-4.97); Red Cell Distribution Width 14.3 % (11.5-14.5); Segmented Neutrophils % 55.5 %; White Blood Count 5.9 K/mcL (4.3-11.1)
[2019-03-10] MEDS: Heparin 25,000 UNIT/250 ML D5W 25,000 UNIT/250 ML IV.SOLN IVC SCH (01:03)
[2019-03-10 01:11] LABS: Calcium 9.3 mg/dL (8.6-10.3); Magnesium 1.9 mg/dL (1.6-2.6); Potassium 3.7 mEq/L (3.5-5.1)
[2019-03-10] MEDS ORDERED: *HR* Ticagrelor 90 MG TABLET PO ONE (02:47)
[2019-03-10 06:34] LABS: Troponin I 0.07 ng/mL (< 0.04)
[2019-03-10 06:40] LABS: Magnesium 2.6 mg/dL (1.6-2.6)
[2019-03-10] MEDS: Aspirin Enteric Coated 81 MG Tablet PO SCH (07:56)
[2019-03-10] MEDS: Ascorbic Acid 500 MG TABLET PO SCH (07:56)
[2019-03-10] MEDS: Folic Acid 1 MG TABLET PO SCH (07:56)
[2019-03-10] MEDS ORDERED: hydrALAZINE 25 MG TABLET PO SCH (09:00)
[2019-03-10] MEDS ORDERED: NIFEdipine XL (24 HR) 30 MG TAB.ER.24 PO SCH (09:00)
[2019-03-10 14:11] LABS: Hepatitis B Surface Antibody < 3.10 mIU/mL
[2019-03-10 14:22] LABS: Hepatitis B Surface Antigen Nonreactive (Nonreactive)
[2019-03-11 03:02] LABS: Basophils % 0.6 %; Eosinophils # 0.3 K/mcL (0.0-0.6); Eosinophils % 4.4 %; Hemoglobin 11.8 g/dL (11.5-15.4); Immature Granulocytes % 0.4 % (0-4); Lymphocytes # 2.2 K/mcL (0.6-4.6); Lymphocytes % 31.7 %; Mean Corpuscular HGB Conc 31.9 g/dL (31.6-35.5); Mean Corpuscular Hemoglobin 32.3 pg (28.0-33.3); Mean Corpuscular Volume 101.4 fL (83.0-100.0); Monocytes # 0.5 K/mcL (0.0-1.3); Monocytes % 7.4 %; Neutrophils # 3.9 K/mcL (1.6-8.9); Platelet Count 187 K/mcL (140-400); Red Blood Count 3.65 M/mcL (3.82-4.97); Red Cell Distribution Width 13.9 % (11.5-14.5); Segmented Neutrophils % 55.5 %
[2019-03-11 03:24] LABS: Calcium 9.6 mg/dL (8.6-10.3); Potassium 4.8 mEq/L (3.5-5.1)
[2019-03-11] MEDS: Heparin 25,000 UNIT/250 ML D5W 25,000 UNIT/250 ML IV.SOLN IVC SCH (05:00)
[2019-03-11] MEDS ORDERED: 0.9 % Sodium Chloride 1,000 ML ONE (07:10)
[2019-03-11] MEDS ORDERED: 0.9 % Sodium Chloride 250 ML IVC PRN (07:19)
[2019-03-11] MEDS ORDERED: 0.9 % Sodium Chloride 1,000 ML PRIME SCH (07:30)
[2019-03-11] MEDS: Aspirin Enteric Coated 81 MG Tablet PO SCH (08:11)
[2019-03-11] MEDS: Folic Acid 1 MG TABLET PO SCH (08:11)
[2019-03-11] MEDS: Ascorbic Acid 500 MG TABLET PO SCH (08:11)
[2019-03-11 13:56] VITALS: BP 146/68
== END 2019-03-11 15:23 | disposition home or self-care (01) | DRG 280 ==
LOC: EMEROOARM 15:53 → 2NENU 15:53 → SUATTDRO 20:27 → 2NENU 20:28 → SUATTDRO 03-10 17:44
PROVIDERS: ADMIT Internal Medicine; ATTEND Family Medicine

== ENCOUNTER 2019-07-31 11:01 | Inpatient (IN) ==
[~2019-07-31 11:01] MED LIST: *HR* Amiodarone 150 MG/3 ML VIAL IVPB ONE; *HR* Amiodarone Premix 360 MG/200 ML BAG IVC ONE; *HR* EPINEPHrine 1 MG/10 ML SYRINGE IVP ONE; *HR* Etomidate 20 MG/10 ML AMPUL IVP ONE; *HR* Norepinephrine 4 MG/4 ML VIAL IVC ONE; *HR* Rocuronium Bromide 100 MG/10 ML VIAL IVC ONE; D5% in Water 250 ML IV BAG IV ONE
[2019-07-31] MEDS ORDERED: *HR* Atropine Sulfate 1 MG/10 ML SYRINGE ONE (11:03)
[2019-07-31] MEDS ORDERED: *HR* Etomidate 20 MG/10 ML AMPUL IVP ONE (11:08)
[2019-07-31] MEDS ORDERED: *HR* Rocuronium Bromide 50 MG/5 ML VIAL IVP ONE (11:08)
[2019-07-31] MEDS ORDERED: Insulin Regular, Human 100 UNIT/ML ONE (11:10)
[2019-07-31] MEDS ORDERED: *HR* Dextrose 50 % in Water (Syg) 50 ML SYRINGE IVP ONE (11:12)
[2019-07-31] MEDS ORDERED: Insulin Human Regular 5 UNIT in 0.9 % Sodium Chloride 10 ML IV ONE (11:12)
[2019-07-31] MEDS ORDERED: Piperacillin/Tazobactam 3.375 GM in 0.9 % Sodium Chloride Mini Bag 100 ML IVPB ONE (11:29)
[2019-07-31] MEDS ORDERED: Azithromycin 500 MG in 0.9 % Sodium Chloride 250 ML IVPB ONE (11:29)
[2019-07-31 11:31] LABS: Basophils # 0.1 K/mcL (0.0-0.2); Basophils % 0.5 %; Eosinophils # 0.2 K/mcL (0.0-0.6); Eosinophils % 2.3 %; Hematocrit 39.9 % (35.3-44.9); Hemoglobin 11.8 g/dL (11.5-15.4); Immature Granulocytes % 0.9 % (0-4); Lymphocytes # 4.1 K/mcL (0.6-4.6); Lymphocytes % 39.2 %; Mean Corpuscular HGB Conc 29.6 g/dL (31.6-35.5); Mean Corpuscular Hemoglobin 30.4 pg (28.0-33.3); Mean Corpuscular Volume 102.8 fL (83.0-100.0); Mean Platelet Volume 11.3 fL (9.4-12.4); Monocytes # 0.6 K/mcL (0.0-1.3); Monocytes % 5.4 %; Neutrophils # 5.3 K/mcL (1.6-8.9); Platelet Count 213 K/mcL (140-400); Red Blood Count 3.88 M/mcL (3.82-4.97); Red Cell Distribution Width 14.6 % (11.5-14.5); Segmented Neutrophils % 51.7 %; White Blood Count 10.3 K/mcL (4.3-11.1)
[2019-07-31 11:36] LABS: Prothrombin Time 11.3 Seconds (9.4-12.1)
[2019-07-31 11:38] LABS: Activated Partial Thrombo Time 53.4 Seconds (26.0-36.0)
[2019-07-31 11:40] LABS: ABG Base Excess 4 mEq/L (-2 to 3); ABG HCO3 30 mEq/L (21-27); ABG Oxygen Saturation 100 % (95-98); ABG PCO2 53 mmHg (35-45); ABG PH 7.36 pH Units (7.32-7.45); ABG PO2 285 mmHg (85-104); ABG TCO2 32 mEq/L (20-26); Blood Gas Modality AF; Blood Gas VT 450 cc
[2019-07-31] MEDS ORDERED: Piperacillin/Tazobactam 3.375 GM in Water for inj. (sterile) 20 ML IVP ONE (12:14)
[2019-07-31 13:00] LABS: Alanine Aminotransferase 5 Units/L (7-52); Albumin 4.5 g/dL (3.5-5.7); Albumin/Globulin Ratio 1.5 (1.1-2.2); Alkaline Phosphatase 61 Units/L (34-104); Aspartate Amino Transferase 19 Units/L (13-39); BUN/Creatinine Ratio 6 (6-26); Bilirubin,Direct 0.1 mg/dL (0.0-0.2); Bilirubin,Indirect 0.6 mg/dL (0.0-1.0); Bilirubin,Total 0.7 mg/dL (0.3-1.0); Blood Urea Nitrogen 33 mg/dL (8-23); Calcium 10.5 mg/dL (8.6-10.3); Carbon Dioxide 28 mEq/L (23-29); Chloride 101 mEq/L (98-107); Ethanol < 10 mg/dL (Less than 10); Globulin 3.1 g/dL (2.4-3.5); Glucose 200 mg/dL (70-105); Osmolality,Calculated 301 (280-300); Potassium 4.3 mEq/L (3.5-5.1); Sodium 139 mEq/L (136-145); Total Protein 7.6 g/dL (6.4-8.9); eGFR For African Americans 10 (> 60); eGFR For Non-African Americans 8 (> 60)
[2019-07-31] MEDS: FentaNYL (PF) 1,000 MCG in 0.9 % Sodium Chloride 80 ML IVC SCH (13:07)
[2019-07-31 13:17] LABS: Troponin I 0.05 ng/mL (< 0.04)
[2019-07-31] MEDS ORDERED: 0.9 % Sodium Chloride 250 ML IVC PRN (13:18)
[2019-07-31] MEDS ORDERED: 0.9 % Sodium Chloride 1,000 ML PRIME SCH (13:30)
[2019-07-31 13:52] LABS: Thyroid Stimulating Hormone 5.225 mcIU/mL (0.340-5.600)
[2019-07-31] MEDS ORDERED: Artificial Tears SOLN 15 ML BOTTLE BOTH EYES PRN (15:54)
[2019-07-31] MEDS ORDERED: Naloxone 0.4 MG/ML INJ IVP PRN (15:54)
[2019-07-31] MEDS ORDERED: Acetaminophen 325 MG TABLET PO PRN (15:54)
[2019-07-31] MEDS ORDERED: Vancomycin 1 EACH in 0.9 % Sodium Chloride 250 ML IVPB SCH (16:00)
[2019-07-31 17:26] LABS: ABG Base Excess 6 mEq/L (-2 to 3); ABG HCO3 28 mEq/L (21-27); ABG Oxygen Saturation 100 % (95-98); ABG PCO2 32 mmHg (35-45); ABG PH 7.56 pH Units (7.32-7.45); ABG PO2 141 mmHg (85-104); ABG TCO2 29 mEq/L (20-26); Blood Gas Modality ASSIST CONTROL; Blood Gas VT 450 cc
[2019-07-31] MEDS ORDERED: *HR* Heparin 5,000 UNIT/ML VIAL SQ SCH (18:00)
[2019-07-31] MEDS: Doxycycline 100 MG in 0.9 % Sodium Chloride Mini Bag 100 ML IVPB SCH (18:06)
[2019-07-31] MEDS: Artificial Tears SOLN 15 ML BOTTLE BOTH EYES SCH ×2 (18:07→20:57)
[2019-07-31] MEDS: Piperacillin/Tazobactam 3.375 GM in 0.9 % Sodium Chloride Mini Bag 100 ML IVPB SCH (19:41)
[2019-07-31] MEDS: Chlorhexidine Rinse 15 ML MOUTHWASH MM SCH (20:57)
[2019-07-31] MEDS: niCARdipine 20 MG in 0.9 % Sodium Chloride 192 ML IVC SCH (21:55)
[2019-07-31] MEDS ORDERED: *HR* Dextrose 50 % in Water (Syg) 50 ML SYRINGE IVP PRN (21:55)
[2019-07-31] MEDS ORDERED: Dextrose Gel 15 GM/37.5 ML TUBE PO PRN ×2 (21:55)
[2019-07-31] MEDS ORDERED: D5% in Water 1,000 ML IVC PRN (21:55)
[2019-07-31 22:24] LABS: Hepatitis B Surface Antibody < 3.10 mIU/mL
[2019-07-31 22:34] LABS: Hepatitis B Surface Antigen Nonreactive (Nonreactive)
[2019-08-01 00:31] LABS: ABG Base Excess 3 mEq/L (-2 to 3); ABG HCO3 23 mEq/L (21-27); ABG Oxygen Saturation 98 % (95-98); ABG PCO2 23 mmHg (35-45); ABG PH 7.62 pH Units (7.32-7.45); ABG PO2 77 mmHg (85-104); ABG TCO2 24 mEq/L (20-26); Blood Gas Modality AF; Blood Gas VT 450 cc
[2019-08-01 00:44] LABS: Hematocrit 34.5 % (35.3-44.9); Hemoglobin 10.8 g/dL (11.5-15.4); Mean Corpuscular HGB Conc 31.3 g/dL (31.6-35.5); Mean Corpuscular Hemoglobin 30.6 pg (28.0-33.3); Mean Corpuscular Volume 97.7 fL (83.0-100.0); Mean Platelet Volume 12.3 fL (9.4-12.4); Platelet Count 220 K/mcL (140-400); Red Blood Count 3.53 M/mcL (3.82-4.97); Red Cell Distribution Width 14.6 % (11.5-14.5); White Blood Count 10.4 K/mcL (4.3-11.1)
[2019-08-01 00:53] LABS: INR 1.1; Prothrombin Time 12.4 Seconds (9.4-12.1)
[2019-08-01 00:56] LABS: Activated Partial Thrombo Time 44.2 Seconds (26.0-36.0)
[2019-08-01] MEDS: Insulin LISPRO 300 UNITS/3 ML VIAL SQ SCH ×4 (02:35→18:39)
[2019-08-01] MEDS: *HR* Heparin 5,000 UNIT/ML VIAL SQ SCH ×2 (02:40→04:48)
[2019-08-01] MEDS: Artificial Tears SOLN 15 ML BOTTLE BOTH EYES SCH ×6 (02:40→20:00)
[2019-08-01] MEDS: Piperacillin/Tazobactam 3.375 GM in 0.9 % Sodium Chloride Mini Bag 100 ML IVPB SCH ×2 (03:24→11:16)
[2019-08-01 03:30] LABS: Hematocrit 35.8 % (35.3-44.9); Hemoglobin 11.1 g/dL (11.5-15.4); Mean Corpuscular Hemoglobin 30.7 pg (28.0-33.3); Mean Corpuscular Volume 99.2 fL (83.0-100.0); Mean Platelet Volume 11.7 fL (9.4-12.4); Platelet Count 204 K/mcL (140-400); Red Blood Count 3.61 M/mcL (3.82-4.97); Red Cell Distribution Width 14.7 % (11.5-14.5); White Blood Count 12.5 K/mcL (4.3-11.1)
[2019-08-01 03:37] LABS: INR 1.1; Prothrombin Time 12.3 Seconds (9.4-12.1)
[2019-08-01 03:54] LABS: Troponin I 0.91 ng/mL (< 0.04)
[2019-08-01] MEDS: FentaNYL (PF) 1,000 MCG in 0.9 % Sodium Chloride 80 ML IVC SCH ×3 (03:56→23:45)
[2019-08-01] MEDS: Doxycycline 100 MG in 0.9 % Sodium Chloride Mini Bag 100 ML IVPB SCH ×2 (04:51→18:10)
[2019-08-01 05:45] LABS: ABG Base Excess 3 mEq/L (-2 to 3); ABG HCO3 27 mEq/L (21-27); ABG Oxygen Saturation 99 % (95-98); ABG PCO2 35 mmHg (35-45); ABG PH 7.49 pH Units (7.32-7.45); ABG PO2 113 mmHg (85-104); ABG TCO2 28 mEq/L (20-26); Blood Gas Modality AF; Blood Gas VT 380 cc
[2019-08-01 05:53] LABS: Albumin 3.8 g/dL (3.5-5.7); Albumin/Globulin Ratio 1.4 (1.1-2.2); Bilirubin,Direct 0.3 mg/dL (0.0-0.2); Bilirubin,Indirect 0.6 mg/dL (0.0-1.0); Bilirubin,Total 0.9 mg/dL (0.3-1.0); Calcium 9.9 mg/dL (8.6-10.3); Globulin 2.8 g/dL (2.4-3.5); Phosphorous 2.2 mg/dL (2.7-4.5); Potassium 3.5 mEq/L (3.5-5.1); Total Protein 6.6 g/dL (6.4-8.9)
[2019-08-01] MEDS ORDERED: *HR* Heparin 5,000 UNIT/ML VIAL IVP PRN ×2 (06:22)
[2019-08-01] MEDS ORDERED: *HR* Heparin 5,000 UNIT/ML VIAL IVP ONE (06:22)
[2019-08-01] MEDS: Heparin 25,000 UNIT/250 ML D5W 25,000 UNIT/250 ML IV.SOLN IVC SCH (07:02)
[2019-08-01] MEDS ORDERED: Vancomycin 500 MG in 0.9 % Sodium Chloride Mini Bag 100 ML IVPB ONE (07:14)
[2019-08-01] MEDS ORDERED: Aspirin 81 MG TAB.CHEW ONE (08:27)
[2019-08-01] MEDS: Aspirin 81 MG TAB.CHEW PO SCH (08:50)
[2019-08-01] MEDS: Chlorhexidine Rinse 15 ML MOUTHWASH MM SCH ×2 (08:50→23:37)
[2019-08-01] MEDS: Pantoprazole 40 MG VIAL IVP SCH (08:50)
[2019-08-01] MEDS: Folic Acid 1 MG TABLET PO SCH (08:51)
[2019-08-01] MEDS ORDERED: Aspirin Enteric Coated 81 MG Tablet PO SCH (09:00)
[2019-08-01 21:14] LABS: Heparin anti-factor XA UFH 0.97 IU/mL (0.30-0.70); INR 1.2; Prothrombin Time 13.5 Seconds (9.4-12.1)
[2019-08-01 21:30] LABS: Activated Partial Thrombo Time 232.6 Seconds (26.0-36.0)
[2019-08-01 23:31] LABS: Hematocrit 27.8 % (35.3-44.9); Hemoglobin 8.7 g/dL (11.5-15.4)
[2019-08-01 23:33] LABS: Bilirubin,Urine Small (Negative); Blood,Urine Moderate (Negative); Clarity,Urine Turbid (Clear); Color,Urine Dark Yellow (Yellow); Glucose,Urine (UA) Normal (Normal); Ketones,Urine Trace mg/dL (Negative); Leukocyte Esterase,Urine Large (Negative); Nitrite,Urine Negative (Negative); PH,Urine 6.5 pH Units (5.0-8.0); Protein,Urine >=1000 mg/dL (Neg-Trace); Specific Gravity,Urine 1.024 (1.010-1.025); Urobilinogen,Urine Normal (Normal)
[2019-08-01 23:35] LABS: Bacteria,Urine None Seen per hpf (None-Few); Hyaline Casts,Urine None Seen per lpf (None-Few); RBC,Urine 50-100 per hpf (0-3); Squamous Epithelial Cell,Urine Many per lpf (None-Few); WBC,Urine TNTC per hpf (0-3)
[2019-08-01 23:57] LABS: Amphetamine Screen,Urine Negative ng/mL (Cutoff=1000); Barbiturate Screen,Urine Negative ng/mL (Cutoff=200); Benzodiazepines Screen,Urine Positive ng/mL (Cutoff=200); Cannabinoid Screen,Urine Negative ng/mL (Cutoff = 50); Cocaine Screen,Urine Negative ng/mL (Cutoff= 300); Opiate Screen,Urine Negative ng/mL (Cutoff=300); Phencyclidine Screen,Urine Negative ng/mL (Cutoff=25)
[2019-08-02] MEDS: Artificial Tears SOLN 15 ML BOTTLE BOTH EYES SCH ×6 (00:03→20:00)
[2019-08-02] MEDS: Insulin LISPRO 300 UNITS/3 ML VIAL SQ SCH ×4 (00:04→17:52)
[2019-08-02] MEDS: Piperacillin/Tazobactam 3.375 GM in 0.9 % Sodium Chloride Mini Bag 100 ML IVPB SCH ×2 (01:00→15:04)
[2019-08-02 02:32] LABS: Calcium 9.2 mg/dL (8.6-10.3); Magnesium 2.7 mg/dL (1.6-2.6); Potassium 3.5 mEq/L (3.5-5.1)
[2019-08-02 04:41] LABS: Basophils % 0.4 %; Eosinophils # 0.2 K/mcL (0.0-0.6); Eosinophils % 1.6 %; Hematocrit 27.3 % (35.3-44.9); Hemoglobin 8.6 g/dL (11.5-15.4); Immature Granulocytes % 0.7 % (0-4); Lymphocytes # 1.2 K/mcL (0.6-4.6); Lymphocytes % 11.6 %; Mean Corpuscular HGB Conc 31.5 g/dL (31.6-35.5); Mean Corpuscular Hemoglobin 31.5 pg (28.0-33.3); Mean Platelet Volume 12.2 fL (9.4-12.4); Monocytes # 0.7 K/mcL (0.0-1.3); Monocytes % 7.4 %; Neutrophils # 7.9 K/mcL (1.6-8.9); Platelet Count 149 K/mcL (140-400); Red Blood Count 2.73 M/mcL (3.82-4.97); Red Cell Distribution Width 14.9 % (11.5-14.5); Segmented Neutrophils % 78.3 %
[2019-08-02 04:58] LABS: Albumin 3.1 g/dL (3.5-5.7); Albumin/Globulin Ratio 1.3 (1.1-2.2); Bilirubin,Direct 0.2 mg/dL (0.0-0.2); Bilirubin,Indirect 0.6 mg/dL (0.0-1.0); Bilirubin,Total 0.8 mg/dL (0.3-1.0); Calcium 9.3 mg/dL (8.6-10.3); Globulin 2.3 g/dL (2.4-3.5); Magnesium 2.7 mg/dL (1.6-2.6); Phosphorous 4.3 mg/dL (2.7-4.5); Potassium 3.6 mEq/L (3.5-5.1); Total Protein 5.4 g/dL (6.4-8.9)
[2019-08-02] MEDS: Doxycycline 100 MG in 0.9 % Sodium Chloride Mini Bag 100 ML IVPB SCH ×2 (06:05→17:20)
[2019-08-02] MEDS: Heparin 25,000 UNIT/250 ML D5W 25,000 UNIT/250 ML IV.SOLN IVC SCH (06:52)
[2019-08-02] MEDS ORDERED: Vancomycin 500 MG in 0.9 % Sodium Chloride Mini Bag 100 ML IVPB ONE (07:00)
[2019-08-02] MEDS ORDERED: Aminoglycoside Consult 1 EACH MC ONE (07:29)
[2019-08-02] MEDS: niCARdipine 20 MG in 0.9 % Sodium Chloride 192 ML IVC SCH (08:22)
[2019-08-02] MEDS: Chlorhexidine Rinse 15 ML MOUTHWASH MM SCH ×2 (08:26→20:00)
[2019-08-02] MEDS: Pantoprazole 40 MG VIAL IVP SCH (08:27)
[2019-08-02] MEDS: Aspirin 81 MG TAB.CHEW PO SCH (08:27)
[2019-08-02] MEDS: Folic Acid 1 MG TABLET PO SCH (08:27)
[2019-08-02] MEDS ORDERED: 0.9 % Sodium Chloride 1,000 ML ONE (09:32)
[2019-08-02] MEDS ORDERED: Heparin 1,000 UNITS/500 mL 500 ML ONE (09:32)
[2019-08-02] MEDS ORDERED: ISOVUE-370 200 ML INFUS..BTL ONE (09:32)
[2019-08-02] MEDS ORDERED: *HR* Heparin 10,000 UNIT/10 ML VIAL ONE (09:32)
[2019-08-02] MEDS ORDERED: Nitroglycerin 1,000 MCG/10 ML VIAL IV ONE (09:33)
[2019-08-02] MEDS: *HR* Heparin 5,000 UNIT/ML VIAL SQ SCH (17:20)
[2019-08-02] MEDS: FentaNYL (PF) 1,000 MCG in 0.9 % Sodium Chloride 80 ML IVC SCH (17:20)
[2019-08-03] MEDS: Artificial Tears SOLN 15 ML BOTTLE BOTH EYES SCH ×7 (00:17→23:48)
[2019-08-03] MEDS: Piperacillin/Tazobactam 3.375 GM in 0.9 % Sodium Chloride Mini Bag 100 ML IVPB SCH ×2 (00:44→14:35)
[2019-08-03] MEDS: FentaNYL (PF) 1,000 MCG in 0.9 % Sodium Chloride 80 ML IVC SCH (02:00)
[2019-08-03 03:57] LABS: Hematocrit 23.8 % (35.3-44.9); Hemoglobin 7.5 g/dL (11.5-15.4); Mean Corpuscular HGB Conc 31.5 g/dL (31.6-35.5); Mean Corpuscular Hemoglobin 31.9 pg (28.0-33.3); Mean Corpuscular Volume 101.3 fL (83.0-100.0); Mean Platelet Volume 12.1 fL (9.4-12.4); Platelet Count 144 K/mcL (140-400); Red Blood Count 2.35 M/mcL (3.82-4.97); Red Cell Distribution Width 14.9 % (11.5-14.5); White Blood Count 13.3 K/mcL (4.3-11.1)
[2019-08-03 03:58] LABS: INR 1.1; Prothrombin Time 12.7 Seconds (9.4-12.1)
[2019-08-03 04:02] LABS: Activated Partial Thrombo Time 35.6 Seconds (26.0-36.0)
[2019-08-03 04:23] LABS: Calcium 9.4 mg/dL (8.6-10.3); Potassium 4.7 mEq/L (3.5-5.1)
[2019-08-03 05:09] LABS: ABG Base Excess -1 mEq/L (-2 to 3); ABG HCO3 24 mEq/L (21-27); ABG Oxygen Saturation 99 % (95-98); ABG PCO2 41 mmHg (35-45); ABG PH 7.38 pH Units (7.32-7.45); ABG PO2 146 mmHg (85-104); ABG TCO2 26 mEq/L (20-26); Blood Gas Modality AF; Blood Gas VT 380 cc
[2019-08-03] MEDS: Insulin LISPRO 300 UNITS/3 ML VIAL SQ SCH ×5 (05:51→23:48)
[2019-08-03] MEDS: Doxycycline 100 MG in 0.9 % Sodium Chloride Mini Bag 100 ML IVPB SCH (05:56)
[2019-08-03] MEDS: *HR* Heparin 5,000 UNIT/ML VIAL SQ SCH ×2 (05:56→18:15)
[2019-08-03] MEDS ORDERED: 0.9 % Sodium Chloride 250 ML IVC PRN ×2 (07:29→12:43)
[2019-08-03] MEDS ORDERED: *HR* Dextrose 50 % in Water (Syg) 50 ML SYRINGE IVC ONE (09:29)
[2019-08-03] MEDS ORDERED: *HR* EPINEPHrine 1 MG/10 ML SYRINGE IVP ONE (09:29)
[2019-08-03] MEDS ORDERED: EPINEPHrine 1 MG/ML VIAL IV ONE (09:29)
[2019-08-03] MEDS: Pantoprazole 40 MG VIAL IVP SCH (09:41)
[2019-08-03] MEDS: Chlorhexidine Rinse 15 ML MOUTHWASH MM SCH ×2 (09:41→20:24)
[2019-08-03] MEDS: Folic Acid 1 MG TABLET PO SCH (09:42)
[2019-08-03] MEDS: Aspirin 81 MG TAB.CHEW PO SCH (09:42)
[2019-08-03 10:41] LABS: Albumin/Globulin Ratio 1.3 (1.1-2.2); Bilirubin,Direct 0.3 mg/dL (0.0-0.2); Bilirubin,Indirect 0.6 mg/dL (0.0-1.0); Bilirubin,Total 0.9 mg/dL (0.3-1.0); Globulin 3.2 g/dL (2.4-3.5); Total Protein 7.2 g/dL (6.4-8.9); Troponin I 1.09 ng/mL (< 0.04)
[2019-08-03] MEDS: Albumin 25% 25gram/100mL 100 GM/400 ML IV.SOLN ONE ×4 (11:53→12:20)
[2019-08-03] MEDS ORDERED: *HR* Norepinephrine 4 MG/4 ML VIAL IVC ONE (12:05)
[2019-08-03] MEDS ORDERED: D5% in Water 250 ML ONE (12:05)
[2019-08-03] MEDS: Norepinephrine 4 MG in 0.9 % Sodium Chloride 250 ML IVC SCH ×2 (12:10→20:00)
[2019-08-03 12:12] LABS: ABG Base Excess -11 mEq/L (-2 to 3); ABG HCO3 16 mEq/L (21-27); ABG Oxygen Saturation 98 % (95-98); ABG PCO2 37 mmHg (35-45); ABG PH 7.24 pH Units (7.32-7.45); ABG PO2 121 mmHg (85-104); ABG TCO2 17 mEq/L (20-26); Blood Gas Modality ASSIST CONTROL; Blood Gas VT 380 cc
[2019-08-03 12:16] LABS: Basophils # 0.1 K/mcL (0.0-0.2); Basophils % 0.3 %; Eosinophils # 0.1 K/mcL (0.0-0.6); Eosinophils % 0.5 %; Hematocrit 24.5 % (35.3-44.9); Hemoglobin 7.3 g/dL (11.5-15.4); Immature Granulocytes % 3.9 % (0-4); Lymphocytes # 6.8 K/mcL (0.6-4.6); Lymphocytes % 32.2 %; Mean Corpuscular HGB Conc 29.8 g/dL (31.6-35.5); Mean Corpuscular Hemoglobin 31.2 pg (28.0-33.3); Mean Corpuscular Volume 104.7 fL (83.0-100.0); Mean Platelet Volume 12.5 fL (9.4-12.4); Monocytes # 0.8 K/mcL (0.0-1.3); Monocytes % 3.7 %; Neutrophils # 12.6 K/mcL (1.6-8.9); Nucleated Red Blood Cells 0.4 /100 WBC (0); Platelet Count 162 K/mcL (140-400); Red Blood Count 2.34 M/mcL (3.82-4.97); Red Cell Distribution Width 14.7 % (11.5-14.5); Segmented Neutrophils % 59.4 %
[2019-08-03 12:17] LABS: White Blood Count 21.2 K/mcL (4.3-11.1)
[2019-08-03 12:19] LABS: VBG Ionized Calcium 1.07 mmol/L (1.15-1.35)
[2019-08-03 12:24] LABS: INR 1.1; Prothrombin Time 12.9 Seconds (9.4-12.1)
[2019-08-03 12:27] LABS: Activated Partial Thrombo Time 36.4 Seconds (26.0-36.0)
[2019-08-03 12:30] LABS: Albumin 2.9 g/dL (3.5-5.7); Albumin/Globulin Ratio 1.3 (1.1-2.2); Bilirubin,Total 0.9 mg/dL (0.3-1.0); Calcium 8.5 mg/dL (8.6-10.3); Globulin 2.3 g/dL (2.4-3.5); Potassium 5.2 mEq/L (3.5-5.1); Total Protein 5.2 g/dL (6.4-8.9)
[2019-08-03] MEDS ORDERED: Calcium Chloride 2,000 MG in 0.9 % Sodium Chloride 100 ML IVPB STA (13:09)
[2019-08-03] MEDS: niCARdipine 20 MG in 0.9 % Sodium Chloride 192 ML IVC SCH (13:22)
[2019-08-03 13:27] LABS: Magnesium 3.8 mg/dL (1.6-2.6); Phosphorous 7.7 mg/dL (2.7-4.5)
[2019-08-03 13:31] LABS: Troponin I 0.92 ng/mL (< 0.04)
[2019-08-03 16:39] LABS: ABG Base Excess -7 mEq/L (-2 to 3); ABG HCO3 19 mEq/L (21-27); ABG Oxygen Saturation 99 % (95-98); ABG PCO2 35 mmHg (35-45); ABG PH 7.34 pH Units (7.32-7.45); ABG PO2 123 mmHg (85-104); ABG TCO2 20 mEq/L (20-26); Blood Gas Modality ASSIST CONTROL; Blood Gas VT 380 cc
[2019-08-03] MEDS ORDERED: Pantoprazole 40 MG VIAL IVP SCH (21:00)
[2019-08-04] MEDS: Piperacillin/Tazobactam 3.375 GM in 0.9 % Sodium Chloride Mini Bag 100 ML IVPB SCH (01:19)
[2019-08-04 03:23] LABS: Basophils % 0.1 %; Hematocrit 19.1 % (35.3-44.9); Lymphocytes % 6.7 %; Mean Corpuscular HGB Conc 29.8 g/dL (31.6-35.5); Nucleated Red Blood Cells 0.2 /100 WBC (0)
[2019-08-04 03:25] LABS: Immature Granulocytes % 1.6 % (0-4); Immature Platelets 13.5 % (1.1-6.1); Lymphocytes # 1.5 K/mcL (0.6-4.6); Mean Corpuscular Hemoglobin 31.5 pg (28.0-33.3); Mean Corpuscular Volume 105.5 fL (83.0-100.0); Mean Platelet Volume 12.3 fL (9.4-12.4); Monocytes # 1.1 K/mcL (0.0-1.3); Monocytes % 5.1 %; Neutrophils # 19.3 K/mcL (1.6-8.9); Red Blood Count 1.81 M/mcL (3.82-4.97); Segmented Neutrophils % 86.5 %; White Blood Count 22.3 K/mcL (4.3-11.1)
[2019-08-04 03:30] LABS: Platelet Count 91 K/mcL (140-400)
[2019-08-04 03:35] LABS: Hemoglobin 5.7 g/dL (11.5-15.4)
[2019-08-04] MEDS: Artificial Tears SOLN 15 ML BOTTLE BOTH EYES SCH (03:35)
[2019-08-04] MEDS: Insulin LISPRO 300 UNITS/3 ML VIAL SQ SCH (03:36)
[2019-08-04 03:41] LABS: ABG Base Excess -14 mEq/L (-2 to 3); ABG HCO3 13 mEq/L (21-27); ABG Oxygen Saturation 100 % (95-98); ABG PCO2 31 mmHg (35-45); ABG PH 7.22 pH Units (7.32-7.45); ABG PO2 453 mmHg (85-104); ABG TCO2 14 mEq/L (20-26); Blood Gas Modality ASSIST CONTROL; Blood Gas VT 380 cc
[2019-08-04 03:41] LABS: Calcium 10.1 mg/dL (8.6-10.3); Magnesium 3.6 mg/dL (1.6-2.6); Phosphorous 9.4 mg/dL (2.7-4.5); Potassium 5.9 mEq/L (3.5-5.1)
[2019-08-04 04:02] LABS: Platelet Estimate Slight Decrease (Normal)
[2019-08-04] MEDS: *HR* Heparin 5,000 UNIT/ML VIAL SQ SCH (05:52)
[2019-08-04] MEDS ORDERED: EPINEPHrine 1 MG/ML VIAL ONE (07:24)
[2019-08-04 07:39] VITALS: BP 94/31
[2019-08-04] MEDS ORDERED: Famotidine 20 MG/2 ML VIAL IVP SCH (18:00)
== END 2019-08-04 07:30 | disposition expired ==
LOC: EMEROOARM 11:01 → 2NENU 13:50 → ICNU 08-01 20:35
PROVIDERS: ADMIT Pediatrics; ATTEND Pediatrics